=== PATIENT | male | born 1950 | race Caucasian/White ===

== ENCOUNTER 2018-07-01 11:08 | Day surgery (SDC) | payer MEDICARE, OTHER ==
[2018-06-29 14:46] VITALS: BMI 28.8
[~2018-07-01 11:08] MED LIST: LACTATED RINGERS 1,000 ML IV SCH
[2018-07-01 11:55] VITALS: RESP 16; TEMP 97.5
[2018-07-01] MEDS ORDERED: LIDOCAINE 1% 20 ML VIAL (10MG/ML) FOR IV START INTRADERMA ONE (12:01)
[2018-07-01] MEDS ORDERED: PROPOFOL 10 MG/ML 20 ML VIAL IV ONE (12:31)
--- NOTE | 2018-07-01 12:34 | P.GSHP ---
History of Present Illness H&P Date: 07/01/18 Chief Complaint: Colon cancer screening Patient here today for colonoscopy. Last colonoscopy 10 years ago. No family history of colon cancer. No bowel related complaints. Past Medical History Past Medical History: Cancer, Eye Disorder, Hyperlipidemia, Hypertension, Neurologic Disorder Additional Past Medical History / Comment(s): melanoma 30 yrs ago, hand tremors , Parkinson's, glaucoma History of Any Multi-Drug Resistant Organisms: None Reported Past Surgical History: Hernia Repair, Orthopedic Surgery Additional Past Surgical History / Comment(s): colonoscopy, ORIF left ankle, kelvin rotator cuff repair, arthroscopy knee, cataracts removed Past Anesthesia/Blood Transfusion Reactions: No Reported Reaction Smoking Status: Never smoker - Past Family History Father Family Medical History: Cancer Medications and Allergies Home Medications Medication Instructions Recorded Confirmed Type Amantadine HCl [Symmetrel] 100 mg PO TID 06/29/18 07/01/18 History Aspirin 81 mg PO DAILY 06/29/18 07/01/18 History Carbidopa-Levodopa 25-100 mg 2 each PO QID 06/29/18 07/01/18 History [Sinemet 25-100] Metoprolol Succinate [Toprol Xl] 50 mg PO HS 06/29/18 07/01/18 History Simvastatin [Zocor] 20 mg PO HS 06/29/18 07/01/18 History clonazePAM [KlonoPIN] 0.5 mg PO HS 06/29/18 07/01/18 History Allergies Allergy/AdvReac Type Severity Reaction Status Date / Time No Known Allergies Allergy Verified 07/01/18 11:48 Surgical - Exam Vital Signs Temp Pulse Resp BP Pulse Ox 97.5 F L 59 L 16 137/62 95 07/01/18 11:49 07/01/18 11:49 07/01/18 11:49 07/01/18 11:49 07/01/18 11:49 Physical exam: General: Well-developed, well-nourished HEENT: Normocephalic, sclerae nonicteric Abdomen: Nontender, nondistended Extremities: No edema Neuro: Alert and oriented Assessment and Plan (1) Colon cancer screening Narrative/Plan: Will proceed with colonoscopy at this time. Current Visit: Yes Status: Acute Code(s): Z12.11 - ENCOUNTER FOR SCREENING FOR MALIGNANT NEOPLASM OF COLON SNOMED Code(s): 287670225
--- NOTE | 2018-07-01 12:48 | P.PCN ---
Date of Procedure: 07/01/18 Procedure(s) Performed: PREOPERATIVE DIAGNOSIS: Colon cancer screening POSTOPERATIVE DIAGNOSIS: Diverticulosis, poor prep PROCEDURE: Colonoscopy ANESTHESIA: MAC SURGEON: Edouard Briones M.D. SPECIMENS: None ENDOSCOPIC PROCEDURE: The patient was placed on the endoscopy table in the left decubitus position. The Olympus colonoscope was inserted into the anus and passed under direct visualization to the base of the cecum. The appendiceal orifice was visualized. From that point the scope was slowly withdrawn inspecting all surfaces carefully. There were no neoplastic inflammatory or polypoid lesions throughout the cecum, ascending, transverse, descending, sigmoid and rectum. The patient's prep overall was quite poor. There was retained liquid and solid stool seen scattered throughout. There was moderate left-sided diverticulosis noted. Digital rectal examination was normal. The patient was taken to the recovery room in stable condition per anesthesia guidelines. RECOMMENDATIONS: Increase fiber. Consider short-term follow-up given the poor quality of the study.
[2018-07-01 13:16] VITALS: PULSE 52
[2018-07-01 13:30] VITALS: BP 121/75
== END 2018-07-01 13:48 | disposition home or self-care (01) ==
LOC: ORWHC2ENDO 11:08
PROVIDERS: ATTEND Surgery
DX: Z12.11 Encounter for screening for malignant neoplasm of colon (principal); K57.30 Diverticulosis of large intestine without perforation or abscess without bleeding; H40.9 Unspecified glaucoma; E78.5 Hyperlipidemia, unspecified; I10 Essential (primary) hypertension; G20 Parkinson's disease; Z85.820 Personal history of malignant melanoma of skin; Z79.82 Long term (current) use of aspirin; Z79.899 Other long term (current) drug therapy
CPT/HCPCS: J2704; G0121; 45378

== ENCOUNTER 2019-10-14 11:01 | Inpatient (IN) | payer MEDICARE, OTHER ==
[2019-10-14] MEDS ORDERED: SODIUM CHLORIDE 0.9% 500 ML 500 ML IV STA (11:46)
[2019-10-14] MEDS ORDERED: MECLIZINE 12.5 MG TAB PO STA (11:51)
--- NOTE | 2019-10-14 12:04 | ED ---
General Adult HPI - General Source: patient, RN notes reviewed, old records reviewed Mode of arrival: wheelchair Limitations: physical limitation <Moy Clayton - Last Filed: 10/14/19 14:48> <Chula Barbosa - Last Filed: 10/22/19 13:02> - General Chief complaint: Dizziness Stated complaint: dizzy, vomiting Time Seen by Provider: 10/14/19 11:36 - History of Present Illness Initial comments: 69-year-old male patient past history significant for Parkinson's disease, hypertension, hyperlipidemia presents to ED for chief complaint sensation of room spinning about him for the last 2 days. Percocet making her feel dizzy. Patient also reports that this morning he had some nausea and vomiting. Denies any recent falls or trauma. Denies any facial droop, upper or lower extremity weakness or paresthesias. Also reports he has a mild waxing and waning posterior lobe headache. Denies any rapid onset or any red flag symptoms. Denies worse headache of life. Denies any other complaints at this time. Systemic: Pt denies fatigue, fever/chills, rash. Pt denies weakness, night sweats, weight loss. Neuro: Pt denies headache, visual disturbances, syncope or pre-syncope. HEENT: Pt denies ocular discharge or irritation, otalgia, rhinorrhea, pharyngitis or notable lymphadenopathy. Cardiopulmonary: Pt denies chest pain, SOB, heart palpitations, dyspnea on exertion. Abdominal/GI: Pt denies abdominal pain, n/v/d. : Pt denies dysuria, burning w/ urination, frequency/urgency. Denies new onset urinary or bowel incontinence. MSK: Pt denies myalgia, loss of strength or function in extremities. Neuro: Pt denies new onset weakness, paresthesias. (Moy Clayton) - Related Data Home Medications Medication Instructions Recorded Confirmed Carbidopa-Levodopa 25-100 mg 2 tab PO BID@1200,1600 06/29/18 10/14/19 [Sinemet 25-100 mg] Carbidopa-Levodopa 25-100 mg 2 tab PO BID@0800,2000 10/14/19 10/14/19 [Sinemet 25-100 mg] Sennosides [Senokot] 8.6 mg PO HS 10/14/19 10/14/19 Simvastatin [Zocor] 40 mg PO HS 10/14/19 10/14/19 clonazePAM [KlonoPIN] 1 mg PO HS 10/14/19 10/14/19 Previous Rx's Medication Instructions Recorded Docusate [Colace] 100 mg PO BID #0 10/18/19 Ferrous Sulfate [Iron (65 MG 325 mg PO W/LUNCH #30 tab 10/18/19 Elemental)] Meclizine [Antivert] 12.5 mg PO BID PRN #0 tab 10/18/19 Allergies Allergy/AdvReac Type Severity Reaction Status Date / Time No Known Allergies Allergy Verified 10/22/19 11:49 Review of Systems ROS Other: All systems not noted in ROS Statement are negative. <Moy Clayton - Last Filed: 10/14/19 14:48> ROS Other: All systems not noted in ROS Statement are negative. <Chula Barbosa - Last Filed: 10/22/19 13:02> ROS Statement: Those systems with pertinent positive or pertinent negative responses have been documented in the HPI. Past Medical History Past Medical History: Cancer, Eye Disorder, Hyperlipidemia, Hypertension, N eurologic Disorder Additional Past Medical History / Comment(s): melanoma 30 yrs ago, hand tremors, Parkinson's, glaucoma History of Any Multi-Drug Resistant Organisms: None Reported Past Surgical History: Hernia Repair, Orthopedic Surgery Additional Past Surgical History / Comment(s): colonoscopy, ORIF left ankle, kelvin rotator cuff repair, arthroscopy knee, cataracts removed Past Anesthesia/Blood Transfusion Reactions: No Reported Reaction Smoking Status: Never smoker Past Alcohol Use History: None Reported Past Drug Use History: None Reported - Past Family History Father Family Medical History: Cancer <Moy Clayton - Last Filed: 10/14/19 14:48> General Exam Limitations: physical limitation <Moy Clayton - Last Filed: 10/14/19 14:48> - General Exam Comments Initial Comments: Constitutional: NAD, AOX3, Pt has pleasant affect. HEENT: NC/AT, trachea midline, neck supple, no lymphadenopathy. Posterior pharynx non erythematous, without exudates. External ears appear normal, without discharge. Mucous membranes moist. Eyes PERRLA, EOM intact. There is no scleral icterus. No pallor noted. Cardiopulmonary: RRR, no murmurs, rubs or gallops, no JVD noted. Lungs CTAB in anterior and posterior negro. No peripheral edema. Abdominal exam: Abdomen soft and non-distended. Abdomen non-tender to palpation in all 4 quadrants. Bowel sounds active in LLQ. No hepatosplenomegaly. No ecchy mosis Neuro: CN II-XII intact. No nuchal rigidity. No raccon eyes, no rodriguez sign, no hemotympanum. No cervical spinal tenderness. NIH 0. MSK: No posterior calf tenderness bilaterally, homans sign negative bilaterally. Posterior tibialis and radial pulse +2 bilaterally. Sensation intact in upper and lower extremities. Full active ROM in upper and lower extremities, 5/5 stregnth. (Moy Clayton) Course Vital Signs 10/14/19 10/14/19 10/14/19 11:16 14:28 16:00 Temperature 97.5 F L 97.7 F Pulse Rate 58 L 77 74 Respiratory 19 19 18 Rate Blood Pressure 111/61 124/68 130/66 O2 Sat by Pulse 97 97 99 Oximetry Medical Decision Making - Lab Data Result diagrams: 10/14/19 12:08 10/14/19 12:08 - EKG Data -: EKG Interpreted by Ny <Moy Clayton - Last Filed: 10/14/19 14:48> - Lab Data Result diagrams: 10/18/19 06:12 10/18/19 06:12 <Chula Barbosa - Last Filed: 10/22/19 13:02> - Medical Decision Making 69-year-old male patient past history significant for Parkinson's disease, hypertension, hyperlipidemia presents to ED for chief complaint sensation of r oom spinning about him for the last 2 days. Percocet making her feel dizzy. Patient also reports that this morning he had some nausea and vomiting. Denies any recent falls or trauma. Denies any facial droop, upper or lower extremity weakness or paresthesias. Also reports he has a mild waxing and waning posterior lobe headache. Denies any rapid onset or any red flag symptoms. Denies worse headache of life. Denies any other complaints at this time. Patient vital signs are stable, afebrile. Physical exam didn't suggest acute pathology. Laboratory investigation didn't reveal anemia of 8.0. Most recent was a hemoglobin of 15 2015. Troponin is negative. EKG is nonischemic. CT brain and subacute process. Further history taking revealed the patient has been having dark and tarry stools. Occult blood is negative. Patient does report that his vertigo symptoms are feeling much better after the meclizine. Patient will be admitted for symptomatically anemia, possible GI bleed. Case discussed with Dr. Barbosa. (Moy Clayton) I was available for consultation in the emergency department. The history and physical exam were done by the midlevel provider. I was consulted for this patients care. I reviewed the case with the midlevel provider and based on their presentation of the patient, I agree with the assessment, medical decision making and plan of care as documented. I discussed the case with Dr. Zuniga who accepted admission of the patient. Chart was dictated using [employer] dictation software. Attempts were made to correct any dictation errors however some typographical errors may persist. (Chula Barbosa) - Lab Data Lab Results 10/14/19 10/14/19 10/14/19 Range/Units 12:08 12:08 12:08 WBC 4.8 (3.8-10.6) k/uL RBC 3.91 L (4.30-5.90) m/uL Hgb 8.0 L (13.0-17.5) gm/dL Hct 26.9 L (39.0-53.0) % MCV 68.9 L (80.0-100.0) fL MCH 20.4 L (25.0-35.0) pg MCHC 29.7 L (31.0-37.0) g/dL RDW 15.8 H (11.5-15.5) % Plt Count 292 (150-450) k/uL Neutrophils % 81 % Lymphocytes % 10 % Monocytes % 5 % Eosinophils % 2 % Basophils % 1 % Neutrophils # 3.9 (1.3-7.7) k/uL Lymphocytes # 0.5 L (1.0-4.8) k/uL Monocytes # 0.2 (0-1.0) k/uL Eosinophils # 0.1 (0-0.7) k/uL Basophils # 0.0 (0-0.2) k/uL Hypochromasia Marked Poikilocytosis Slight Microcytosis Marked Sodium 138 (137-145) mmol/L Potassium 4.4 (3.5-5.1) mmol/L Chloride 103 (98-107) mmol/L Carbon Dioxide 23 (22-30) mmol/L Anion Gap 12 mmol/L BUN 18 (9-20) mg/dL Creatinine 0.82 (0.66-1.25) mg/dL Est GFR (CKD-EPI)AfAm >90 (>60 ml/min/1.73 sqM) Est GFR (CKD-EPI)NonAf 90 (>60 ml/min/1.73 sqM) Glucose 131 H (74-99) mg/dL Calcium 8.9 (8.4-10.2) mg/dL Magnesium 2.0 (1.6-2.3) mg/dL Iron (65-175) ug/dL TIBC (228-460) ug/dL % Saturation (15.00-50.00) Ferritin (22.0-322.0) ng/mL Total Bilirubin 1.1 (0.2-1.3) mg/dL AST 21 (17-59) U/L ALT 7 (4-49) U/L Alkaline Phosphatase 71 (38-126) U/L Troponin I <0.012 (0.000-0.034) ng/mL Total Protein 7.4 (6.3-8.2) g/dL Albumin 4.2 (3.5-5.0) g/dL TSH (0.465-4.680) mIU/L Urine Color Urine Appearance (Clear) Urine pH (5.0-8.0) Ur Specific [place] (1.001-1.035) Urine Protein (Negative) Urine Glucose (UA) (Negative) Urine Ketones (Negative) Urine Blood (Negative) Urine Nitrite (Negative) Urine Bilirubin (Negative) Urine Urobilinogen (<2.0) mg/dL Ur Leukocyte Esterase (Negative) Stool Occult Blood (Negative) 10/14/19 10/14/19 10/15/19 Range/Units 13:30 14:20 07:00 WBC 5.0 (3.8-10.6) k/uL RBC 3.90 L (4.30-5.90) m/uL Hgb 7.9 L (13.0-17.5) gm/dL Hct 27.2 L (39.0-53.0) % MCV 69.8 L (80.0-100.0) fL MCH 20.3 L (25.0-35.0) pg MCHC 29.1 L (31.0-37.0) g/dL RDW 15.9 H (11.5-15.5) % Plt Count 275 (150-450) k/uL Neutrophils % 68 % Lymphocytes % 18 % Monocytes % 7 % Eosinophils % 3 % Basophils % 1 % Neutrophils # 3.4 (1.3-7.7) k/uL Lymphocytes # 0.9 L (1.0-4.8) k/uL Monocytes # 0.3 (0-1.0) k/uL Eosinophils # 0.2 (0-0.7) k/uL Basophils # 0.1 (0-0.2) k/uL Hypochromasia Marked Poikilocytosis Slight Microcytosis Marked Sodium (137-145) mmol/L Potassium (3.5-5.1) mmol/L Chloride (98-107) mmol/L Carbon Dioxide (22-30) mmol/L Anion Gap mmol/L BUN (9-20) mg/dL Creatinine (0.66-1.25) mg/dL Est GFR (CKD-EPI)AfAm (>60 ml/min/1.73 sqM) Est GFR (CKD-EPI)NonAf (>60 ml/min/1.73 sqM) Glucose (74-99) mg/dL Calcium (8.4-10.2) mg/dL Magnesium (1.6-2.3) mg/dL Iron (65-175) ug/dL TIBC (228-460) ug/dL % Saturation (15.00-50.00) Ferritin (22.0-322.0) ng/mL Total Bilirubin (0.2-1.3) mg/dL AST (17-59) U/L ALT (4-49) U/L Alkaline Phosphatase (38-126) U/L Troponin I (0.000-0.034) ng/mL Total Protein (6.3-8.2) g/dL Albumin (3.5-5.0) g/dL TSH (0.465-4.680) mIU/L Urine Color Yellow Urine Appearance Clear (Clear) Urine pH 6.5 (5.0-8.0) Ur Specific [place] 1.018 (1.001-1.035) Urine Protein Negative (Negative) Urine Glucose (UA) Negative (Negative) Urine Ketones Negative (Negative) Urine Blood Negative (Negative) Urine Nitrite Negative (Negative) Urine Bilirubin Negative (Negative) Urine Urobilinogen 2.0 (<2.0) mg/dL Ur Leukocyte Esterase Negative (Negative) Stool Occult Blood Negative (Negative) 10/15/19 10/16/19 Range/Units 07:00 13:47 WBC 6.1 (3.8-10.6) k/uL RBC 4.04 L (4.30-5.90) m/uL Hgb 8.0 L (13.0-17.5) gm/dL Hct 28.0 L (39.0-53.0) % MCV 69.3 L (80.0-100.0) fL MCH 19.9 L (25.0-35.0) pg MCHC 28.7 L (31.0-37.0) g/dL RDW 15.8 H (11.5-15.5) % Plt Count 313 (150-450) k/uL Neutrophils % % Lymphocytes % % Monocytes % % Eosinophils % % Basophils % % Neutrophils # (1.3-7.7) k/uL Lymphocytes # (1.0-4.8) k/uL Monocytes # (0-1.0) k/uL Eosinophils # (0-0.7) k/uL Basophils # (0-0.2) k/uL Hypochromasia Marked Poikilocytosis Slight Microcytosis Marked Sodium 141 (137-145) mmol/L Potassium 4.4 (3.5-5.1) mmol/L Chloride 107 (98-107) mmol/L Carbon Dioxide 25 (22-30) mmol/L Anion Gap 9 mmol/L BUN 17 (9-20) mg/dL Creatinine 0.97 (0.66-1.25) mg/dL Est GFR (CKD-EPI)AfAm >90 (>60 ml/min/1.73 sqM) Est GFR (CKD-EPI)NonAf 79 (>60 ml/min/1.73 sqM) Glucose 92 (74-99) mg/dL Calcium 8.8 (8.4-10.2) mg/dL Magnesium (1.6-2.3) mg/dL Iron 9 L (65-175) ug/dL TIBC 419 (228-460) ug/dL % Saturation 2.15 L (15.00-50.00) Ferritin 8.1 L (22.0-322.0) ng/mL Total Bilirubin 0.8 (0.2-1.3) mg/dL AST 18 (17-59) U/L ALT 14 (4-49) U/L Alkaline Phosphatase 68 (38-126) U/L Troponin I (0.000-0.034) ng/mL Total Protein 7.2 (6.3-8.2) g/dL Albumin 4.0 (3.5-5.0) g/dL TSH 2.680 (0.465-4.680) mIU/L Urine Color Urine Appearance (Clear) Urine pH (5.0-8.0) Ur Specific [place] (1.001-1.035) Urine Protein (Negative) Urine Glucose (UA) (Negative) Urine Ketones (Negative) Urine Blood (Negative) Urine Nitrite (Negative) Urine Bilirubin (Negative) Urine Urobilinogen (<2.0) mg/dL Ur Leukocyte Esterase (Negative) Stool Occult Blood (Negative) - EKG Data EKG Comments: Ventricular rate 61, painful to 38, QRS 90, QT/QTc 416/14. Sinus rhythm with sinus rhythm and first-degree AV block. No concern for acute ischemia at this time. (Moy Clayton) Disposition Is patient prescribed a controlled substance at d/c from ED?: No <Moy Clayton - Last Filed: 10/14/19 14:48> <Chula Barbosa - Last Filed: 10/22/19 13:02> Clinical Impression: Symptomatic anemia Disposition: ADMITTED IP TO THIS HOSP Condition: Serious
[2019-10-14 12:25] LABS: Basophils % (A) 1 %; Eosinophils # (A) 0.1 k/uL (0-0.7); Eosinophils % (A) 2 %; HCT 26.9 % (39.0-53.0); Hypochromasia Marked; Lymphocytes # (A) 0.5 k/uL (1.0-4.8); Lymphocytes % (A) 10 %; MCH 20.4 pg (25.0-35.0); MCHC 29.7 g/dL (31.0-37.0); MCV 68.9 fL (80.0-100.0); Mean Platelet Volume 7.5; Microcytosis Marked; Monocytes # (A) 0.2 k/uL (0-1.0); Monocytes % (A) 5 %; Neutrophils # (A) 3.9 k/uL (1.3-7.7); Neutrophils % (A) 81 %; Platelet Count 292 k/uL (150-450); Poikilocytosis Slight; RBC 3.91 m/uL (4.30-5.90); RDW 15.8 % (11.5-15.5); WBC 4.8 k/uL (3.8-10.6)
--- NOTE | 2019-10-14 12:31 | CT ---
EXAMINATION TYPE: CT brain wo con DATE OF EXAM: 10/14/2019 COMPARISON: 09/13/2016 HISTORY: Dizziness, Vomitting CT DLP: 1099.[address] of the brain was performed. The ventricles, basal cisterns and sulci overlying the cerebral convexities demonstrate mild enlargem ent. There is no evidence for intracranial hemorrhage or sulcal effacement. There is decreased attenuation about the periventricular white matter and deep white matter of both c erebral hemispheres, compatible with chronic small vessel ischemia. Differential diagnosis does inclu de demyelination. No mass effects are seen.No midline shift. Osseous calvarium is intact. If symptoms persist consider MRI. IMPRESSION: 1. Age related atrophic and chronic small vessel ischemic change without acute intracranial process s een at this time.
[2019-10-14 12:41] LABS: ALT 7 U/L (4-49); AST 21 U/L (17-59); African American GFR (CKD) >90 (>60 ml/min/1.73 sqM); Albumin 4.2 g/dL (3.5-5.0); Alkaline Phosphatase 71 U/L (38-126); Anion Gap 12 mmol/L; Blood Urea Nitrogen 18 mg/dL (9-20); Calcium 8.9 mg/dL (8.4-10.2); Carbon Dioxide 23 mmol/L (22-30); Chloride 103 mmol/L (98-107); Glucose 131 mg/dL (74-99); Non-African American GFR(CKD) 90 (>60 ml/min/1.73 sqM); Potassium 4.4 mmol/L (3.5-5.1); Sodium 138 mmol/L (137-145); Total Bilirubin 1.1 mg/dL (0.2-1.3); Total Protein 7.4 g/dL (6.3-8.2)
[2019-10-14 14:39] LABS: Appearance,Urine Clear (Clear); Bilirubin,Urine Negative (Negative); Blood,Urine Negative (Negative); Color,Urine Yellow; Glucose,Urine (UA) Negative (Negative); Ketones,Urine Negative (Negative); Leukocyte Esterase,Urine Negative (Negative); Nitrite,Urine Negative (Negative); PH, Urine 6.5 (5.0-8.0); Protein,Urine Negative (Negative); Specific Gravity,Urine 1.018 (1.001-1.035)
[2019-10-14] MEDS ORDERED: PANTOPRAZOLE 40 MG/10 ML VIAL IVP STA (14:49)
[2019-10-14] MEDS ORDERED: NALOXONE 0.4 MG/ML 1 ML VIAL IV PRN (14:49)
[2019-10-14] MEDS: ATORVASTATIN 20 MG TAB PO SCH (21:57)
[2019-10-14] MEDS: METOPROLOL SUCCINATE (ER) 25 MG TAB.ER.24H PO SCH (21:57)
[2019-10-14] MEDS: clonazePAM 1 MG TAB PO SCH (21:57)
--- NOTE | 2019-10-14 23:33 | P.HPIM ---
History of Present Illness H&P Date: 10/14/19 Chief Complaint: Dizziness and near syncope Patient is a 69-year-old male with a known history of hypertension, hyperlipidemia, Parkinson's disease presented to ER with the complaints of dizziness for the past few days. Today morning patient had episodes of vomiting along with dizziness. Denied any syncopal episode or fall. Sometimes patient feels like room spinning. No complaints of nausea vomiting or abdominal pain. No hematemesis. Patient says that he noticed dark-colored stools recently. No complaints of chest pain or short of breath. Denied any qqol-[id number]-[id number] pain medication use. Patient does have occasional headaches otherwise. Denied any cough or sputum production. No fever no chills. EKG showed normal sinus rhythm with first-degree AV block CT head showed no acute intracranial process. Age related chronic small vessel ischemic changes noted. Hemoglobin 8.0, MCV 68.9 FOBT negative UA negative for infection. Chest x-ray was ordered. Review of Systems Constitutional: Patient denies any fever or chills . No generalized weakness or weight loss. Abdomen: Patient denied nausea vomiting and diarrhea and abdominal pain. Cardiovascular: Patient denies any chest pain or short of breath no palpi tations. Respiratory: patient denied any cough is from production. No shortness of breath Neurologic: Patient denied any numbness or tingling headache. Patient does have dizziness Musculoskeletal: Patient denies any complaints of joint swelling or deformity. Skin: Negative Psychiatric: Negative Endocrine: No heat or cold intolerance. No recent weight gain. Genitourinary: No dysuria or hematuria. All other 14 point ROS negative except the above Past Medical History Past Medical History: Cancer, Eye Disorder, Hyperlipidemia, Hypertension, Ne urologic Disorder Additional Past Medical History / Comment(s): melanoma 30 yrs ago, hand tremors, Parkinson's, glaucoma History of Any Multi-Drug Resistant Organisms: None Reported Past Surgical History: Hernia Repair, Orthopedic Surgery Additional Past Surgical History / Comment(s): colonoscopy, ORIF left ankle, kelvin rotator cuff repair, arthroscopy knee, cataracts removed Past Anesthesia/Blood Transfusion Reactions: No Reported Reaction Smoking Status: Never smoker Past Alcohol Use History: None Reported Past Drug Use History: None Reported - Past Family History Father Family Medical History: Cancer Medications and Allergies Home Medications Medication Instructions Recorded Confirmed Type Carbidopa-Levodopa 25-100 mg 2 tab PO BID@1200,1600 06/29/18 10/14/19 History [Sinemet 25-100] Carbidopa-Levodopa 25-100 mg 2 tab PO BID@0800,2000 10/14/19 10/14/19 History [Sinemet 25-100] Docusate [Colace] 100 mg PO DAILY 10/14/19 10/14/19 History Metoprolol Succinate (ER) [Toprol 25 mg PO HS 10/14/19 10/14/19 History Xl] Sennosides [Senokot] 8.6 mg PO HS 10/14/19 10/14/19 History Simvastatin [Zocor] 40 mg PO HS 10/14/19 10/14/19 History clonazePAM [KlonoPIN] 1 mg PO HS 10/14/19 10/14/19 History Allergies Allergy/AdvReac Type Severity Reaction Status Date / Time No Known Allergies Allergy Verified 10/14/19 16:52 Physical Exam Vitals: Vital Signs Temp Pulse Pulse Resp BP BP Pulse Ox 10/14/19 23:16 20 10/14/19 19:02 98.3 F 68 12 110/67 96 10/14/19 16:00 97.7 F 74 18 130/66 99 10/14/19 14:28 77 19 124/68 97 10/14/19 11:16 97.5 F L 58 L 19 111/61 97 Intake and Output 10/14/19 10/14/19 10/15/19 14:59 22:59 06:59 Intake Total 200 Balance 200 Intake: Oral 200 Other: # Voids 1 Weight 102.058 kg 102.058 kg PHYSICAL EXAMINATION: Patient is lying in the bed comfortably, no acute distress, awake alert and oriented.. HEENT: Normocephalic. Neck is supple. Pupils reactive. Nostrils clear. Oral cavity is moist. Ears reveal no drainage. Neck reveals no JVD, carotid bruits, or thyromegaly. CHEST EXAMINATION: Trachea is central. Symmetrical expansion. Lung negro clear to auscultation and percussion. CARDIAC: Normal S1, S2 with no gallops. No murmurs ABDOMEN: Soft. Bowel sounds normal. No organomegaly. No abdominal bruits. Extremities: reveal no edema. No clubbing or cyanosis Neurologically awake, alert, oriented x3 . Parkinson's tremors.. No focal deficits noted Skin: No rash or skin lesions. Psychiatric: Coperative. Nonsuicidal Musculoskeletal: No joint swelling or deformity. Normal range of motion. Results CBC & Chem 7: 10/14/19 12:08 10/14/19 12:08 Labs: Abnormal Lab Results - Last 24 Hours (Table) 10/14/19 10/14/19 Range/Units 12:08 12:08 RBC 3.91 L (4.30-5.90) m/uL Hgb 8.0 L (13.0-17.5) gm/dL Hct 26.9 L (39.0-53.0) % MCV 68.9 L (80.0-100.0) fL MCH 20.4 L (25.0-35.0) pg MCHC 29.7 L (31.0-37.0) g/dL RDW 15.8 H (11.5-15.5) % Lymphocytes # 0.5 L (1.0-4.8) k/uL Glucose 131 H (74-99) mg/dL Thrombosis Risk Factor Assmnt - DVT/VTE Prophylaxis DVT/VTE Prophylaxis: Mechanical Prophylaxis ordered - Choose All That Apply Any of the Below Risk Factors Present?: Yes Other Risk Factors: Yes Each Risk Factor Represents 2 Points: Age 61-74 years Other congenital or acquired thrombophilia - If yes, enter type in comment: Yes Thrombosis Risk Factor Assessment Total Risk Factor Score: 2 Thrombosis Risk Factor Assessment Level: Low Risk Assessment and Plan Assessment: Dizziness and lightheadedness possible vertigo versus symptomatic anemia. Symptomatic anemia hemoglobin 8.0. FOBT negative. Microcytic iron deficiency anemia Parkinson's disease Hypertension Hyperlipidemia History of melanoma 30 years ago Osteoarthritis DVT prophylaxis with heparin subcu Plan: Patient will be continued on telemetry monitoring. Monitor H&H. Will check iron profile. We'll rule out cardiac etiology for dizziness. 2-D echocardi ogram and carotid duplex was ordered. FOBT is negative. Continue with home blood pressure medications. Patient is also on metoprolol 20 mg daily. Further recommendations based on the clinical course. Time with Patient: Greater than 30
[2019-10-15] MEDS: HEPARIN SODIUM,PORCINE 5,000 UNIT/ML 1 ML VIAL SQ SCH ×4 (00:32→23:17)
[2019-10-15 07:45] LABS: Basophils # (A) 0.1 k/uL (0-0.2); Basophils % (A) 1 %; Eosinophils # (A) 0.2 k/uL (0-0.7); Eosinophils % (A) 3 %; HCT 27.2 % (39.0-53.0); HGB 7.9 gm/dL (13.0-17.5); Hypochromasia Marked; Lymphocytes # (A) 0.9 k/uL (1.0-4.8); Lymphocytes % (A) 18 %; MCH 20.3 pg (25.0-35.0); MCHC 29.1 g/dL (31.0-37.0); MCV 69.8 fL (80.0-100.0); Mean Platelet Volume 8.1; Microcytosis Marked; Monocytes # (A) 0.3 k/uL (0-1.0); Monocytes % (A) 7 %; Neutrophils # (A) 3.4 k/uL (1.3-7.7); Neutrophils % (A) 68 %; Platelet Count 275 k/uL (150-450); Poikilocytosis Slight; RDW 15.9 % (11.5-15.5)
[2019-10-15 07:55] LABS: ALT 14 U/L (4-49); AST 18 U/L (17-59); African American GFR (CKD) >90 (>60 ml/min/1.73 sqM); Alkaline Phosphatase 68 U/L (38-126); Anion Gap 9 mmol/L; Blood Urea Nitrogen 17 mg/dL (9-20); Calcium 8.8 mg/dL (8.4-10.2); Carbon Dioxide 25 mmol/L (22-30); Chloride 107 mmol/L (98-107); Glucose 92 mg/dL (74-99); Non-African American GFR(CKD) 79 (>60 ml/min/1.73 sqM); Potassium 4.4 mmol/L (3.5-5.1); Sodium 141 mmol/L (137-145); Total Bilirubin 0.8 mg/dL (0.2-1.3); Total Protein 7.2 g/dL (6.3-8.2)
--- NOTE | 2019-10-15 08:38 | XR ---
EXAMINATION TYPE: XR chest 1V DATE OF EXAM: 10/15/2019 COMPARISON: NONE HISTORY: Shortness TECHNIQUE: Single frontal view of the chest is obtained. FINDINGS: There is no focal air space opacity, pleural effusion, or pneumothorax seen. The cardiac silhouette size is within normal limits. Retrocardiac density likely represents a hiatal hernia. The osseous structures are intact. IMPRESSION: 1. Left retrocardiac density most likely related to hiatal hernia correlate clinically to exclude und erlying. PA and lateral views of the chest could be obtained.
--- NOTE | 2019-10-15 08:49 | US ---
EXAMINATION TYPE: US carotid duplex BILAT DATE OF EXAM: 10/14/2019 COMPARISON: NONE CLINICAL HISTORY: Dizziness. EXAM MEASUREMENTS: RIGHT: Peak Systolic Velocity (PSV) cm/sec ----- Right CCA: 129.0 ----- Right ICA: 115.0 ----- Right ECA: 148.0 ICA/CCA ratio: 0.89 RIGHT: End Diastole cm/sec ----- Right CCA: 25.5 ----- Right ICA: 33.5 ----- Right ECA: 14.2 LEFT: Peak Systolic Velocity (PSV) cm/sec ----- Left CCA: 83.9 ----- Left ICA: 95.2 ----- Left ECA: 114.0 ICA/CCA ratio: 1.13 LEFT: End Diastole cm/sec ----- Left CCA: 22.5 ----- Left ICA: 30.7 ----- Left ECA: 10.5 VERTEBRALS (direction of flow): Right Vertebral: Antegrade Left Vertebral: Antegrade Rhythm: Arrhythmia, as seen on multiple images Very mild intimal wall thickening is noted at bilateral carotid bifurcation, and PSV is wnl. IMPRESSION: 1. Intimal thickening with no significant hemodynamic stenosis 2. Cardiac dysrhythmia Criteria for Assigning % of Stenosis / Diameter reduction (Estimation based on the indirect measurements of the internal carotid artery velocities (ICA PSV). 1. Normal (no stenosis)=ICA PSV < 125 cm/s: ratio < 2.0: ICA EDV<40 cm/s. 2. Less than 50% stenosis=ICA PSV < 125 cm/s: ratio < 2.0: ICA EDV<40 cm/s. 3. 50 to 69% stenosis=ICA PSV of 125 to 230 cm/s: ration 2.0 ? 4.0: ICA EDV 40-100 cm/s. 4. Greater than 70% stenosis to near occlusion= ICA PSV > 230 cm/s: ratio > 4.0: ICA EDV > 100 cm/s. 5. Near occlusion= ICA PSV velocities may be low or undetectable: variable ratio and ICA EDV. 6. Total occlusion=unable to detect flow.
[2019-10-15] MEDS: CARBIDOPA-LEVODOPA 25-100 MG 1 EACH TAB PO SCH ×4 (10:33→20:51)
[2019-10-15 18:20] LABS: % Iron Saturation 2.15 (15.00-50.00); Ferritin 8.1 ng/mL (22.0-322.0); Iron 9 ug/dL (65-175); Total Iron Binding Capacity 419 ug/dL (228-460)
[2019-10-15] MEDS: METOPROLOL SUCCINATE (ER) 25 MG TAB.ER.24H PO SCH (20:51)
[2019-10-15] MEDS: clonazePAM 1 MG TAB PO SCH (20:51)
[2019-10-15] MEDS: ATORVASTATIN 20 MG TAB PO SCH (20:52)
[2019-10-16] MEDS: CARBIDOPA-LEVODOPA 25-100 MG 1 EACH TAB PO SCH ×4 (08:13→20:27)
[2019-10-16] MEDS: HEPARIN SODIUM,PORCINE 5,000 UNIT/ML 1 ML VIAL SQ SCH ×3 (08:13→23:35)
[2019-10-16] MEDS ORDERED: SODIUM FERRIC GLUCONAT-SUCROSE 125 MG in SODIUM CHLORIDE 0.9% 100 ML IVPB ONE (13:00)
[2019-10-16] MEDS ORDERED: DOCUSATE 100 MG CAP PO PRN (13:15)
[2019-10-16 14:16] LABS: Hypochromasia Marked; MCH 19.9 pg (25.0-35.0); MCHC 28.7 g/dL (31.0-37.0); MCV 69.3 fL (80.0-100.0); Mean Platelet Volume 8.1; Microcytosis Marked; Platelet Count 313 k/uL (150-450); Poikilocytosis Slight; RBC 4.04 m/uL (4.30-5.90); RDW 15.8 % (11.5-15.5); WBC 6.1 k/uL (3.8-10.6)
[2019-10-16] MEDS: clonazePAM 1 MG TAB PO SCH (20:27)
[2019-10-16] MEDS: METOPROLOL SUCCINATE (ER) 25 MG TAB.ER.24H PO SCH (20:27)
[2019-10-16] MEDS: ATORVASTATIN 20 MG TAB PO SCH (20:27)
--- NOTE | 2019-10-16 22:27 | P.PN ---
Subjective Progress Note Date: 10/15/19 Principal diagnosis: Dizziness Patient is a 69-year-old male with a known history of hypertension, hyperlipidemia, Parkinson's disease presented to ER with the complaints of dizz iness for the past few days. Today morning patient had episodes of vomiting along with dizziness. Denied any syncopal episode or fall. Sometimes patient feels like room spinning. No complaints of nausea vomiting or abdominal pain. No hematemesis. Patient says that he noticed dark-colored stools recently. No complaints of chest pain or short of breath. Denied any [id number] pain medication use. Patient does have occasional headaches otherwise. Denied any cough or sputum production. No fever no chills. EKG showed normal sinus rhythm with first-degree AV block CT head showed no acute intracranial process. Age related chronic small vessel ischemic changes noted. Hemoglobin 8.0, MCV 68.9 FOBT negative UA negative for infection. Chest x-ray was ordered. 10/15/2019 Patient says that his dizziness is better. Still having symptoms when he gets up and walk to the bathroom. 2-D echocardiogram and carotid duplex was done. No complaints of chest pain. Hemoglobin level is 7.9 today. Iron profile is pending. Monitor H&H. No nausea vomiting or abdominal pain. No diarrhea or dysuria. Current medications reviewed. Objective - Vital Signs Vital signs: Vital Signs Temp 98.5 F 10/15/19 14:59 Pulse 81 10/15/19 15:48 Resp 15 10/15/19 14:59 BP 101/62 10/15/19 15:48 Pulse Ox 94 L 10/15/19 14:59 Intake & Output 10/15/19 10/15/19 10/16/19 06:59 18:59 06:59 Intake Total 600 Balance 600 Weight 102.058 kg Intake: Oral 600 Other: Voiding Method Toilet Toilet Urinal Urinal # Voids 1 1 - Exam PHYSICAL EXAMINATION: Patient is lying in the bed comfortably, no acute distress, awake alert and oriented.. HEENT: Normocephalic. Neck is supple. Pupils reactive. Nostrils clear. Oral cavity is moist. Ears reveal no drainage. Neck reveals no JVD, carotid bruits, or thyromegaly. CHEST EXAMINATION: Trachea is central. Symmetrical expansion. Lung negro clear to auscultation and percussion. CARDIAC: Normal S1, S2 with no gallops. No murmurs ABDOMEN: Soft. Bowel sounds normal. No organomegaly. No abdominal bruits. Extremities: reveal no edema. No clubbing or cyanosis Neurologically awake, alert, oriented x3 . Parkinson's tremors.. No focal deficits noted Skin: No rash or skin lesions. Psychiatric: Coperative. Nonsuicidal Musculoskeletal: No joint swelling or deformity. Normal range of motion. - Labs CBC & Chem 7: 10/16/19 13:47 10/15/19 07:00 Labs: Abnormal Lab Results - Last 24 Hours (Table) 10/15/19 10/15/19 Range/Units 07:00 07:00 RBC 3.90 L (4.30-5.90) m/uL Hgb 7.9 L (13.0-17.5) gm/dL Hct 27.2 L (39.0-53.0) % MCV 69.8 L (80.0-100.0) fL MCH 20.3 L (25.0-35.0) pg MCHC 29.1 L (31.0-37.0) g/dL RDW 15.9 H (11.5-15.5) % Lymphocytes # 0.9 L (1.0-4.8) k/uL Iron 9 L (65-175) ug/dL % Saturation 2.15 L (15.00-50.00) Ferritin 8.1 L (22.0-322.0) ng/mL Assessment and Plan Assessment: Dizziness and lightheadedness possible vertigo versus symptomatic anemia. Symptomatic anemia hemoglobin 8.0--7.9. FOBT negative. Microcytic iron deficiency anemia Parkinson's disease Hypertension Hyperlipidemia History of melanoma 30 years ago Osteoarthritis DVT prophylaxis with heparin subcu Plan: Patient will be continued on telemetry monitoring. Monitor H&H. 2-D echocardiogram and carotid duplex was ordered. FOBT is negative. Will check iron profile. We'll rule out cardiac etiology for dizziness. Continue with home blood pressure medications. Patient is also on metoprolol 20 mg daily. Further recommendations based on the clinical course. Time with Patient: Greater than 30
--- NOTE | 2019-10-16 22:34 | P.PN ---
Subjective Progress Note Date: 10/16/19 Principal diagnosis: Dizziness Patient is a 69-year-old male with a known history of hypertension, hyperlipidemia, Parkinson's disease presented to ER with the complaints of dizz iness for the past few days. Today morning patient had episodes of vomiting along with dizziness. Denied any syncopal episode or fall. Sometimes patient feels like room spinning. No complaints of nausea vomiting or abdominal pain. No hematemesis. Patient says that he noticed dark-colored stools recently. No complaints of chest pain or short of breath. Denied any ruhw-dhv-ljhiiwc pain medication use. Patient does have occasional headaches otherwise. Denied any cough or sputum production. No fever no chills. EKG showed normal sinus rhythm with first-degree AV block CT head showed no acute intracranial process. Age related chronic small vessel ischemic changes noted. Hemoglobin 8.0, MCV 68.9 FOBT negative UA negative for infection. Chest x-ray was ordered. 10/15/2019 Patient says that his dizziness is better. Still having symptoms when he gets up and walk to the bathroom. 2-D echocardiogram and carotid duplex was done. No complaints of chest pain. Hemoglobin level is 7.9 today. Iron profile is pending. Monitor H&H. No nausea vomiting or abdominal pain. No diarrhea or dysuria. 10/16/2016 Patient still complains of dizziness. EKG showed sinus arrhythmia. 2-D echoc ardiogram was ordered and cardiology was consulted for further evaluation of dizziness. Hemoglobin is stable at 8.0. Iron profile showed deficiency. Patient will be given IV iron and follow-up H&H. Carotid duplex showed no significant stenosis. Continue on telemetry monitoring. No complaints of chest pain. No nausea vomiting or abdominal pain. Tolerating oral diet. Discussed with the family at bedside in detail. Current medications reviewed. Objective - Vital Signs Vital signs: Vital Signs Temp 98.8 F 10/16/19 19:25 Pulse 70 10/16/19 19:25 Resp 18 10/16/19 19:25 BP 96/58 10/16/19 19:25 Pulse Ox 95 10/16/19 19:25 Intake & Output 10/16/19 10/16/19 10/17/19 06:59 18:59 06:59 Intake Total 680 Balance 680 Intake: Intake, IV Titration 100 Amount Sodium Ferric Gluconat- 100 Sucrose 125 mg In Sodium Chloride 0.9% 100 ml @ 100 mls/hr IVPB ONCE ONE Rx#:[id number] Oral 580 Other: Voiding Method Toilet Toilet Urinal Urinal # Voids 1 2 - Exam PHYSICAL EXAMINATION: Patient is lying in the bed comfortably, no acute distress, awake alert and oriented.. HEENT: Normocephalic. Neck is supple. Pupils reactive. Nostrils clear. Oral cavity is moist. Ears reveal no drainage. Neck reveals no JVD, carotid bruits, or thyromegaly. CHEST EXAMINATION: Trachea is central. Symmetrical expansion. Lung negro clear to auscultation and percussion. CARDIAC: Normal S1, S2 with no gallops. No murmurs ABDOMEN: Soft. Bowel sounds normal. No organomegaly. No abdominal bruits. Extremities: reveal no edema. No clubbing or cyanosis Neurologically awake, alert, oriented x3 . Parkinson's tremors.. No focal deficits noted Skin: No rash or skin lesions. Psychiatric: Coperative. Nonsuicidal Musculoskeletal: No joint swelling or deformity. Normal range of motion. - Labs CBC & Chem 7: 10/16/19 13:47 10/15/19 07:00 Labs: Abnormal Lab Results - Last 24 Hours (Table) 10/16/19 Range/Units 13:47 RBC 4.04 L (4.30-5.90) m/uL Hgb 8.0 L (13.0-17.5) gm/dL Hct 28.0 L (39.0-53.0) % MCV 69.3 L (80.0-100.0) fL MCH 19.9 L (25.0-35.0) pg MCHC 28.7 L (31.0-37.0) g/dL RDW 15.8 H (11.5-15.5) % Assessment and Plan Assessment: Dizziness and lightheadedness possible vertigo versus symptomatic anemia. Rule out cardiac arrhythmia Symptomatic anemia hemoglobin 8.0--7.9--8.0 FOBT negative. Microcytic iron deficiency anemia Parkinson's disease Hypertension Hyperlipidemia History of melanoma 30 years ago Osteoarthritis DVT prophylaxis with heparin subcu Plan: Patient will be continued on telemetry monitoring. Monitor H&H. 2-D echocardiogram and carotid duplex was ordered. FOBT is negative. Will check iron profile. We'll rule out cardiac etiology for dizziness. Continue with home blood pressure medications. Patient is also on metoprolol 20 mg daily. Further recommendations based on the clinical course. Time with Patient: Greater than 30
[2019-10-17 07:18] LABS: Anisocytosis Slight; HCT 27.4 % (39.0-53.0); HGB 7.9 gm/dL (13.0-17.5); Hypochromasia Marked; MCH 19.6 pg (25.0-35.0); MCHC 28.8 g/dL (31.0-37.0); MCV 67.9 fL (80.0-100.0); Mean Platelet Volume 7.3; Microcytosis Marked; Platelet Count 294 k/uL (150-450); Poikilocytosis Slight; RBC 4.04 m/uL (4.30-5.90); RDW 16.1 % (11.5-15.5); WBC 5.9 k/uL (3.8-10.6)
[2019-10-17] MEDS: HEPARIN SODIUM,PORCINE 5,000 UNIT/ML 1 ML VIAL SQ SCH ×3 (07:29→23:23)
[2019-10-17] MEDS: CARBIDOPA-LEVODOPA 25-100 MG 1 EACH TAB PO SCH ×4 (07:29→19:58)
[2019-10-17] MEDS ORDERED: SODIUM FERRIC GLUCONAT-SUCROSE 125 MG in SODIUM CHLORIDE 0.9% 100 ML IVPB SCH (09:00)
[2019-10-17] MEDS: FERROUS SULFATE 325 MG TAB PO SCH (11:39)
--- NOTE | 2019-10-17 13:10 | P.CRDCN ---
History of Present Illness Consult date: 10/17/19 Chief complaint: dizziness History of present illness: The patient is a 69-year-old male with past history of Parkinson's disease, hypertension, and dyslipidemia, who presents to the hospital after experiencing increased dizziness. He decided to come to the hospital when he had an episode associated with vomiting. He denies any syncope or fall. He states this is triggered with positional changes and sometimes feels as though the room is sp inning after he is taken several steps. He also notes that he's had some dark- colored stools recently. He denies any chest pain, shortness of breath, palpitations, or lower extremity edema. He has been experiencing chronic fatigue over the last 6 months. EKG showed sinus rhythm with borderline first-degree AV block. Troponins negative 1, TSH 2.680, and hemoglobin notably low at 7.9. He is currently being treated with iron infusions. Occult blood was negative. Carotid Doppler shows mild disease bilaterally. Echocardiogram reveals normal LV function without significant valvular abnormalities. PAST MEDICAL HISTORY: Parkinson's disease, hypertension, dyslipidemia REVIEW OF SYSTEMS: No fever or chills. No cough or expectoration. No diaphoresis. Positive for dizziness and vertigo. Patient denies headache, blurred vision, double vision. Patient denies any stomach discomfort. No additional episodes of nausea/vomiting. No hematochezia. No hematemesis. Positive for dark stools. Denies dysuria or hematuria. No muscle weakness or numbness. Positive for generalized weakness. No exertional chest discomfort or shortness of breath. PHYSICAL EXAMINATION: This is a 69-year-old male in no apparent distress at the time of my examination. HEENT: Head is atraumatic, normocephalic. Pupils are equal, round. Sclerae anicteric. Conjunctivae are clear. Mucous membranes of the mouth are moist. Neck is supple. There is no jugular venous distention. No carotid bruit is heard. CHEST EXAMINATION: Lungs are clear to auscultation. No chest wall tenderness is noted on palpation or with deep breathing. HEART EXAMINATION: Heart regular rate and rhythm. S1, S2 heard. No murmurs, gallops or rub. ABDOMEN: Soft, nontender. Bowel sounds are heard. No organomegaly noted. EXTREMITIES: 2+ peripheral pulses with no evidence of peripheral edema and no calf tenderness noted. NEUROLOGIC EXAMINATION: Patient is awake, alert and oriented x3. LABORATORY DATA: WBC 5.9, hemoglobin 7.9, hematocrit 27.4, platelet 294, sodium 141, potassium 4.4, BUN 17, creatinine 0.97, and TSH 2.680. FINAL ASSESSMENT AND PLAN: #1 dizziness, possible orthostatic hypotension versus anemia #2 anemia, hemoglobin 7.9, occult blood negative #3 hypertension, currently well controlled #4 dyslipidemia PLAN: We will check orthostatic blood pressures and fasting lipid profile. Unsure of the for Toprol-XL; consider stopping the patient has hypotension. Anemia management per primary care. Thank you kindly for this consultation. No further recommendations at this time and will follow-up outpatient. Past Medical History Past Medical History: Cancer, Eye Disorder, Hyperlipidemia, Hypertension, Neurologic Disorder Additional Past Medical History / Comment(s): melanoma 30 yrs ago, hand tremors, Parkinson's, glaucoma History of Any Multi-Drug Resistant Organisms: None Reported Past Surgical History: Hernia Repair, Orthopedic Surgery Additional Past Surgical History / Comment(s): colonoscopy, ORIF left ankle, kelvin rotator cuff repair, arthroscopy knee, cataracts removed Past Anesthesia/Blood Transfusion Reactions: No Reported Reaction Smoking Status: Never smoker - Past Family History Father Family Medical History: Cancer Medications and Allergies Home Medications Medication Instructions Recorded Confirmed Type Carbidopa-Levodopa 25-100 mg 2 tab PO BID@1200,1600 06/29/18 10/14/19 History [Sinemet 25-100] Carbidopa-Levodopa 25-100 mg 2 tab PO BID@0800,2000 10/14/19 10/14/19 History [Sinemet 25-100] Docusate [Colace] 100 mg PO DAILY 10/14/19 10/14/19 History Metoprolol Succinate (ER) [Toprol 25 mg PO HS 10/14/19 10/14/19 History Xl] Sennosides [Senokot] 8.6 mg PO HS 10/14/19 10/14/19 History Simvastatin [Zocor] 40 mg PO HS 10/14/19 10/14/19 History clonazePAM [KlonoPIN] 1 mg PO HS 10/14/19 10/14/19 History Allergies Allergy/AdvReac Type Severity Reaction Status Date / Time No Known Allergies Allergy Verified 10/14/19 16:52 Physical Exam Vitals: Vital Signs Temp Pulse Resp BP BP Pulse Ox 10/17/19 07:29 98.6 F 67 16 117/71 97 10/17/19 01:15 98.8 F 73 16 116/72 93 L 10/16/19 19:25 98.8 F 70 18 96/58 95 10/16/19 13:55 97.9 F 72 16 117/61 95 Intake and Output 10/16/19 10/17/19 10/17/19 22:59 06:59 14:59 Other: Voiding Method Toilet Toilet Urinal Urinal # Voids 1 2 Results 10/17/19 06:28 10/15/19 07:00 CBC 10/16/19 10/17/19 Range/Units 13:47 06:28 WBC 6.1 5.9 (3.8-10.6) k/uL RBC 4.04 L 4.04 L (4.30-5.90) m/uL Hgb 8.0 L 7.9 L (13.0-17.5) gm/dL Hct 28.0 L 27.4 L (39.0-53.0) % Plt Count 313 294 (150-450) k/uL Current Medications Generic Name Dose Route Start Last Admin Trade Name Freq PRN Reason Stop Dose Admin Atorvastatin Calcium 20 mg 10/14/19 21:00 10/16/19 20:27 Lipitor PO 20 mg HS FUNMILAYO Administration Carbidopa/Levodopa 2 each 10/15/19 08:00 10/17/19 07:29 Sinemet 25-100 PO 2 each BID@0800,2000 FUNMILAYO Administration Carbidopa/Levodopa 2 each 10/15/19 12:00 10/17/19 11:39 Sinemet 25-100 PO 2 each BID@1200,1600 FUNMILAYO Administration Clonazepam 1 mg 10/14/19 21:00 10/16/19 20:27 Klonopin PO 1 mg HS FUNMILAYO Administration Docusate Sodium 100 mg 10/16/19 13:15 10/17/19 07:31 Colace PO 100 mg BID PRN Administration Constipation Ferrous Sulfate 325 mg 10/17/19 12:30 10/17/19 11:39 Feosol PO 325 mg W/LUNCH FUNMILAYO Administration Heparin Sodium (Porcine) 5,000 unit 10/15/19 00:00 10/17/19 07:29 Heparin SQ 5,000 unit Q8HR FUNMILAYO Administration Ferric Sodium Gluconate 125 mg 110 mls @ 100 mls/hr 10/17/19 09:00 10/17/19 09:25 / Sodium Chloride IVPB 100 mls/hr DAILY FUNMILAYO Administration Metoprolol Succinate 25 mg 10/14/19 21:00 10/16/19 20:27 Toprol Xl PO 25 mg HS FUNMILAYO Administration Naloxone HCl 0.2 mg 10/14/19 14:49 Narcan IV Q2M PRN Opioid Reversal Intake and Output 10/16/19 10/17/19 10/17/19 22:59 06:59 14:59 Other: Voiding Method Toilet Toilet Urinal Urinal # Voids 1 2 10/17/19 06:28 10/15/19 07:00
[2019-10-17 13:26] LABS: Cholesterol 110 mg/dL (<200); HDL Cholesterol 35 mg/dL (40-60); LDL Cholesterol,Calculated 63 mg/dL (0-99); Triglycerides 62 mg/dL (<150)
[2019-10-17] MEDS ORDERED: MECLIZINE 12.5 MG TAB PO PRN (16:22)
[2019-10-17] MEDS: clonazePAM 1 MG TAB PO SCH (19:58)
[2019-10-17] MEDS: ATORVASTATIN 20 MG TAB PO SCH (19:58)
--- NOTE | 2019-10-17 23:41 | P.PN ---
Subjective Progress Note Date: 10/17/19 Principal diagnosis: Dizziness Patient is a 69-year-old male with a known history of hypertension, hyperlipidemia, Parkinson's disease presented to ER with the complaints of dizz iness for the past few days. Today morning patient had episodes of vomiting along with dizziness. Denied any syncopal episode or fall. Sometimes patient feels like room spinning. No complaints of nausea vomiting or abdominal pain. No hematemesis. Patient says that he noticed dark-colored stools recently. No complaints of chest pain or short of breath. Denied any snoq-pow-qfwpffz pain medication use. Patient does have occasional headaches otherwise. Denied any cough or sputum production. No fever no chills. EKG showed normal sinus rhythm with first-degree AV block CT head showed no acute intracranial process. Age related chronic small vessel ischemic changes noted. Hemoglobin 8.0, MCV 68.9 FOBT negative UA negative for infection. Chest x-ray was ordered. 10/15/2019 Patient says that his dizziness is better. Still having symptoms when he gets up and walk to the bathroom. 2-D echocardiogram and carotid duplex was done. No complaints of chest pain. Hemoglobin level is 7.9 today. Iron profile is pending. Monitor H&H. No nausea vomiting or abdominal pain. No diarrhea or dysuria. 10/16/2016 Patient still complains of dizziness. EKG showed sinus arrhythmia. 2-D echoc ardiogram was ordered and cardiology was consulted for further evaluation of dizziness. Hemoglobin is stable at 8.0. Iron profile showed deficiency. Patient will be given IV iron and follow-up H&H. Carotid duplex showed no significant stenosis. Continue on telemetry monitoring. No complaints of chest pain. No nausea vomiting or abdominal pain. Tolerating oral diet. Discussed with the family at bedside in detail. 10/17/2019 Patient is currently lying in the bed comfortably. Complaints of dizziness with getting up from the bed and also sometimes feels like room spinning. Was started on meclizine when necessary. Patient was seen by cardiology. Orthostatic vitals were ordered. 2-D echocardiogram report is pending. Patient was found to have iron deficiency anemia. Continue with iron supplementation and monitor H&H. Hemoglobin level is stable at 7.9. No fever no chills. No cough or sputum production. No headache. No shortness of breath. No chest pain. Metoprolol has been discontinued. Current medications reviewed. Objective - Vital Signs Vital signs: Vital Signs Temp 97.6 F 10/17/19 14:25 Pulse 72 10/17/19 14:25 Resp 16 10/17/19 14:25 BP 104/64 10/17/19 14:25 Pulse Ox 94 L 10/17/19 14:25 Intake & Output 10/16/19 10/17/19 10/17/19 18:59 06:59 18:59 Intake Total 680 680 Balance 680 680 Intake: Intake, IV Titration 100 100 Amount Sodium Ferric Gluconat- 100 Sucrose 125 mg In Sodium Chloride 0.9% 100 ml @ 100 mls/hr IVPB DAILY [facility] Rx#:[id number] Sodium Ferric Gluconat- 100 Sucrose 125 mg In Sodium Chloride 0.9% 100 ml @ 100 mls/hr IVPB ONCE ONE Rx#:[id number] Oral 580 580 Other: Voiding Method Toilet Toilet Urinal Urinal # Voids 2 2 3 # Bowel Movements 0 - Exam PHYSICAL EXAMINATION: Patient is lying in the bed comfortably, no acute distress, awake alert and oriented.. HEENT: Normocephalic. Neck is supple. Pupils reactive. Nostrils clear. Oral cavity is moist. Ears reveal no drainage. Neck reveals no JVD, carotid bruits, or thyromegaly. CHEST EXAMINATION: Trachea is central. Symmetrical expansion. Lung negro clear to auscultation and percussion. CARDIAC: Normal S1, S2 with no gallops. No murmurs ABDOMEN: Soft. Bowel sounds normal. No organomegaly. No abdominal bruits. Extremities: reveal no edema. No clubbing or cyanosis Neurologically awake, alert, oriented x3 . Parkinson's tremors.. No focal deficits noted Skin: No rash or skin lesions. Psychiatric: Coperative. Nonsuicidal Musculoskeletal: No joint swelling or deformity. Normal range of motion. - Labs CBC & Chem 7: 10/17/19 06:28 10/15/19 07:00 Labs: Abnormal Lab Results - Last 24 Hours (Table) 10/17/19 10/17/19 Range/Units 06:28 06:28 RBC 4.04 L (4.30-5.90) m/uL Hgb 7.9 L (13.0-17.5) gm/dL Hct 27.4 L (39.0-53.0) % MCV 67.9 L (80.0-100.0) fL MCH 19.6 L (25.0-35.0) pg MCHC 28.8 L (31.0-37.0) g/dL RDW 16.1 H (11.5-15.5) % HDL Cholesterol 35 L (40-60) mg/dL Assessment and Plan Assessment: Dizziness and lightheadedness possible vertigo versus orthostatic hypotension.. Rule out cardiac arrhythmia Chronic iron deficiency anemia. hemoglobin 8.0--7.9--8.0 FOBT negative. Started on iron supplementation. Microcytic iron deficiency anemia Parkinson's disease Hypertension Hyperlipidemia History of melanoma 30 years ago Osteoarthritis DVT prophylaxis with heparin subcu Plan: Patient will be continued on telemetry monitoring. Monitor H&H. 2-D echocardiogram and carotid duplex was ordered. FOBT is negative. Continue with iron supplementation. Monitor H&H.. We'll rule out cardiac etiology for dizziness. Blood Pressure and heart rate is not elevated. Metoprolol has been discontinued. Further recommendations based on the clinical course. Discussed with his at bedside in detail. Time with Patient: Greater than 30
[2019-10-18 07:02] LABS: Anisocytosis Slight; Basophils # (A) 0.1 k/uL (0-0.2); Basophils % (A) 2 %; Eosinophils # (A) 0.2 k/uL (0-0.7); Eosinophils % (A) 2 %; HCT 30.2 % (39.0-53.0); HGB 8.8 gm/dL (13.0-17.5); Hypochromasia Marked; Lymphocytes # (A) 1.1 k/uL (1.0-4.8); Lymphocytes % (A) 13 %; MCH 19.9 pg (25.0-35.0); MCV 68.5 fL (80.0-100.0); Mean Platelet Volume 7.9; Microcytosis Marked; Monocytes # (A) 0.6 k/uL (0-1.0); Monocytes % (A) 7 %; Neutrophils % (A) 74 %; Platelet Count 351 k/uL (150-450); Poikilocytosis Slight; RBC 4.41 m/uL (4.30-5.90); RDW 16.9 % (11.5-15.5); WBC 8.1 k/uL (3.8-10.6)
[2019-10-18] MEDS: HEPARIN SODIUM,PORCINE 5,000 UNIT/ML 1 ML VIAL SQ SCH ×2 (07:08→16:44)
[2019-10-18] MEDS: CARBIDOPA-LEVODOPA 25-100 MG 1 EACH TAB PO SCH ×3 (07:09→16:42)
[2019-10-18 07:25] LABS: African American GFR (CKD) >90 (>60 ml/min/1.73 sqM); Anion Gap 10 mmol/L; Blood Urea Nitrogen 15 mg/dL (9-20); Calcium 9.2 mg/dL (8.4-10.2); Carbon Dioxide 22 mmol/L (22-30); Chloride 106 mmol/L (98-107); Glucose 99 mg/dL (74-99); Non-African American GFR(CKD) 88 (>60 ml/min/1.73 sqM); Potassium 4.3 mmol/L (3.5-5.1); Sodium 138 mmol/L (137-145)
[2019-10-18 07:59] VITALS: PULSE 75
[2019-10-18] MEDS ORDERED: SODIUM FERRIC GLUCONAT-SUCROSE 125 MG in SODIUM CHLORIDE 0.9% 100 ML IVPB ONE (09:00)
[2019-10-18] MEDS: FERROUS SULFATE 325 MG TAB PO SCH (11:20)
[2019-10-18 14:55] VITALS: RESP 16; TEMP 98.4
[2019-10-18 16:10] VITALS: BP 103/61
--- NOTE | 2019-10-22 17:23 | P.DS ---
Providers Date of admission: 10/16/19 14:35 Expected date of discharge: 10/18/19 Attending physician: Rosales Genao Consults: 10/16/19 13:05 Consult Physician Routine Consulting Provider: Thierry Hinton Consult Reason/Comments: Dizziness Do you want consulting provider notified?: Yes Primary care physician: Rosales Genao [facility] Course: Dizziness and lightheadedness possible vertigo , orthostatic hypotension ruled out .cardiac arrhythmia ruled out as per cardiology. Chronic iron deficiency anemia. hemoglobin 8.0--7.9--8.0 FOBT negative. Started on iron supplementation. Microcytic iron deficiency anemia Parkinson's disease Hypertension Hyperlipidemia History of melanoma 30 years ago Osteoarthritis Hospital course this a 69-year-old gentleman with history of Parkinson's disease, hypertension presented to the ER with dizziness, lightheadedness, possible vertigo, with complaints of chronic fatigue over the last few months. Negative for orthostatic hypotension. Brain CT reported nonacute. EKG reported sinus rhythm with first-degree AV block. Troponins were negative. Carotid Doppler reported no hemodynamically significant stenosis. Please refer to consults, H&P and progress notes for specifics. Significant clinical improvement Cleared by cardiology for discharge. Patient is being discharged home in a stable condition with guarded prognosis. EXAMINATION: Patient is lying in the bed comfortably, no acute distress, awake alert and oriented. CHEST EXAMINATION: Trachea is central. Symmetrical expansion. Lung negro clear to auscultation and percussion. CARDIAC: Normal S1, S2 with no gallops. No murmurs ABDOMEN: Soft. Bowel sounds normal. No organomegaly. Extremities: reveal no edema. No clubbing or cyanosis, positive pulses. Neurologically awake, alert, oriented x3 . Parkinson's tremors.. No focal deficits noted Skin: No rash Psychiatric: Coperative. Musculoskeletal: No joint swelling or deformity. Normal range of motion. The impression and plan of care has been dictated as directed. : I performed a history and examination of this patient, discussed the same with the dictator. I agree with the dictator's note ,documented as a scribe. Any additional findings or plans will be noted. Patient Condition at Discharge: Stable Plan - Discharge Summary Discharge Rx Participant: No New Discharge Prescriptions: New Ferrous Sulfate [Iron (65 MG Elemental)] 325 mg PO W/LUNCH #30 tab Continue Carbidopa-Levodopa 25-100 mg [Sinemet 25-100 mg] 2 tab PO BID@1200,1600 clonazePAM [KlonoPIN] 1 mg PO HS Simvastatin [Zocor] 40 mg PO HS Carbidopa-Levodopa 25-100 mg [Sinemet 25-100 mg] 3 tab PO BID@799,1999 Discontinued Docusate [Colace] 100 mg PO DAILY No Action Sulfamethoxazole/Trimethoprim [Bactrim DS 800-160 mg] 1 tab PO BID Discharge Medication List Carbidopa-Levodopa 25-100 mg [Sinemet 25-100 mg] 2 tab PO BID@1200,1600 06/29/18 [History] Carbidopa-Levodopa 25-100 mg [Sinemet 25-100 mg] 3 tab PO BID@0800,199910/14/19 [History] Simvastatin [Zocor] 40 mg PO HS 10/14/19 [History] clonazePAM [KlonoPIN] 1 mg PO HS 10/14/19 [History] Ferrous Sulfate [Iron (65 MG Elemental)] 325 mg PO W/LUNCH #30 tab 10/18/19 [Rx] Sulfamethoxazole/Trimethoprim [Bactrim DS 800-160 mg] 1 tab PO BID 10/22/19 [History] Follow up Appointment(s)/Referral(s): Thierry Hinton MD [STAFF PHYSICIAN] - 10/26/19 9:30 am [facility] and [facility] With Jacque) Rosales Genao DO [Primary Care Provider] - 10/21/19 11:30 am Anoop Thomson MD [STAFF PHYSICIAN] - 11/12/19 9:00 am Ambulatory/Diagnostic Orders: Complete Blood Count w/diff [LAB.AMB] Time Frame: 3 Days, Location: None Selected Patient Instructions/Handouts: Anemia (DC) Activity/Diet/Wound Care/Special Instructions: Metoprolol discontinued as per cardiology. Docusate available over the counter. Meclizine available over the counter. Discharge Disposition: HOME SELF-CARE
--- NOTE | 2019-10-29 08:09 | ECHOF ---
Referral Reason:Dizziness MEASUREMENTS -------- HEIGHT: 188.0 cm WEIGHT: 102.1 kg BP: 108/66 IVSd: 1.3 cm (0.6 - 1.1) LVIDd: 4.0 cm (3.9 - 5.3) LVPWd: 1.3 cm (0.6 - 1.1) IVSs: 1.6 cm LVIDs: 2.6 cm LVPWs: 1.8 cm LA Diam: 3.1 cm (2.7 - 3.8) RVIDd: 3.1 cm (< 3.3) LAESV Index (A-L): 26.17 ml/m Ao Diam: 3.4 cm (2.0 - 3.7) AV Cusp: 2.2 cm (1.5 - 2.6) EPSS: 0.6 cm MV E Darren: 0.73 m/s MV DecT: 323 ms MV A Darren: 0.97 m/s MV E/A Ratio: 0.76 MV EF SLOPE: 59.73 mm/s (70 - 150) MV EXCURSION: 14.58 mm (> 18.000) TAPSE: 23.90 mm FINDINGS -------- Sinus rhythm. This was a technically difficult study with suboptimal apical views. The left ventricular size is normal. There is mild concentric left ventricular hypertrophy. Overa ll left ventricular systolic function is normal with, an EF between 60 - 65 %. The right ventricle is normal in size. Normal LA size by volume 22+/-6 ml/m2. The right atrium is normal in size. 3 ml of Lumason was utilized for enhancement of images. Interatrial and interventricular septum intact. The aortic valve is trileaflet and appears structurally normal. Mild mitral annular calcification present. The tricuspid valve appears structurally normal. The pulmonic valve was not well visualized. The aortic root size is normal. IVC Not well visulized. There is no pericardial effusion. CONCLUSIONS -------- 1. Sinus rhythm. 2. This was a technically difficult study with suboptimal apical views. 3. The left ventricular size is normal. 4. There is mild concentric left ventricular hypertrophy. 5. Overall left ventricular systolic function is normal with, an EF between 60 - 65 %. 6. The right ventricle is normal in size. 7. Normal LA size by volume 22+/-6 ml/m2. 8. The right atrium is normal in size. 9. 3 ml of Lumason was utilized for enhancement of images. 10. Interatrial and interventricular septum intact. 11. The aortic valve is trileaflet and appears structurally normal. 12. Mild mitral annular calcification present. 13. The tricuspid valve appears structurally normal. 14. The pulmonic valve was not well visualized. 15. The aortic root size is normal. 16. IVC Not well visulized. 17. There is no pericardial effusion. CANNONEER: Jessica Lopez RDCS
== END 2019-10-18 18:42 | disposition home or self-care (01) | DRG 812 ==
LOC: EC 11:01 → 4SSUR 15:12 → OBSVTOIN 10-16 14:35
PROVIDERS: ADMIT Family Medicine; ATTEND Family Medicine
DX: D50.9 Iron deficiency anemia, unspecified (principal); E78.5 Hyperlipidemia, unspecified; G20 Parkinson's disease; I10 Essential (primary) hypertension; I44.0 Atrioventricular block, first degree; M19.90 Unspecified osteoarthritis, unspecified site; R53.82 Chronic fatigue, unspecified; Z79.82 Long term (current) use of aspirin; Z79.899 Other long term (current) drug therapy; Z85.820 Personal history of malignant melanoma of skin; H40.9 Unspecified glaucoma; Z98.49 Cataract extraction status, unspecified eye
CPT/HCPCS: 36415; 70450; 71045; 80048; 80053; 80061; 81003; 82272; 82728; 83540; 83550; 83735; 84443; 84484; 85025; 85027; 93005; 93306; 93880; 96374; 99285

== ENCOUNTER 2019-10-22 11:42 | Inpatient (IN) | payer MEDICARE, OTHER ==
[2019-10-22] MEDS ORDERED: MORPHINE SULFATE 4 MG/ML SYRINGE IV STA (12:14)
--- NOTE | 2019-10-22 12:19 | ED ---
General Adult HPI - General Chief complaint: Skin/Abscess/Foreign Body Stated complaint: arm infection Time Seen by Provider: 10/22/19 12:04 Source: patient, family, RN notes reviewed Mode of arrival: wheelchair Limitations: no limitations - History of Present Illness Initial comments: Patient is a pleasant 69-year-old male presenting to the emergency department with concerns for infection of the right arm. Patient was in the hospital for dizziness and released on Friday. Over the past 4 days patient has had increased discomfort and swelling and some redness of the right arm. This is mostly of the area where her IV was placed. No fevers. No history of similar symptoms previously. Patient did see his doctor yesterday and given antibiotic injection as well as Bactrim. Symptoms have somewhat worsened even since that time. - Related Data Home Medications Medication Instructions Recorded Confirmed Carbidopa-Levodopa 25-100 mg 2 tab PO BID@1200,1600 06/29/18 10/14/19 [Sinemet 25-100 mg] Carbidopa-Levodopa 25-100 mg 2 tab PO BID@0800,2000 10/14/19 10/14/19 [Sinemet 25-100 mg] Sennosides [Senokot] 8.6 mg PO HS 10/14/19 10/14/19 Simvastatin [Zocor] 40 mg PO HS 10/14/19 10/14/19 clonazePAM [KlonoPIN] 1 mg PO HS 10/14/19 10/14/19 Previous Rx's Medication Instructions Recorded Docusate [Colace] 100 mg PO BID #0 10/18/19 Ferrous Sulfate [Iron (65 MG 325 mg PO W/LUNCH #30 tab 10/18/19 Elemental)] Meclizine [Antivert] 12.5 mg PO BID PRN #0 tab 10/18/19 Allergies Allergy/AdvReac Type Severity Reaction Status Date / Time No Known Allergies Allergy Verified 10/22/19 13:35 Review of Systems ROS Statement: Those systems with pertinent positive or pertinent negative responses have been documented in the HPI. ROS Other: All systems not noted in ROS Statement are negative. Constitutional: Denies: fever Eyes: Denies: eye pain ENT: Denies: ear pain Respiratory: Denies: cough Cardiovascular: Denies: chest pain Endocrine: Denies: fatigue Gastrointestinal: Denies: abdominal pain Genitourinary: Denies: dysuria Musculoskeletal: Denies: back pain Skin: Reports: rash Past Medical History Past Medical History: Cancer, Eye Disorder, Hyperlipidemia, Hypertension, Neurologic Disorder Additional Past Medical History / Comment(s): melanoma 30 yrs ago, hand tremors, Parkinson's, glaucoma History of Any Multi-Drug Resistant Organisms: None Reported Past Surgical History: Hernia Repair, Orthopedic Surgery Additional Past Surgical History / Comment(s): colonoscopy, ORIF left ankle, kelivn rotator cuff repair, arthroscopy knee, cataracts removed Past Anesthesia/Blood Transfusion Reactions: No Reported Reaction Past Psychological History: No Psychological Hx Reported Smoking Status: Never smoker Past Alcohol Use History: None Reported Past Drug Use History: None Reported - Past Family History Father Family Medical History: Cancer General Exam Limitations: no limitations General appearance: alert, in no apparent distress Head exam: Present: normocephalic Eye exam: Present: normal appearance, PERRL ENT exam: Present: normal oropharynx Neck exam: Present: normal inspection Respiratory exam: Present: normal lung sounds bilaterally Cardiovascular Exam: Present: tachycardia GI/Abdominal exam: Present: soft. Absent: tenderness Extremities exam: Present: other (Right upper extremity with moderate diffuse swelling, more so near the antecubital fossa with associated mild induration and erythema. There is moderate tenderness. No firmness of the deep structures of the arm. No discoloration of the fingers. No paresthesias. Radial pulse +2.) Neurological exam: Present: alert Psychiatric exam: Present: normal affect, normal mood Skin exam: Present: erythema Course Vital Signs 10/22/19 11:45 Temperature 98.0 F Pulse Rate 110 H Respiratory 20 Rate Blood Pressure 143/77 O2 Sat by Pulse 97 Oximetry - Reevaluation(s) Reevaluation #1: 10/22/19 12:52 Patient does meet sepsis criteria diagnosed at 1250 pm. Blood culture and lactic acid have been ordered. IV antibiotics will be ordered. Medical Decision Making - Medical Decision Making Case was discussed with Dr. Genao who is familiar with this patient and will admit. He is agreeable with Rocephin and vancomycin and consult with Dr. Gonzalez. - Lab Data Result diagrams: 10/22/19 12:27 10/22/19 12:27 Lab Results 10/22/19 10/22/19 10/22/19 Range/Units 12:27 12:27 12:27 WBC 10.3 (3.8-10.6) k/uL RBC 4.48 (4.30-5.90) m/uL Hgb 9.1 L (13.0-17.5) gm/dL Hct 30.5 L (39.0-53.0) % MCV 68.2 L (80.0-100.0) fL MCH 20.3 L (25.0-35.0) pg MCHC 29.7 L (31.0-37.0) g/dL RDW 21.0 H (11.5-15.5) % Plt Count 295 (150-450) k/uL Neutrophils % 87 % Lymphocytes % 5 % Monocytes % 6 % Eosinophils % 1 % Basophils % 0 % Neutrophils # 9.0 H (1.3-7.7) k/uL Lymphocytes # 0.5 L (1.0-4.8) k/uL Monocytes # 0.6 (0-1.0) k/uL Eosinophils # 0.1 (0-0.7) k/uL Basophils # 0.0 (0-0.2) k/uL Hypochromasia Marked Poikilocytosis Slight Anisocytosis Moderate Microcytosis Marked PT (9.0-12.0) sec INR (<1.2) APTT (22.0-30.0) sec Sodium 131 L (137-145) mmol/L Potassium 4.1 (3.5-5.1) mmol/L Chloride 98 (98-107) mmol/L Carbon Dioxide 21 L (22-30) mmol/L Anion Gap 12 mmol/L BUN 17 (9-20) mg/dL Creatinine 1.01 (0.66-1.25) mg/dL Est GFR (CKD-EPI)AfAm 87 (>60 ml/min/1.73 sqM) Est GFR (CKD-EPI)NonAf 75 (>60 ml/min/1.73 sqM) Glucose 133 H (74-99) mg/dL Plasma Lactic Acid Chris 2.2 H* (0.7-2.0) mmol/L Calcium 8.6 (8.4-10.2) mg/dL Total Bilirubin 1.5 H (0.2-1.3) mg/dL AST 48 (17-59) U/L ALT 11 (4-49) U/L Alkaline Phosphatase 127 H (38-126) U/L Total Protein 7.2 (6.3-8.2) g/dL Albumin 3.9 (3.5-5.0) g/dL 10/22/19 Range/Units 12:27 WBC (3.8-10.6) k/uL RBC (4.30-5.90) m/uL Hgb (13.0-17.5) gm/dL Hct (39.0-53.0) % MCV (80.0-100.0) fL MCH (25.0-35.0) pg MCHC (31.0-37.0) g/dL RDW (11.5-15.5) % Plt Count (150-450) k/uL Neutrophils % % Lymphocytes % % Monocytes % % Eosinophils % % Basophils % % Neutrophils # (1.3-7.7) k/uL Lymphocytes # (1.0-4.8) k/uL Monocytes # (0-1.0) k/uL Eosinophils # (0-0.7) k/uL Basophils # (0-0.2) k/uL Hypochromasia Poikilocytosis Anisocytosis Microcytosis PT 9.9 (9.0-12.0) sec INR 1.0 (<1.2) APTT 23.9 (22.0-30.0) sec Sodium (137-145) mmol/L Potassium (3.5-5.1) mmol/L Chloride (98-107) mmol/L Carbon Dioxide (22-30) mmol/L Anion Gap mmol/L BUN (9-20) mg/dL Creatinine (0.66-1.25) mg/dL Est GFR (CKD-EPI)AfAm (>60 ml/min/1.73 sqM) Est GFR (CKD-EPI)NonAf (>60 ml/min/1.73 sqM) Glucose (74-99) mg/dL Plasma Lactic Acid Chris (0.7-2.0) mmol/L Calcium (8.4-10.2) mg/dL Total Bilirubin (0.2-1.3) mg/dL AST (17-59) U/L ALT (4-49) U/L Alkaline Phosphatase (38-126) U/L Total Protein (6.3-8.2) g/dL Albumin (3.5-5.0) g/dL - Radiology Data Radiology results: report reviewed (Upper extremity ultrasound positive for DVT) Critical Care Time Critical Care Time: Yes Total Critical Care Time: 31 Disposition Clinical Impression: Right arm cellulitis, Sepsis, Deep vein thrombosis (DVT) of right upper extremity Disposition: ADMITTED IP TO THIS HOSP Is patient prescribed a controlled substance at d/c from ED?: No Decision Time: 12:51
[2019-10-22] MEDS: SODIUM CHLORIDE 0.9% 1,000 ML IV SCH ×2 (12:31→21:39)
[2019-10-22 12:41] LABS: Anisocytosis Moderate; Basophils % (A) 0 %; Eosinophils # (A) 0.1 k/uL (0-0.7); Eosinophils % (A) 1 %; HCT 30.5 % (39.0-53.0); HGB 9.1 gm/dL (13.0-17.5); Hypochromasia Marked; Lymphocytes # (A) 0.5 k/uL (1.0-4.8); Lymphocytes % (A) 5 %; MCH 20.3 pg (25.0-35.0); MCHC 29.7 g/dL (31.0-37.0); MCV 68.2 fL (80.0-100.0); Mean Platelet Volume 6.9; Microcytosis Marked; Monocytes # (A) 0.6 k/uL (0-1.0); Monocytes % (A) 6 %; Neutrophils % (A) 87 %; Platelet Count 295 k/uL (150-450); Poikilocytosis Slight; RBC 4.48 m/uL (4.30-5.90); WBC 10.3 k/uL (3.8-10.6)
[2019-10-22 12:48] LABS: Albumin 3.9 g/dL (3.5-5.0); Calcium 8.6 mg/dL (8.4-10.2); Potassium 4.1 mmol/L (3.5-5.1); Total Bilirubin 1.5 mg/dL (0.2-1.3); Total Protein 7.2 g/dL (6.3-8.2)
[2019-10-22 12:50] LABS: Partial Thromboplastin Time 23.9 sec (22.0-30.0); Prothrombin Time 9.9 sec (9.0-12.0)
[2019-10-22] MEDS ORDERED: cefTRIAXone IN SWFI 1,000 MG/10 ML SYRINGE IVP STA (12:53)
[2019-10-22] MEDS ORDERED: MORPHINE SULFATE 4 MG/ML SYRINGE IV PRN (13:10)
[2019-10-22] MEDS ORDERED: NALOXONE 0.4 MG/ML 1 ML VIAL IV PRN (13:10)
[2019-10-22] MEDS ORDERED: VANCOMYCIN IV PER PHARMACY 1 EACH MISC MISCELLANE PRN (13:10)
--- NOTE | 2019-10-22 13:20 | US ---
EXAMINATION TYPE: US venous doppler duplex UE RT DATE OF EXAM: 10/22/2019 COMPARISON: NONE CLINICAL HISTORY: Pain and swelling. Pt having right arm redness and severe swelling/ pt is status po st IV iron infusion 4 days ago within right arm SIDE PERFORMED: Right Visualized portions of the right internal jugular vein are patent. Axillary vein and subclavian vein visualized portions are unremarkable. Basilic vein is normal. Within the antecubital vein on the righ t there is low-level internal echoes with lack of color flow and lack of compressibility extending to the cephalic vein. Right Arm: + acute thrombus within right cephalic from right shoulder to right forearm, and right bra chial within antecubital fossa IMPRESSION: DVT, SVT.
[2019-10-22] MEDS ORDERED: VANCOMYCIN 1,750 MG in SODIUM CHLORIDE 0.9% 500 ML 500 ML IVPB STA (13:31)
[2019-10-22] MEDS ORDERED: HEPARIN SODIUM,PORCINE 10,000 UNIT/ML 1 ML VIAL IV ONE (13:53)
[2019-10-22] MEDS ORDERED: HEPARIN SODIUM,PORCINE 5,000 UNIT/ML 1 ML VIAL IV PRN (13:53)
[2019-10-22] MEDS: HEPARIN SOD,PORK IN 0.45% NACL 25,000 UNIT in 0.45% NACL 1 250ML.BAG IV SCH (14:20)
--- NOTE | 2019-10-22 15:34 | P.GSCN ---
History of Present Illness Consult date: 10/22/19 History of present illness: The patient is a pleasant 69-year-old male who resented to the emergency department with concerns for right arm pain, swelling, and redness. The patient states the pain and redness began on Friday after he had been discharged from the hospital for anemia. Patient states he had an IV in the right arm and was receiving IV iron and IV fluids. The patient states he has no significant medical history other than Parkinson's disorder. Patient denies any history of any DVTs or pulmonary embolisms. Patient denies any history of hi mself or family with any clotting disorders. The patient denies any shortness of breath or chest pain. Patient is able to move his right upper extremity however it is painful. Patient denies any fever, chills, or body aches. Patient states he has chronic mild swelling in the left lower extremity ankle and foot due to a history of a broken ankle. The patient denies any pain in the lower extremity or redness. The patient went to his primary care physician yesterday and was given an attic injection in the office yesterday, her symptoms had worsened. Review of Systems 10 point review of systems was completed, all pertinent positives and negatives as documented in the HPI. Past Medical History Past Medical History: Cancer, Eye Disorder, GI Bleed, Hyperlipidemia, Hypertension, Neurologic Disorder, Osteoarthritis (OA) Additional Past Medical History / Comment(s): Melanoma removed from back 30 yrs ago, bilateral glaucoma, parkinson's disease, hand tremors, chronic iron anemia, diverticular disease, rectal bleed in past. History of Any Multi-Drug Resistant Organisms: None Reported Past Surgical History: Hernia Repair, Orthopedic Surgery Additional Past Surgical History / Comment(s): Bilateral inguinal hernia repairs , bilateral rotator cuff surgery, ORIF L ankle, L knee arthroscopy, colonoscopies, bilateral cataract removals/lens implants Past Anesthesia/Blood Transfusion Reactions: No Reported Reaction Past Psychological History: No Psychological Hx Reported Additional Psychological History / Comment(s): Pt resides with his spouse. He has been using a walker since recent discharge from hospital. Smoking Status: Never smoker Past Alcohol Use History: None Reported Past Drug Use History: None Reported - Past Family History Father Family Medical History: Cancer Additional Family Medical History / Comment(s): Lung cancer. Father was a smoker. Mother Family Medical History: Neurologic Disorder Additional Family Medical History / Comment(s): Polio Medications and Allergies Home Medications Medication Instructions Recorded Confirmed Type Carbidopa-Levodopa 25-100 mg 2 tab PO BID@1200,1600 06/29/18 10/22/19 History [Sinemet 25-100 mg] Carbidopa-Levodopa 25-100 mg 3 tab PO BID@0800,2000 10/14/19 10/22/19 History [Sinemet 25-100 mg] Simvastatin [Zocor] 40 mg PO HS 10/14/19 10/22/19 History clonazePAM [KlonoPIN] 1 mg PO HS 10/14/19 10/22/19 History Ferrous Sulfate [Iron (65 MG 325 mg PO W/LUNCH #30 tab 10/18/19 10/22/19 Rx Elemental)] Sulfamethoxazole/Trimethoprim 1 tab PO BID 10/22/19 10/22/19 History [Bactrim DS 800-160 mg] Allergies Allergy/AdvReac Type Severity Reaction Status Date / Time No Known Allergies Allergy Verified 10/22/19 13:35 Surgical - Exam Vital Signs Temp Pulse Resp BP Pulse Ox 98.0 F 110 H 20 143/77 97 10/22/19 11:45 10/22/19 11:45 10/22/19 11:45 10/22/19 11:45 10/22/19 11:45 General appearance: The patient is alert, oriented, in no acute distress. HET: Head is normocephalic and atraumatic. Neck: Supple without lymphadenopathy. Trachea midline. No audible carotid bruits. Heart: S1 S2. Regular rate and rhythm. Lungs: No crackles or wheezes are heard. Extremities: Right upper extremity with swelling from fingertips to upper arm, with redness forearm to upper arm. Patient is able to move right hand and fingers. Radial and pedal pulses are 2/4 bilaterally. Left lower extremity with mild edema, no redness, negative Homans. Results Venous Doppler ultrasound of the right upper extremity was reviewed and discussed with Dr. Campbell: The Doppler ultrasound shows right arm acute thrombus within the right cephalic from right shoulder to right forearm, and right br achial within the antecubital fossa. - Labs 10/22/19 12:27 10/22/19 12:27 Abnormal Lab Results - Last 24 Hours (Table) 10/22/19 10/22/1910/22/20 Range/Units 12:27 12:27 12:27 Hgb 9.1 L (13.0-17.5) gm/dL Hct 30.5 L (39.0-53.0) % MCV 68.2 L (80.0-100.0) fL MCH 20.3 L (25.0-35.0) pg MCHC 29.7 L (31.0-37.0) g/dL RDW 21.0 H (11.5-15.5) % Neutrophils # 9.0 H (1.3-7.7) k/uL Lymphocytes # 0.5 L (1.0-4.8) k/uL Sodium 131 L (137-145) mmol/L Carbon Dioxide 21 L (22-30) mmol/L Glucose 133 H (74-99) mg/dL Plasma Lactic Acid Chris 2.2 H* (0.7-2.0) mmol/L Total Bilirubin 1.5 H (0.2-1.3) mg/dL Alkaline Phosphatase 127 H (38-126) U/L Diabetes panel 10/22/19 Range/Units 12: Sodium 131 L (137-145) mmol/L Potassium 4.1 (3.5-5.1) mmol/L Chloride 98 (98-107) mmol/L Carbon Dioxide 21 L (22-30) mmol/L BUN 17 (9-20) mg/dL Creatinine 1.01 (0.66-1.25) mg/dL Glucose 133 H (74-99) mg/dL Calcium 8.6 (8.4-10.2) mg/dL AST 48 (17-59) U/L ALT 11 (4-49) U/L Alkaline Phosphatase 127 H (38-126) U/L Total Protein 7.2 (6.3-8.2) g/dL Albumin 3.9 (3.5-5.0) g/dL Calcium panel 10/22/19 Range/Units 12: Calcium 8.6 (8.4-10.2) mg/dL Albumin 3.9 (3.5-5.0) g/dL Pituitary panel 10/22/19 Range/Units 12: Sodium 131 L (137-145) mmol/L Potassium 4.1 (3.5-5.1) mmol/L Chloride 98 (98-107) mmol/L Carbon Dioxide 21 L (22-30) mmol/L BUN 17 (9-20) mg/dL Creatinine 1.01 (0.66-1.25) mg/dL Glucose 133 H (74-99) mg/dL Calcium 8.6 (8.4-10.2) mg/dL Adrenal panel 10/22/19 Range/Units 12:27 Sodium 131 L (137-145) mmol/L Potassium 4.1 (3.5-5.1) mmol/L Chloride 98 (98-107) mmol/L Carbon Dioxide 21 L (22-30) mmol/L BUN 17 (9-20) mg/dL Creatinine 1.01 (0.66-1.25) mg/dL Glucose 133 H (74-99) mg/dL Calcium 8.6 (8.4-10.2) mg/dL Total Bilirubin 1.5 H (0.2-1.3) mg/dL AST 48 (17-59) U/L ALT 11 (4-49) U/L Alkaline Phosphatase 127 H (38-126) U/L Total Protein 7.2 (6.3-8.2) g/dL Albumin 3.9 (3.5-5.0) g/dL Assessment and Plan Assessment: #1 Right upper extremity acute thrombus within the right cephalic vein from the right shoulder to the right forearm, and right brachial within the antecubital fossa #2 right upper extremity pain Plan: Discussed the patient and reviewed the venous Doppler ultrasound of the right upper extremity with Dr. Campbell. We'll continue with the heparin drip as ordered. No vascular surgical intervention is indicated. Keep right upper extremity elevated on a pillow, may apply a modified TORIE hose to the right upper extremity. Thank you for this consultation and allowing us to participate in the plan of care this patient during his hospital stay. The above dictated assessment and findings were discussed with Dr. Campbell. The impression and plan of care have been directed as dictated.
[2019-10-22 16:44] LABS: Glucose,Whole Blood 150 mg/dL (75-99)
--- NOTE | 2019-10-22 17:50 | P.HPIM ---
History of Present Illness H&P Date: 10/22/19 Patient is a pleasant 69-year-old male presenting to the emergency department with concerns for infection of the right arm. Patient was in the hospital for dizziness and released on Friday. Over the past 4 days patient has had increased discomfort and swelling and some redness of the right arm. This is mostly of the area where her IV was placed. No fevers. No history of similar symptoms previously. He did see me yesterday in the office for appeared to be a antecubital fossa localized cellulitis with some erythema and edema. However progress today and have instructed him to come to the ER if any swelling or persistent redness. Past Medical History Past Medical History: Cancer, Eye Disorder, GI Bleed, Hyperlipidemia, Hypertension, Neurologic Disorder, Osteoarthritis (OA) Additional Past Medical History / Comment(s): Melanoma removed from back 30 yrs ago, bilateral glaucoma, parkinson's disease, hand tremors, chronic iron anemia, diverticular disease, rectal bleed in past. History of Any Multi-Drug Resistant Organisms: None Reported Past Surgical History: Hernia Repair, Orthopedic Surgery Additional Past Surgical History / Comment(s): Bilateral inguinal hernia repairs, bilateral rotator cuff surgery, ORIF L ankle, L knee arthroscopy, c olonoscopies, bilateral cataract removals/lens implants Past Anesthesia/Blood Transfusion Reactions: No Reported Reaction Past Psychological History: No Psychological Hx Reported Additional Psychological History / Comment(s): Pt resides with his spouse. He has been using a walker since recent discharge from hospital. Smoking Status: Never smoker Past Alcohol Use History: None Reported Past Drug Use History: None Reported - Past Family History Father Family Medical History: Cancer Additional Family Medical History / Comment(s): Lung cancer. Father was a smoker. Mother Family Medical History: Neurologic Disorder Additional Family Medical History / Comment(s): Polio Medications and Allergies Home Medications Medication Instructions Recorded Confirmed Type Carbidopa-Levodopa 25-100 mg 2 tab PO BID@1200,1600 06/29/18 10/22/19 History [Sinemet 25-100 mg] Carbidopa-Levodopa 25-100 mg 3 tab PO BID@0800,2000 10/14/19 10/22/19 History [Sinemet 25-100 mg] Simvastatin [Zocor] 40 mg PO HS 10/14/19 10/22/19 History clonazePAM [KlonoPIN] 1 mg PO HS 10/14/19 10/22/19 History Ferrous Sulfate [Iron (65 MG 325 mg PO W/LUNCH #30 tab 10/18/19 10/22/19 Rx Elemental)] Sulfamethoxazole/Trimethoprim 1 tab PO BID 10/22/19 10/22/19 History [Bactrim DS 800-160 mg] Allergies Allergy/AdvReac Type Severity Reaction Status Date / Time No Known Allergies Allergy Verified 10/22/19 13:35 Physical Exam Osteopathic Statement: *. No significant issues noted on an osteopathic structural exam other than those noted in the History and Physical/Consult. Vitals: Vital Signs Temp Pulse Resp BP Pulse Ox 10/22/19 14:29 92 16 95 10/22/19 11:45 98.0 F 110 H 20 143/77 97 Intake and Output 10/22/19 10/22/19 10/22/19 06:59 14:59 22:59 Other: Voiding Method Toilet Urinal # Voids 0 Weight 102.058 kg GENERAL: This is a -69-year-old in no apparent distress at the time of examination. Pleasant and cooperative. HEENT: Head is atraumatic, normocephalic. Pupils are equal, round, and reactive to light. Sclerae anicteric. Conjunctivae are clear. Mucus membranes of the mouth are moist. Neck is supple. RESPIRATORY: Clear to auscultation. No wheezes, rales, or rhonchi. No use of accessory muscles. Patient maintaining oxygen saturation greater than 92%. No chest wall tenderness is noted on palpation or with deep breathing. CARDIOVASCULAR: Regular rate and rhythm. S1 and S2 noted. No systolic or diastolic murmur auscultated. No JVD noted. No S3 or S4 noted. GASTROINTESTINAL: No distention noted. Abdomen soft and round. Normal active bowel sounds auscultated x 4 quadrants. No pain or tenderness noted upon palpation. INTEGUMENTARY: cellulitis noted right arm antecubital fossa. With marked edema of the right upper extremity. Pulses are intact to the radial pulse bilateral. EXTREMITIES: 2+ peripheral pulses. No calf tenderness noted. NEUROLOGIC: Cranial nerves II-XII intact. Parkinson's tremor is noted with signs of Parkinson's. PSYCHIATRIC: Awake, alert, and oriented X 3. Appropriate affect. Intact judgement and insight. Results CBC & Chem 7: 01/31/20 12:27 10/22/19 12:27 Labs: Abnormal Lab Results - Last 24 Hours (Table) 10/22/19 10/22/19 10/22/19 Range/Units 12:27 12:27 12:27 Hgb 9.1 L (13.0-17.5) gm/dL Hct 30.5 L (39.0-53.0) % MCV 68.2 L (80.0-100.0) fL MCH 20.3 L (25.0-35.0) pg MCHC 29.7 L (31.0-37.0) g/dL RDW 21.0 H (11.5-15.5) % Neutrophils # 9.0 H (1.3-7.7) k/uL Lymphocytes # 0.5 L (1.0-4.8) k/uL Sodium 131 L (137-145) mmol/L Carbon Dioxide 21 L (22-30) mmol/L Glucose 133 H (74-99) mg/dL POC Glucose (mg/dL) (75-99) mg/dL Plasma Lactic Acid Chris 2.2 H* (0.7-2.0) mmol/L Total Bilirubin 1.5 H (0.2-1.3) mg/dL Alkaline Phosphatase 127 H (38-126) U/L 10/22/19 Range/Units 16:40 Hgb (13.0-17.5) gm/dL Hct (39.0-53.0) % MCV (80.0-100.0) fL MCH (25.0-35.0) pg MCHC (31.0-37.0) g/dL RDW (11.5-15.5) % Neutrophils # (1.3-7.7) k/uL Lymphocytes # (1.0-4.8) k/uL Sodium (137-145) mmol/L Carbon Dioxide (22-30) mmol/L Glucose (74-99) mg/dL POC Glucose (mg/dL) 150 H (75-99) mg/dL Plasma Lactic Acid Chris (0.7-2.0) mmol/L Total Bilirubin (0.2-1.3) mg/dL Alkaline Phosphatase (38-126) U/L Thrombosis Risk Factor Assmnt - Choose All That Apply Any of the Below Risk Factors Present?: Yes Each Factor Represents 1 point: Obesity (BMI >25) Other Risk Factors: Yes Each Risk Factor Represents 2 Points: Age 61-74 years, Malignancy Other congenital or acquired thrombophilia - If yes, enter type in comment: No Thrombosis Risk Factor Assessment Total Risk Factor Score: 5 Thrombosis Risk Factor Assessment Level: High Risk Assessment and Plan (1) Parkinsons disease Current Visit: Yes Status: Acute Code(s): G20 - PARKINSON'S DISEASE SNOMED Code(s): 97064957 (2) Deep vein thrombosis (DVT) of right upper extremity Current Visit: Yes Status: Acute Code(s): I82.621 - ACUTE EMBOLISM AND THR OMBOSIS OF DEEP VEINS OF R UP EXTREM SNOMED Code(s): 425671498 (3) Right arm cellulitis Current Visit: Yes Status: Acute Code(s): L03.113 - CELLULITIS OF RIGHT UPPER LIMB SNOMED Code(s): 183989391 (4) Anemia, iron deficiency Current Visit: Yes Status: Acute Code(s): D50.9 - IRON DEFICIENCY ANEMIA, UNSPECIFIED SNOMED Code(s): 46222975 (5) Hyperlipidemia Current Visit: Yes Status: Acute Code(s): E78.5 - HYPERLIPIDEMIA, UNSPECI FIED SNOMED Code(s): 61135752 Plan: In the patient to the general medical floor with IV antibiotics IV heparin fluid hydration. Consultation by infectious disease and vascular surgery for any possible intervention. [facility] hospitalist group is on-call starting today at 5:00 PM.
[2019-10-23] MEDS ORDERED: VANCOMYCIN 1,750 MG in SODIUM CHLORIDE 0.9% 500 ML 500 ML IVPB SCH ×2
--- NOTE | 2019-10-23 00:09 | CONS ---
CONSULTATION DATE OF SERVICE: 10/22/2019 REASON FOR CONSULTATION: Right arm cellulitis. HISTORY OF PRESENT ILLNESS: The patient is a 69-year-old male who was recently admitted to this facility for dizziness. The patient has been discharged home on October 18. The patient apparently did have an IV on the right arm and the patient subsequently developing swelling and redness of the right antecubital fossa to the upper arm area that has progressively gotten worse. Patient complaining of some dull aching to sharp pain intensity about 6 out of 10 and no radiation. Did have some chills but denies any high-grade fever. The patient was seen in the office by the PCP yesterday. Apparently the patient was given a short course of IV antibiotic and started on Bactrim DS with instructions if any further worsening of right arm swelling advised to go to the ER. This morning when the patient woke up he did have significant worsening of the swelling and redness to the right arm along with dull aching pain for which the patient presented to the [facility] ER. The patient was evaluated by the ER physician. On arrival to the ER, the patient was afebrile. Subsequently did have a low-grade fever of 99.7. His white count was normal. The patient did have a Doppler ultrasound of the right arm which did show acute thrombosis with the right cephalic vein from shoulder to the right forearm and right brachial and within the antecubital fossa. The patient has been admitted to the hospital. He was started on vancomycin and Rocephin along with IV heparin. Infectious Disease was consulted for further recommendations regarding antibiotic therapy. REVIEW OF SYSTEMS: Positive points have been mentioned in HPI. Rest of systems are negative. PAST MEDICAL HISTORY: Hypertension, hyperlipidemia osteoarthritis, melanoma, Parkinson disease, diverticular disease and previous history of GI bleed. PAST SURGICAL HISTORY: Bilateral inguinal hernia repair, bilateral rotator cuff surgery, ORIF left ankle, left knee arthroscopy, colonoscopy. SOCIAL HISTORY: The patient denies any smoking, drinking or drug use. FAMILY HISTORY: Father with history of lung cancer. Mother with history of polyp. ALLERGIES: No known drug allergies. MEDICATIONS: Medications include the patient is currently on Rocephin, Morphine sulfate, Narcan. PHYSICAL EXAMINATION: Blood pressure 124/78 with a pulse of 97, temperature 98.7. He is 92% on room air. General description is an elderly male lying in bed in no distress. No tachypnea or accessory muscles of respiration use. HEENT: Examination shows no pallor or scleral icterus. Oral mucosa membranes dry. No pharyngeal erythema or thrush. Neck: Trachea central. No thyromegaly. Lungs unlabored breathing, clear to auscultation anteriorly. No wheeze or crackles. Heart S1, S2. Regular rate and rhythm. ABDOMEN: Soft. No tenderness. No guarding and no rigidity. EXTREMITIES are no edema of the feet. SKIN examination: No rash or mass palpable. Right upper arm is swollen and red, warm to touch. No induration or any drainage. Neurologically: The patient is awake, alert, oriented times three. Mood and affect normal. LABS: Hemoglobin is 9.1 with white count 10.3, BUN of 17, creatinine 1.01. Lactic acid 2.2. Repeat is 1.1, ultrasound report as mentioned earlier above. DIAGNOSTIC IMPRESSION/PLAN: Patient presented to hospital with extensive pain, swelling, redness of the right arm in this patient who did have IV at that site while he was recently admitted to this facility, likely related to IV site thrombophlebitis and deep vein thrombosis concern for underlying septic not entirely excluded and likely need to cover for MRSA to be the likely pathogen especially with in the hospital. PLAN: 1. Blood cultures x2. 2. As the vancomycin not compatible with IV heparin, patient on IV access. We will switch antibiotic therapy to daptomycin 6 mg/kg while waiting for the culture to finalize. 3. We will follow up on his clinical condition and culture to further adjust medication if needed. Thank you for this consultation. We will follow this patient along with you. MMODL / IJN: [id number] /
[2019-10-23 03:32] LABS: Anisocytosis Moderate; Basophils # (A) 0.1 k/uL (0-0.2); Basophils % (A) 1 %; Eosinophils # (A) 0.2 k/uL (0-0.7); Eosinophils % (A) 2 %; HCT 27.6 % (39.0-53.0); HGB 8.2 gm/dL (13.0-17.5); Hypochromasia Marked; Lymphocytes # (A) 1.1 k/uL (1.0-4.8); Lymphocytes % (A) 11 %; MCH 20.4 pg (25.0-35.0); MCHC 29.6 g/dL (31.0-37.0); MCV 68.9 fL (80.0-100.0); Mean Platelet Volume 7.6; Microcytosis Marked; Monocytes # (A) 0.6 k/uL (0-1.0); Monocytes % (A) 6 %; Neutrophils # (A) 7.6 k/uL (1.3-7.7); Neutrophils % (A) 79 %; Platelet Count 326 k/uL (150-450); Poikilocytosis Slight; RBC 4.01 m/uL (4.30-5.90); WBC 9.7 k/uL (3.8-10.6)
[2019-10-23 03:40] LABS: African American GFR (CKD) >90 (>60 ml/min/1.73 sqM); Non-African American GFR(CKD) 85 (>60 ml/min/1.73 sqM)
[2019-10-23] MEDS: SODIUM CHLORIDE 0.9% 1,000 ML IV SCH ×4 (04:30→20:49)
[2019-10-23] MEDS: HEPARIN SOD,PORK IN 0.45% NACL 25,000 UNIT in 0.45% NACL 1 250ML.BAG IV SCH ×2 (05:45→16:12)
[2019-10-23 09:56] VITALS: BMI 28.8
--- NOTE | 2019-10-23 13:06 | P.PN ---
Subjective Progress Note Date: 10/23/19 Patient seen and examined. Feeling better today. No further issues or complaints. Tolerating heparin without any evidence of bleeding Objective - Vital Signs Vital signs: Vital Signs Temp 97.7 F 10/23/19 05:23 Pulse 84 10/23/19 05:23 Resp 18 10/23/19 07:59 BP 106/62 10/23/19 05:23 Pulse Ox 93 L 10/23/19 05:23 Intake & Output 10/22/19 10/23/19 10/23/19 18:59 06:59 18:59 Intake Total 221.720 271.849 Output Total 300 Balance -78.280 271.849 Weight 102.058 kg 102.058 kg Intake: Intake, IV Titration 221.720 71.849 Amount Heparin Sod,Pork in 0.45% 221.720 71.849 NaCl 25,000 unit In 0.45 % NaCl 1 250ml.bag @ 18 UNITS/KG/HR 18.37 mls/hr IV .[id number] [facility] Rx#: [id number] Oral 200 Output: Urine 300 Other: Voiding Method Toilet Urinal Urinal Urinal # Voids 1 4 - Exam No acute distress. HEENT is normocephalic, atraumatic, excellent motion intact. Heart is regular in rate and rhythm at this time. Lungs are clear bilaterally. Abdomen soft, nontender nondistended. The right upper extremity is warm and indurated at the level of the antecubital fossa. He has a palpable radial pulse. Motor sensory intact. Minimal left lower extremity swelling. Skin otherwise without rashes. Normal mood and affect - Labs CBC & Chem 7: 10/23/19 03:21 10/23/19 03:21 Labs: Abnormal Lab Results - Last 24 Hours (Table) 10/22/19 10/22/19 10/23/19 Range/Units 16:40 19:36 03:21 RBC 4.01 L (4.30-5.90) m/uL Hgb 8.2 L (13.0-17.5) gm/dL Hct 27.6 L (39.0-53.0) % MCV 68.9 L (80.0-100.0) fL MCH 20.4 L (25.0-35.0) pg MCHC 29.6 L (31.0-37.0) g/dL RDW 21.0 H (11.5-15.5) % APTT 112.8 H* (22.0-30.0) sec POC Glucose (mg/dL) 150 H (75-99) mg/dL 10/23/19 10/23/19 Range/Units 03:21 10:48 RBC (4.30-5.90) m/uL Hgb (13.0-17.5) gm/dL Hct (39.0-53.0) % MCV (80.0-100.0) fL MCH (25.0-35.0) pg MCHC (31.0-37.0) g/dL RDW (11.5-15.5) % APTT 108.9 H* 40.5 H (22.0-30.0) sec POC Glucose (mg/dL) (75-99) mg/dL Assessment and Plan Assessment: Right upper extremity DVT Right upper extremity superficial thrombophlebitis Plan: More likely that the patient's right upper extremity findings are related to an infiltrated IV of iron area to continue elevation and compression with either a TORIE hose as a sleeve for an Joe wrap. To maintain on anticoagulation we will switch him to oral anticoagulation today.
[2019-10-23] MEDS: PANTOPRAZOLE 40 MG TABLET PO SCH (16:31)
--- NOTE | 2019-10-23 17:16 | PN ---
PROGRESS NOTE DATE OF SERVICE: 11/12/2019 I am covering for Dr. Genao. This 69-year-old gentleman, admitted with significant swelling of the right arm, had possible superficial thrombophlebitis as well as DVT. Dr. Pena and Dr. Campbell have seen the patient. The patient is on antibiotic as well as on anticoagulation. Dr. Campbell is recommend Eliquis at this time. Past medical history reviewed. REVIEW OF SYSTEMS: CARDIOVASCULAR SYSTEM: No angina, palpitations. RESPIRATORY SYSTEM: As mentioned earlier. GI: As mentioned earlier. : No dysuria or retention. NERVOUS SYSTEM: No numbness, weakness. CURRENT MEDICATIONS: Reviewed. They include: 1. Eliquis 5 mg p.o. b.i.d. 2. Sinemet 25/100 one p.o. b.i.d. 3. Rocephin 2 grams IV daily. 4. Daptomycin 600 mg daily. 5. Heparin. 6. Narcan. PHYSICAL EXAMINATION: Patient is alert, oriented x3. Pulse 76, blood pressure 133/80, respiration 20, temperature 98.6, pulse ox 98% on room air. HEENT: Conjunctivae normal. NECK: No jugular venous distention. CARDIOVASCULAR SYSTEM: S1, S2 muffled. RESPIRATORY SYSTEM: Breath sounds diminished at the bases. A few scattered rhonchi and crackles. ABDOMEN: Soft, non-tender. LEGS: Minimal edema. NERVOUS SYSTEM: No focal deficit. Examination of the right arm shows significant swelling and pain and superficial thrombophlebitis also present. LABS: WBC 9.6, hemoglobin is 8.2. ASSESSMENT: 1. Acute right arm deep venous thrombosis. 2. Acute right arm superficial thrombophlebitis. 3. Parkinson's. 4. Anemia, microcytic, chronic disease. 5. Heparin monitoring. 6. Hyponatremia. 7. Increased bilirubin. 8. History of gastrointestinal bleed. 9. Hypertension. 10.Hyperlipidemia. 11.Melanoma. 12.History of hernia repair. 13.Gait dysfunction. RECOMMENDATIONS AND DISCUSSION: In this 69-year-old gentleman who presented with multiple complex medical issues, we will monitor the patient closely, continue the current medications. Recommend continuing the antibiotics. Closely follow with Infectious Disease and Vascular Surgery. Initiate apixaban per Vascular Surgery. Increase ambulation. Cut down the IV fluids. Guarded prognosis because of multiple complex medical issues. Further recommendations to follow. MMODL / IJN: [id number] / MTDD
--- NOTE | 2019-10-23 17:55 | PN ---
PROGRESS NOTE DATE OF SERVICE: 10/23/2019 REASON FOR FOLLOWUP: Right upper extremity cellulitis and question of septic phlebitis. INTERVAL HISTORY: The patient did have a low-grade fever of 99.7 last night. The patient has been afebrile since then, has been breathing comfortably. Denies having any chest pain or cough. Right arm swelling and redness persist; slightly improved. No nausea, no vomiting. No abdominal pain or diarrhea. PHYSICAL EXAMINATION: Blood pressure 132/82 with a pulse of 76, temperature 98.7. He is 98% on room air. General description is an elderly male up in the room in no distress. RESPIRATORY SYSTEM: Unlabored breathing. Decreased intensity of breath sounds. No wheeze. HEART: S1, S2. Regular rate and rhythm. C ABDOMEN: Soft. No tenderness. Right arm has significant swelling, minimal redness, induration. No drainage. LABS: Hemoglobin 8.1, white count of 9.7. DIAGNOSTIC IMPRESSION AND PLAN: Patient with right arm deep venous thrombosis and concern for septic phlebitis. Clinically, he did have a low-grade fever. Otherwise, does not look toxic. Recommend keeping the patient on antibiotic until at least the cultures are finalized. Continue with supportive care. MMODL / IJN: [id number] /
[2019-10-23] MEDS: clonazePAM 1 MG TAB PO SCH (20:48)
[2019-10-23] MEDS: CARBIDOPA-LEVODOPA 25-100 MG 1 EACH TAB PO SCH (20:48)
[2019-10-23] MEDS: APIXABAN 5 MG TAB PO SCH (20:48)
[2019-10-23] MEDS: ATORVASTATIN 20 MG TAB PO SCH (20:48)
[2019-10-24 07:12] LABS: Anisocytosis Moderate; Basophils # (A) 0.1 k/uL (0-0.2); Basophils % (A) 1 %; Eosinophils # (A) 0.2 k/uL (0-0.7); Eosinophils % (A) 3 %; HCT 26.6 % (39.0-53.0); HGB 7.7 gm/dL (13.0-17.5); Hypochromasia Marked; Lymphocytes # (A) 0.7 k/uL (1.0-4.8); Lymphocytes % (A) 9 %; MCH 20.5 pg (25.0-35.0); MCHC 28.8 g/dL (31.0-37.0); MCV 71.2 fL (80.0-100.0); Mean Platelet Volume 7.3; Microcytosis Marked; Monocytes # (A) 0.5 k/uL (0-1.0); Monocytes % (A) 6 %; Neutrophils # (A) 6.2 k/uL (1.3-7.7); Neutrophils % (A) 80 %; Platelet Count 369 k/uL (150-450); Poikilocytosis Slight; RBC 3.74 m/uL (4.30-5.90); RDW 20.5 % (11.5-15.5); WBC 7.8 k/uL (3.8-10.6)
[2019-10-24 07:18] LABS: African American GFR (CKD) >90 (>60 ml/min/1.73 sqM); Anion Gap 7 mmol/L; Blood Urea Nitrogen 12 mg/dL (9-20); Calcium 7.8 mg/dL (8.4-10.2); Carbon Dioxide 23 mmol/L (22-30); Chloride 105 mmol/L (98-107); Glucose 101 mg/dL (74-99); Non-African American GFR(CKD) >90 (>60 ml/min/1.73 sqM); Potassium 4.3 mmol/L (3.5-5.1); Sodium 135 mmol/L (137-145)
[2019-10-24] MEDS: FERROUS SULFATE 325 MG TAB PO SCH (08:14)
[2019-10-24] MEDS: APIXABAN 5 MG TAB PO SCH ×2 (08:14→19:59)
[2019-10-24] MEDS: PANTOPRAZOLE 40 MG TABLET PO SCH (08:14)
[2019-10-24] MEDS: CARBIDOPA-LEVODOPA 25-100 MG 1 EACH TAB PO SCH ×2 (08:14→19:59)
[2019-10-24] MEDS: SODIUM CHLORIDE 0.9% 1,000 ML IV SCH (14:09)
--- NOTE | 2019-10-24 19:04 | PN ---
PROGRESS NOTE DATE OF SERVICE: 10/24/2019 I am covering for Dr. Genao. This 69-year-old gentleman who was admitted with significant swelling and superficial thrombophlebitis also had DVT of the right arm also. The patient is on heparin, transitioned to Eliquis. Dr. Campbell and Infectious Disease following the patient. Patient is on multiple antibiotics per Dr. Pena. The cultures are reviewed. The patient also complaining of some weakness also. is concerned about taking care of him at home because of the risk of fall because the patient also has significant tremors and Parkinson's also. Dr. Genao is following the patient closely. PAST MEDICAL HISTORY: Reviewed. REVIEW OF SYSTEMS: Cardiovascular System: As mentioned earlier. RESPIRATORY: As mentioned earlier. GI no nausea or vomiting. no dysuria or hematuria. CENTRAL NERVOUS SYSTEM: As mentioned earlier. CURRENT MEDICATIONS: Reviewed and include: 1. Eliquis 5 mg p.o. b.i.d. 2. Lipitor 10 mg q.h.s. 3. Sinemet 25/100 3 tabs b.i.d. 4. Rocephin 2 g IV b.i.d. 5. Klonopin 1 mg q.h.s. 6. Daptomycin 600 mg every 24 hours. 7. Iron sulfate. 8. Heparin. 9. Morphine sulfate. 10.Narcan. 11.Protonix. PHYSICAL EXAM: Patient is alert, oriented x2. Pulse 99, blood pressure 139/60. Respiration 24, temperature 97.9, pulse ox 94% on room air. HEENT: Conjunctivae normal. Neck is no JVD. CARDIOVASCULAR: S1, S2 muffled. RESPIRATORY: Breath sounds diminished in the bases. Scattered rhonchi and crackles. ABDOMEN: Soft, nontender. LEGS: No edema. Exam of the right arm with swelling and tenderness. Significant thrombophlebitis, induration also present. Significant swelling of the whole right arm compared to the left arm. LABS: WBC 7.2, hemoglobin 7.7. Sodium is 135, APTT noted. ASSESSMENT: 1. Acute right arm deep vein thrombosis, on heparin. 2. Heparin monitoring. 3. Acute right arm superficial thrombophlebitis with swelling and possible cellulitis. 4. Parkinson disease. 5. Gait dysfunction. 6. Anemia, microcytic anemia of chronic disease. 7. Hyponatremia. 8. Increased bilirubin. 9. History of gastrointestinal bleed. 10.Hypertension. 11.Hyperlipidemia. 12.History of melanoma. 13.History of hernia repair. 14.Gait dysfunction. 15. RECOMMENDATIONS AND DISCUSSION: In this 69-year-old gentleman who presented with multiple complex medical issues, we will monitor the patient closely. Continue the current medications, management and symptomatic treatment. Transition to Eliquis per Dr. Campbell. Otherwise, continue the antibiotics per ID. I would also recommend PT/ OT evaluation and treatment also. Continue the rest of medications. Prognosis guarded because of multiple complex medical issues. Further recommendations to follow. We will cut down the IV fluids. See orders for details. Discussed with the family who understands and agrees. Dr. Genao will follow tomorrow. We will continue to monitor. KEERTHI / LATANYA: [id number] /
[2019-10-24] MEDS: ATORVASTATIN 20 MG TAB PO SCH (19:59)
[2019-10-24] MEDS: clonazePAM 1 MG TAB PO SCH (20:01)
[2019-10-25] MEDS: THIAMINE 100 MG TAB PO SCH (07:31)
[2019-10-25] MEDS: CARBIDOPA-LEVODOPA 25-100 MG 1 EACH TAB PO SCH ×2 (07:31→20:59)
[2019-10-25] MEDS: FERROUS SULFATE 325 MG TAB PO SCH (07:31)
[2019-10-25] MEDS: FOLIC ACID 1 MG TAB PO SCH (07:31)
[2019-10-25] MEDS: CEPHALEXIN 500 MG CAP PO SCH ×3 (07:31→21:00)
[2019-10-25] MEDS: PANTOPRAZOLE 40 MG TABLET PO SCH (07:31)
[2019-10-25] MEDS: MULTIVITAMINS, THERA 1 EACH TAB PO SCH (07:31)
[2019-10-25] MEDS: APIXABAN 5 MG TAB PO SCH ×2 (07:31→20:54)
[2019-10-25 10:37] LABS: Anisocytosis Moderate; Basophils # (A) 0.1 k/uL (0-0.2); Basophils % (A) 1 %; Eosinophils # (A) 0.3 k/uL (0-0.7); Eosinophils % (A) 3 %; HCT 30.1 % (39.0-53.0); HGB 8.4 gm/dL (13.0-17.5); Hypochromasia Marked; Lymphocytes # (A) 0.7 k/uL (1.0-4.8); Lymphocytes % (A) 8 %; MCH 20.1 pg (25.0-35.0); MCHC 27.9 g/dL (31.0-37.0); MCV 71.9 fL (80.0-100.0); Mean Platelet Volume 7.6; Microcytosis Marked; Monocytes # (A) 0.5 k/uL (0-1.0); Monocytes % (A) 6 %; Neutrophils # (A) 7.2 k/uL (1.3-7.7); Neutrophils % (A) 81 %; Platelet Count 481 k/uL (150-450); Poikilocytosis Slight; RBC 4.19 m/uL (4.30-5.90); RDW 20.6 % (11.5-15.5); WBC 8.9 k/uL (3.8-10.6)
--- NOTE | 2019-10-25 10:54 | PN ---
PROGRESS NOTE DATE OF SERVICE: 10/24/2019 REASON FOR FOLLOWUP: Right forearm thrombophlebitis, left thigh cellulitis. INTERVAL HISTORY: The patient is currently afebrile, has been breathing comfortably. Right arm swelling persists, the redness has slightly decrease. The pain is currently controlled. Denies having any chest pain or shortness of breath. No cough. No nausea, no vomiting. No abdominal pain, no diarrhea. PHYSICAL EXAMINATION: Blood pressure 103/60 with a pulse of 70 temperature 97.8. He is 94% on room air. General description is an elderly male, lying in bed in no distress. RESPIRATORY SYSTEM: Unlabored breathing, clear to auscultation anteriorly. HEART: S1, S2. Regular rate and rhythm. ABDOMEN: Soft, no tenderness. Right arm swelling persists, redness HAS decreased and no drainage. LABS: Hemoglobin 7.7, white count 7.9, BUN of 12, creatinine 0.71. Blood culture has been negative. DIAGNOSTIC IMPRESSION AND PLAN: Patient with right arm deep venous thrombosis with concern for overlying cellulitis and septic phlebitis. Blood culture has been negative making it less likely septic phlebitis. If it remains to be negative, antibiotic will be narrowed down to cover for cellulitis only and continue supportive care. MMODL / IJN: [id number] /
[2019-10-25 11:02] LABS: African American GFR (CKD) >90 (>60 ml/min/1.73 sqM); Anion Gap 11 mmol/L; Blood Urea Nitrogen 11 mg/dL (9-20); Calcium 8.4 mg/dL (8.4-10.2); Carbon Dioxide 22 mmol/L (22-30); Chloride 102 mmol/L (98-107); Glucose 128 mg/dL (74-99); Non-African American GFR(CKD) 89 (>60 ml/min/1.73 sqM); Potassium 4.1 mmol/L (3.5-5.1); Sodium 135 mmol/L (137-145)
--- NOTE | 2019-10-25 13:09 | P.PN ---
Subjective Progress Note Date: 10/25/19 Patient is a pleasant 69-year-old male presenting to the emergency department with concerns for infection of the right arm. Patient was in the hospital for dizziness and released on Friday. Over the past 4 days patient has had increased discomfort and swelling and some redness of the right arm. This is mostly of the area where her IV was placed. No fevers. No history of similar symptoms previously. He did see me yesterday in the office for appeared to be a antecubital fossa localized cellulitis with some erythema and edema. However progress today and have instructed him to come to the ER if any swelling or persistent redness. 10/25/2019 antibiotics converted to oral Keflex as per ID. Anticoagulated on Eliquis. Significant clinical improvement. Pain controlled. Good diet intake with no nausea vomiting or diarrhea. Denies abdominal pain. Denies chest pain, palpitations or shortness of breath. Afebrile, normal WBC. Objective - Vital Signs Vital signs: Vital Signs Temp 98.7 F 10/25/19 04:50 Pulse 78 10/25/19 04:50 Resp 20 10/25/19 04:50 BP 132/76 10/25/19 04:50 Pulse Ox 92 L 10/25/19 04:50 Intake & Output 10/24/19 10/25/19 10/25/19 18:59 06:59 18:59 Intake Total 1385 100 Balance 1385 100 Intake: Oral 1385 100 Other: Voiding Method Urinal Urinal # Voids 1 2 2 - Exam GENERAL: Sitting up in chair, alert and oriented 3, no acute distress HEENT: Head is atraumatic, normocephalic. Pupils are equal, round, and reactive to light. Sclerae anicteric. Conjunctivae are clear. Mucus membranes of the mouth are moist. Neck is supple. RESPIRATORY: Clear to auscultation. No wheezes, rales, or rhonchi. No use of accessory muscles. Patient maintaining oxygen saturation greater than 92%. CARDIOVASCULAR: Regular rate and rhythm. S1 and S2 noted. No systolic or diastolic murmur auscultated. No JVD noted. No S3 or S4 noted. GASTROINTESTINAL: No distention noted. Abdomen soft and round. Normal active bowel sounds auscultated x 4 quadrants. No pain or tenderness noted upon palpation. INTEGUMENTARY: cellulitis right arm antecubital fossa. Decreased redness/edema of the right upper extremity. Pulses are intact to the radial pulse bilateral. EXTREMITIES: 2+ peripheral pulses. No calf tenderness noted. NEUROLOGIC: Cranial nerves II-XII intact. Parkinson's tremor is noted with signs of Parkinson's. PSYCHIATRIC: Awake, alert, and oriented X 3. Appropriate affect. Intact judgement and insight. Microbiology 10/22/19 12:27 Blood Blood Culture - Preliminary No Growth after 48 hours - Labs CBC & Chem 7: 10/25/19 10:06 10/25/19 10:06 Labs: Abnormal Lab Results - Last 24 Hours (Table) 10/25/19 10/25/19 Range/Units 10:06 10:06 RBC 4.19 L (4.30-5.90) m/uL Hgb 8.4 L (13.0-17.5) gm/dL Hct 30.1 L (39.0-53.0) % MCV 71.9 L (80.0-100.0) fL MCH 20.1 L (25.0-35.0) pg MCHC 27.9 L (31.0-37.0) g/dL RDW 20.6 H (11.5-15.5) % Plt Count 481 H (150-450) k/uL Lymphocytes # 0.7 L (1.0-4.8) k/uL Sodium 135 L (137-145) mmol/L Glucose 128 H (74-99) mg/dL Microbiology - Last 24 Hours (Table) 10/22/19 12:27 Blood Culture - Preliminary Blood No Growth after 48 hours Assessment and Plan Assessment: (1) Parkinsons disease Current Visit: Yes Status: Acute Code(s): G20 - PARKINSON'S DISEASE SNOMED Code(s): 92415986 (2) Deep vein thrombosis (DVT) of right upper extremity Current Visit: Yes Status: Acute Code(s): I82.621 - ACUTE EMBOLISM AND THROMBOSIS OF DEEP VEINS OF R UP EXTREM SNOMED Code(s): 491565381 (3) Right arm cellulitis Current Visit: Yes Status: Acute Code(s): L03.113 - CELLULITIS OF RIGHT UPPER LIMB SNOMED Code(s): 938107321 (4) Anemia, iron deficiency Current Visit: Yes Status: Acute Code(s): D50.9 - IRON DEFICIENCY ANEMIA, UNSPECIFIED SNOMED Code(s): 77353646 (5) Hyperlipidemia Current Visit: Yes Status: Acute Code(s): E78.5 - HYPERLIPIDEMIA, UNSPECIFIED SNOMED Code(s): 30331713 Plan: Continue current medication regime ,monitoring and symptomatic treatment. Continue following cultures closely. Maintain Keflex, anticoagulated on Eliquis. Discharge planning in progress for subacute rehab pending insurance authorization. The impression and plan of care has been dictated as directed. : I performed a history and examination of this patient, discussed the same with the dictator. I agree with the dictator's note ,documented as a scribe. Any additional findings or plans will be noted.
--- NOTE | 2019-10-25 14:36 | P.PN ---
Subjective Progress Note Date: 10/25/19 Patient seen and examined. Patient remains afebrile. Patient states pain has greatly improved in the right upper extremity along with redness and swelling. Patient has been transitioned from heparin to eliquis, and is tolerating well. Objective - Vital Signs Vital signs: Vital Signs Temp 98.7 F 10/25/19 04:50 Pulse 78 10/25/19 04:50 Resp 20 10/25/19 04:50 BP 132/76 10/25/19 04:50 Pulse Ox 92 L 10/25/19 04:50 Intake & Output 10/24/19 10/25/19 10/25/19 18:59 06:59 18:59 Intake Total 1385 100 Balance 1385 100 Intake: Oral 1385 100 Other: Voiding Method Urinal Urinal # Voids 1 2 2 - Exam General appearance: The patient is alert, oriented, in no acute distress. HET: Head is normocephalic and atraumatic. Neck: Supple. Trachea midline. Heart: S1 S2. Regular rate and rhythm. Lungs: No crackles or wheezes are heard. Extremities: Right upper extremity warm to the touch, improved erythema and swelling, indurated at the level of the antecubital fossa. Palpable radial pulse, motor sensory intact. Neurological: No focal deficits. Strength and sensation are grossly intact. - Labs CBC & Chem 7: 10/25/19 10:06 10/25/19 10:06 Labs: Abnormal Lab Results - Last 24 Hours (Table) 10/25/19 10/25/19 Range/Units 10:06 10:06 RBC 4.19 L (4.30-5.90) m/uL Hgb 8.4 L (13.0-17.5) gm/dL Hct 30.1 L (39.0-53.0) % MCV 71.9 L (80.0-100.0) fL MCH 20.1 L (25.0-35.0) pg MCHC 27.9 L (31.0-37.0) g/dL RDW 20.6 H (11.5-15.5) % Plt Count 481 H (150-450) k/uL Lymphocytes # 0.7 L (1.0-4.8) k/uL Sodium 135 L (137-145) mmol/L Glucose 128 H (74-99) mg/dL Microbiology - Last 24 Hours (Table) 10/22/19 12:27 Blood Culture - Preliminary Blood No Growth after 48 hours Assessment and Plan Assessment: Right Upper extremity DVT Right upper extremity superficial thrombophlebitis Plan: Continue patient on Eliquis. May apply TORIE hose to upper extremity or griselda wrap for comfort and swelling, keep arm elevated. Continue antibiotic recommendations per infectious disease. The above dictated assessment and findings were discussed with Dr. Dewey. The impression and plan of care have been directed as dictated.
[2019-10-25] MEDS: ATORVASTATIN 20 MG TAB PO SCH (20:54)
[2019-10-25] MEDS: clonazePAM 1 MG TAB PO SCH (20:59)
--- NOTE | 2019-10-25 21:54 | PN ---
PROGRESS NOTE DATE OF SERVICE: 10/25/2019 REASON FOR FOLLOWUP: Right arm cellulitis. INTERVAL HISTORY: The patient is currently afebrile, has been breathing comfortably. Denies having any chest pain or any cough. Overall swelling and redness to the right arm slightly decreased. No nausea, vomiting or diarrhea. PHYSICAL EXAMINATION: Blood pressure 135/79 with a pulse of 88, temperature 97.6. He is 95% on room air. General description is an elderly male lying in bed in no distress. RESPIRATORY SYSTEM: Unlabored breathing. Clear to auscultation anteriorly. HEART: S1, S2. Regular rate and rhythm. ABDOMEN: Soft. No tenderness. Right arm swelling and redness have decreased. LABS: Hemoglobin 8.4, white count 8.9, BUN of 11, creatinine 0.83. Blood cultures have been negative. DIAGNOSTIC IMPRESSION AND PLAN: Patient with right arm swelling, likely underlying deep venous thrombosis. Cellulitis is less likely but not entirely excluded. Patient is currently covered with Keflex; to continue for about 5-7 days and continue with supportive care. Plan of care was discussed with the admitting team. MMODL / IJN: [id number] /
[2019-10-25 23:28] VITALS: RESP 20
[2019-10-26 06:24] VITALS: BP 128/73; PULSE 77; TEMP 97.9
[2019-10-26] MEDS: PANTOPRAZOLE 40 MG TABLET PO SCH (08:10)
[2019-10-26] MEDS: FOLIC ACID 1 MG TAB PO SCH (08:10)
[2019-10-26] MEDS: THIAMINE 100 MG TAB PO SCH (08:10)
[2019-10-26] MEDS: FERROUS SULFATE 325 MG TAB PO SCH (08:10)
[2019-10-26] MEDS: CARBIDOPA-LEVODOPA 25-100 MG 1 EACH TAB PO SCH (08:10)
[2019-10-26] MEDS: CEPHALEXIN 500 MG CAP PO SCH (08:10)
[2019-10-26] MEDS: APIXABAN 5 MG TAB PO SCH (08:10)
[2019-10-26] MEDS: MULTIVITAMINS, THERA 1 EACH TAB PO SCH (08:10)
[2019-10-26 08:25] LABS: Anisocytosis Moderate; Basophils # (A) 0.1 k/uL (0-0.2); Basophils % (A) 1 %; Eosinophils # (A) 0.3 k/uL (0-0.7); Eosinophils % (A) 4 %; HCT 29.3 % (39.0-53.0); HGB 8.5 gm/dL (13.0-17.5); Hypochromasia Marked; Lymphocytes # (A) 0.8 k/uL (1.0-4.8); Lymphocytes % (A) 11 %; MCH 20.5 pg (25.0-35.0); MCHC 29.1 g/dL (31.0-37.0); MCV 70.3 fL (80.0-100.0); Mean Platelet Volume 7.3; Microcytosis Marked; Monocytes # (A) 0.6 k/uL (0-1.0); Monocytes % (A) 7 %; Neutrophils # (A) 5.7 k/uL (1.3-7.7); Neutrophils % (A) 75 %; Platelet Count 464 k/uL (150-450); Poikilocytosis Slight; RBC 4.17 m/uL (4.30-5.90); RDW 20.8 % (11.5-15.5); WBC 7.6 k/uL (3.8-10.6)
[2019-10-26 08:35] LABS: African American GFR (CKD) >90 (>60 ml/min/1.73 sqM); Anion Gap 9 mmol/L; Blood Urea Nitrogen 14 mg/dL (9-20); Calcium 8.6 mg/dL (8.4-10.2); Carbon Dioxide 25 mmol/L (22-30); Chloride 102 mmol/L (98-107); Glucose 102 mg/dL (74-99); Non-African American GFR(CKD) >90 (>60 ml/min/1.73 sqM); Potassium 4.7 mmol/L (3.5-5.1); Sodium 136 mmol/L (137-145)
--- NOTE | 2019-10-26 10:57 | P.DS ---
Providers Date of admission: 10/23/19 13:26 Expected date of discharge: 10/26/19 Attending physician: Rosales Genao Consults: 10/22/19 13:11 Consult Physician Urgent Consulting Provider: Checo Pena Consult Reason/Comments: Right arm cellulitis, sepsis Do you want consulting provider notified?: Yes 10/22/19 13:54 Consult Physician Urgent Consulting Provider: Flory Campbell Consult Reason/Comments: R arm DVT Do you want consulting provider notified?: Yes Primary care physician: Rosales Genao [facility] Hospital Course: Final Diagnoses: (1) Parkinsons disease Current Visit: Yes Status: Acute Code(s): G20 - PARKINSON'S DISEASE SNOMED Code(s): 36353277 (2) Deep vein thrombosis (DVT) of right upper extremity Current Visit: Yes Status: Acute Code(s): I82.621 - ACUTE EMBOLISM AND THROMBOSIS OF DEEP VEINS OF R UP EXTREM SNOMED Code(s): 411123833 (3) Right arm cellulitis Current Visit: Yes Status: Acute Code(s): L03.113 - CELLULITIS OF RIGHT UPPER LIMB SNOMED Code(s): 780075193 (4) Anemia, iron deficiency Current Visit: Yes Status: Acute Code(s): D50.9 - IRON DEFICIENCY ANEMIA, UNSPECIFIED SNOMED Code(s): 83177138 (5) Hyperlipidemia Current Visit: Yes Status: Acute Code(s): E78.5 - HYPERLIPIDEMIA, UNSPECIFIED SNOMED Code(s): 32977462 Hospital course:Patient is a pleasant 69-year-old male presenting to the emergency department with concerns for infection of the right arm. Patient was in the hospital for dizziness and released on Friday. Over the past 4 days patient has had increased discomfort and swelling and some redness of the right arm. This is mostly of the area where her IV was placed. No fevers. No history of similar symptoms previously. He did see me yesterday in the office for appeared to be a antecubital fossa localized cellulitis with some erythema and edema. However progress today and have instructed him to come to the ER if any swelling or persistent redness. 10/25/2019 antibiotics converted to oral Keflex as per ID. Anticoagulated on Eliquis. Significant clinical improvement. Pain controlled. Good diet intake with no nausea vomiting or diarrhea. Denies abdominal pain. Denies chest pain, palpitations or shortness of breath. Afebrile, normal WBC. Evaluated by infectious disease, vascular surgery. Significant clinical improvement. Cleared by all consults for discharge. Patient is being discharged to [facility] subacute rehab in a stable condition with fair prognosis. - Exam GENERAL: alert and oriented 3, no acute distress RESPIRATORY: Clear to auscultation. CARDIOVASCULAR: Regular rate and rhythm. S1 and S2 noted. No murmurs gallops or rubs. GASTROINTESTINAL: Soft, nondistended, nontender .+BS INTEGUMENTARY: cellulitis right arm antecubital fossa. Decreased redness/edema of the right upper extremity. Pulses are intact to the radial pulse bilateral. NEUROLOGIC: Cranial nerves II-XII intact. Parkinson's tremor is noted with signs of Parkinson's. The impression and plan of care has been dictated as directed. : I performed a history and examination of this patient, discussed the same with the dictator. I agree with the dictator's note ,documented as a scribe. Any additional findings or plans will be noted. Patient Condition at Discharge: Stable Plan - Discharge Summary Discharge Rx Participant: No New Discharge Prescriptions: New Cephalexin [Keflex] 500 mg PO TID #21 cap Apixaban [Eliquis] 5 mg PO BID tab Folic Acid 1 mg PO DAILY@1200 tab Multivitamins, Thera [Multivitamin (formulary)] 1 each PO DAILY@1200 tab Pantoprazole [Protonix] 40 mg PO AC-BRKFST tablet. Thiamine [Vitamin B-1] 100 mg PO DAILY@1200 tab Continue Carbidopa-Levodopa 25-100 mg [Sinemet 25-100 mg] 2 tab PO BID@1200,1600 Simvastatin [Zocor] 40 mg PO HS Carbidopa-Levodopa 25-100 mg [Sinemet 25-100 mg] 3 tab PO BID@0800,2000 Ferrous Sulfate [Iron (65 MG Elemental)] 325 mg PO W/LUNCH #30 tab clonazePAM [KlonoPIN] 1 mg PO HS #3 tab Discontinued Sulfamethoxazole/Trimethoprim [Bactrim DS 800-160 mg] 1 tab PO BID Discharge Medication List Carbidopa-Levodopa 25-100 mg [Sinemet 25-100 mg] 2 tab PO BID@1200,1600 06/29/18 [History] Carbidopa-Levodopa 25-100 mg [Sinemet 25-100 mg] 3 tab PO BID@0800,2000 10/14/19 [History] Simvastatin [Zocor] 40 mg PO HS 10/14/19 [History] Ferrous Sulfate [Iron (65 MG Elemental)] 325 mg PO W/LUNCH #30 tab 10/18/19 [Rx] Apixaban [Eliquis] 5 mg PO BID tab 10/26/19 [Rx] Cephalexin [Keflex] 500 mg PO TID #21 cap 10/26/19 [Rx] Folic Acid 1 mg PO DAILY@1200 tab 10/26/19 [Rx] Multivitamins, Thera [Multivitamin (formulary)] 1 each PO DAILY@1200 tab 10/26/19 [Rx] Pantoprazole [Protonix] 40 mg PO AC-BRKFST tablet. 10/26/19 [Rx] Thiamine [Vitamin B-1] 100 mg PO DAILY@1200 tab 10/26/19 [Rx] clonazePAM [KlonoPIN] 1 mg PO HS #3 tab 10/26/19 [Rx] Follow up Appointment(s)/Referral(s): Rosales Genao DO [Primary Care Provider] - 1 Week (After DC from subacute rehab) Patient Instructions/Handouts: Deep Vein Thrombosis (DC) Activity/Diet/Wound Care/Special Instructions: Jordan COCHRAN activity as tolerated heart healthy diet right arm DVT-Eliquis PO BID CBC, BMP in 3 days Discharge Disposition: TRANSFER TO SNF/F
[2019-10-26] MEDS ORDERED: CARBIDOPA-LEVODOPA 25-100 MG 1 EACH TAB PO SCH (12:00)
== END 2019-10-26 11:39 | DRG 300 ==
LOC: EC 11:42 → 6NMEDSUR 13:10 → OBSVTOIN 10-23 13:26
PROVIDERS: ADMIT Family Medicine; ATTEND Family Medicine
DX: I82.621 Acute embolism and thrombosis of deep veins of right upper extremity (principal); L03.113 Cellulitis of right upper limb; E87.1 Hypo-osmolality and hyponatremia; D50.9 Iron deficiency anemia, unspecified; D63.8 Anemia in other chronic diseases classified elsewhere; E78.5 Hyperlipidemia, unspecified; G20 Parkinson's disease; I10 Essential (primary) hypertension; I80.8 Phlebitis and thrombophlebitis of other sites; Z79.01 Long term (current) use of anticoagulants; Z80.1 Family history of malignant neoplasm of trachea, bronchus and lung; Z85.820 Personal history of malignant melanoma of skin; Z91.81 History of falling; Z96.1 Presence of intraocular lens; Z98.42 Cataract extraction status, left eye; Z98.41 Cataract extraction status, right eye
CPT/HCPCS: 36415; 80048; 80053; 82272; 82565; 83605; 85025; 85610; 85730; 87040; 96365; 96375; 96376; 99285

== ENCOUNTER → 2020-01-31 | Outpatient (CLI) | payer MEDICARE, OTHER ==
--- NOTE | 2020-01-31 10:51 | US ---
EXAMINATION TYPE: US venous doppler duplex UE RT DATE OF EXAM: 01/31/2020 COMPARISON: US 2019 CLINICAL HISTORY: I82.621 Acute embolism and thrombosis of deep vein. Follow up right arm DVT and SVT , patient on blood thinners SIDE PERFORMED: Right Right Arm: Positive for DVT in brachial vein at antecubital fossa, positive for SVT in cephalic vein at antecubital fossa IMPRESSION: Again noted is DVT within the right upper extremity within the brachial vein. SVT also noted.
== END | disposition home or self-care (01) ==
LOC: RADUSWWP 10:05
PROVIDERS: ATTEND Family Medicine
DX: I82.621 Acute embolism and thrombosis of deep veins of right upper extremity (principal); I47.1 Supraventricular tachycardia

== ENCOUNTER → 2020-05-09 | Outpatient (CLI) | payer MEDICARE, OTHER ==
--- NOTE | 2020-05-09 15:42 | US ---
EXAMINATION TYPE: US venous doppler duplex UE RT DATE OF EXAM: 05/09/2020 COMPARISON: Right upper extremity venous ultrasound January 31, 2020. CLINICAL HISTORY: R ARM, I82.621 Upper extremity DVT. Prior abnormal ultrasound. SIDE PERFORMED: Right Right Arm: Negative for new acute DVT Cephalic vein has persistent thrombus. Grayscale, color doppler, spectral doppler imaging performed of the deep veins of the right upper ext remity. IMPRESSION: Persistent occlusive thrombus in the superficial right cephalic vein. Interval resolution of deep venous thrombus in the right brachial vein. No new thrombus identified.
== END | disposition home or self-care (01) ==
LOC: RADUSWWP 14:10
PROVIDERS: ATTEND Family Medicine
DX: I82.611 Acute embolism and thrombosis of superficial veins of right upper extremity (principal)

== ENCOUNTER → 2021-12-18 | Outpatient (CLI) | payer MEDICARE, OTHER ==
[2021-12-18 14:54] LABS: African American GFR (CKD) >90 (>60 ml/min/1.73 sqM); Blood Urea Nitrogen 16 mg/dL (9-20); Non-African American GFR(CKD) 88 (>60 ml/min/1.73 sqM)
--- NOTE | 2021-12-18 16:13 | CT ---
EXAMINATION TYPE: CT abdomen pelvis w con DATE OF EXAM: 12/18/2021 COMPARISON: None available HISTORY: diverticulitis CT DLP: 1329.1 mGycm Automated exposure control for dose reduction was used. TECHNIQUE: Helical acquisition of images was performed from the lung bases through the pelvis. CONTRAST: Performed with Oral Contrast and with IV Contrast, patient injected with 100 mL of Isovue 300. FINDINGS: LUNG BASES: Minimal bilateral basal pulmonary reticulations. LIVER/GB: Grossly unremarkable liver. Cholelithiasis without evidence of acute cholecystitis. PANCREAS: No significant abnormality is seen. SPLEEN: No significant abnormality is seen. ADRENALS: No significant abnormality is seen. KIDNEYS: Irregular outline of the urinary bladder with focal superior extension on the right side. Pr ominent superior aspects of the uterus with extrarenal pelvis more on the right side, possibly due to the full urinary bladder. No hydronephrosis bilaterally. No definite renal lesion identified. FREE AIR: No free air is visualized. RETROPERITONEAL ADENOPATHY: None visualized REPRODUCTIVE ORGANS: Prominent prostate, please correlate with PSA level. Unremarkable seminal vesicl es. PELVIC ADENOPATHY: None visualized. OSSEOUS STRUCTURES: L4-5 and L5-S1 facet osteoarthropathy. No aggressive bone lesion. Grade 1 fany listhesis of L4 over L5. BOWEL: Large hiatal hernia containing most of the stomach. Unremarkable duodenum and small bowel. La rge fecaloma is seen within the rectum with significant fecal loading of the colon suggestive of cons tipation. Scattered uncomplicated colonic diverticulosis without convincing evidence of acute diverti culitis. Normal appendix. OTHER: Scattered arterial atherosclerotic calcifications. No sizable ascites. IMPRESSION: Significant fecal loading of the rectum and colon as described above suggestive of constipation. [place] judson diverticulosis without evidence of acute diverticulitis. Large hiatal hernia containing most of t he stomach. Other incidental findings as described above.
== END | disposition home or self-care (01) ==
LOC: RADCTMAIN 13:06
PROVIDERS: ATTEND Surgery
DX: K57.32 Diverticulitis of large intestine without perforation or abscess without bleeding (principal)
CPT/HCPCS: 82565; 84520; 74177; 36415; Q9967

== ENCOUNTER 2022-01-22 08:32 | Day surgery (SDC) | payer MEDICARE, OTHER ==
[2022-01-21 12:29] VITALS: BMI 26.3
[2022-01-22 08:54] VITALS: TEMP 97.6
[2022-01-22] MEDS ORDERED: LACTATED RINGERS 1,000 ML IV ONE (09:03)
[2022-01-22] MEDS ORDERED: PROPOFOL 10 MG/ML 20 ML VIAL IV ONE (09:31)
[2022-01-22] MEDS ORDERED: LIDOCAINE 2% INJ 20 MG/ML (2 ML VIAL) ONE (09:31)
--- NOTE | 2022-01-22 09:40 | P.GSHP ---
History of Present Illness H&P Date: 01/22/22 Chief Complaint: Nausea, GERD, abdominal pain, change in bowel habits 71-year-old male was seen in the office in November. Patient with complaints of worsening constipation. Patient also describes decreased appetite and 25 pound weight loss. Constipation has been worse lately. No rectal bleeding or melena. Patient underwent CAT scan and pelvis showing significant stool burden and large hiatal hernia. Past Medical History Past Medical History: Cancer, Eye Disorder, GI Bleed, Hyperlipidemia, Hypertension, Neurologic Disorder, Osteoarthritis (OA) Additional Past Medical History / Comment(s): Melanoma, bilateral glaucoma, Parkinson's disease, hand tremors, chronic anemia, diverticular disease, rectal bleed in past. History of Any Multi-Drug Resistant Organisms: None Reported Past Surgical History: Hernia Repair, Orthopedic Surgery Additional Past Surgical History / Comment(s): Bilateral inguinal hernia repairs, bilateral rotator cuff surgery, ORIF L ankle, L knee arthroscopy, colonoscopies, bilateral cataract removals/lens implants, skin cancer removal on back. Past Anesthesia/Blood Transfusion Reactions: No Reported Reaction Past Psychological History: No Psychological Hx Reported Smoking Status: Never smoker Past Alcohol Use History: None Reported Past Drug Use History: None Reported - Past Family History Father Family Medical History: Cancer Additional Family Medical History / Comment(s): Lung cancer. Father was a smoker. Mother Family Medical History: Neurologic Disorder Additional Family Medical History / Comment(s): Polio Medications and Allergies Home Medications Medication Instructions Recorded Confirmed Type Carbidopa-Levodopa 25-100 mg 10 tab PO DAILY 10/14/19 01/22/22 History [Sinemet 25-100 mg] Simvastatin [Zocor] 40 mg PO HS 10/14/19 01/22/22 History clonazePAM [KlonoPIN] 1 mg PO HS #3 tab 10/26/19 01/22/22 Rx Istradefylline [Nourianz] 20 mg PO Q48H 01/21/22 01/22/22 History Allergies Allergy/AdvReac Type Severity Reaction Status Date / Time No Known Allergies Allergy Verified 01/22/22 08:50 Surgical - Exam Vital Signs Temp Pulse Resp BP Pulse Ox 97.6 F 77 18 131/63 94 L 01/22/22 08:53 01/22/22 08:53 01/22/22 08:53 01/22/22 08:53 01/22/22 08:53 Physical exam: General: Well-developed, well-nourished HEENT: Normocephalic, sclerae nonicteric Abdomen: Nontender, nondistended Extremities: No edema Neuro: Alert and oriented Assessment and Plan (1) Change in bowel habits Narrative/Plan: Will proceed with upper and lower endoscopy at this time Current Visit: Yes Status: Acute Code(s): R19.4 - CHANGE IN BOWEL HABIT SNOMED Code(s): 077297797
--- NOTE | 2022-01-22 10:01 | P.PCN ---
Date of Procedure: 01/22/22 Procedure(s) Performed: PREOPERATIVE DIAGNOSIS: GERD, nausea, weight loss, change in bowel habits POSTOPERATIVE DIAGNOSIS: Gastritis, moderate hiatal hernia, mild distal esophagitis PROCEDURE: 1. EGD with biopsy 2. Colonoscopy ANESTHESIA: MAC SURGEON: Edouard Briones M.D. SPECIMENS: Antrum, GE junction ENDOSCOPIC PROCEDURE: The patient was on the endoscopy table in the left decubitus position. The Olympus gastroscope was inserted into the oropharynx and passed under direct visualization to the region of the third portion of the duodenum. From that point the scope was slowly withdrawn inspecting all surfaces carefully. There were no neoplastic inflammatory or polypoid lesions throughout the duodenum. The pylorus was widely patent. The stomach was carefully inspected. There was gastritis present diffusely.. A biopsy of the antrum took place to rule out H. pylori. Retroflexion revealed a moderate to large sized hiatal hernia the top one third of the stomach was above the diaphragm. There was mild inflammatory changes above the diaphragmatic hiatus. The patient's esophagus was tortuous. At the GE junction there was mild circumferential inflammatory changes that was localized just to the GE junction. A biopsy was taken. The remainder the esophagus appeared normal with the exce ption of the tortuosity present. The patient was kept on the endoscopy table in the left decubitus position. The Olympus colonoscope was inserted into the anus and passed under direct visualization to the region of the cecum. The patient had a large amount of retained liquid stool that had enough particulate matter within it that we could not evacuated throughout the entire colon. I could not visualize the base of the cecum. The visualized ascending, transverse, descending, sigmoid and rectum appeared otherwise normal. There was mild left-sided diverticulosis noted. Digital rectal examination was normal. The patient was taken to the recovery room in stable condition per anesthesia guidelines. RECOMMENDATIONS: Resume diet. Recommend multiple small volume meals with softer foods. We will discuss endoscopic findings with the patient.
[2022-01-22 10:08] VITALS: RESP 16
[2022-01-22 10:19] VITALS: BP 115/71; PULSE 64
== END 2022-01-22 10:35 | disposition home or self-care (01) ==
LOC: ORWHC2ENDO 08:32
PROVIDERS: ATTEND Surgery
DX: K29.50 Unspecified chronic gastritis without bleeding (principal); K44.9 Diaphragmatic hernia without obstruction or gangrene; K21.00 Gastro-esophageal reflux disease with esophagitis, without bleeding; E78.5 Hyperlipidemia, unspecified; G20 Parkinson's disease; I10 Essential (primary) hypertension; M19.90 Unspecified osteoarthritis, unspecified site; Z80.1 Family history of malignant neoplasm of trachea, bronchus and lung; Z85.820 Personal history of malignant melanoma of skin; Z79.899 Other long term (current) drug therapy
CPT/HCPCS: 45378; 43239; 88305; J2704; J2001

== ENCOUNTER → 2024-03-10 | Outpatient (CLI) | payer MEDICARE, OTHER ==
--- NOTE | 2024-03-10 14:09 | FL ---
Exam Date: 03/10/2024 11:47 AM. Modified barium swallow for dysphagia. Consistencies administered: Various consistency of barium. Fluoro time: 2.00 No images were sent to PACS. Please see speech pathology report. DAP: Not reported mGym2
== END | disposition home or self-care (01) ==
LOC: RADFLMAIN 11:17
PROVIDERS: ATTEND Psychiatry & Neurology Neurology
DX: G20.B2 Parkinson's disease with dyskinesia, with fluctuations (principal); R13.10 Dysphagia, unspecified
CPT/HCPCS: 74230

== ENCOUNTER 2024-10-14 13:07 | Inpatient (IN) | payer MEDICARE, OTHER ==
[~2024-10-14 13:07] MED LIST changes: -LACTATED RINGERS 1,000 ML IV SCH; +ROPIVACAINE/EPI/CLONIDINE/KET 50 ML SYRINGE MISCELLANE PRN
--- NOTE | 2024-10-14 13:30 | ED ---
Lower Extremity Injury HPI - General Chief Complaint: Extremity Injury, Lower Stated Complaint: Fall-L hip injury Time Seen by Provider: 10/14/24 13:07 Source: patient, EMS, RN notes reviewed Mode of arrival: EMS Limitations: physical limitation - History of Present Illness Initial Comments: 74-year-old male presents emerged part via EMS chief complaint of slip and fall outside. Patient was at the end of his driveway shelving when he slipped on the ice falling to his left hip. Patient has no head injury no loss conscious he only complains of left hip pain he denies any blood thinners patient does have a history of Parkinson's disease. Patient states he has had orthopedic surgeries by Dr. Perea in the past. - Related Data Home Medications Medication Instructions Recorded Confirmed Carbidopa-Levodopa 25-100 mg 3 tab PO BID@0800,1200 10/14/19 10/17/23 [Sinemet 25-100 mg] Simvastatin [Zocor] 40 mg PO HS 10/14/19 10/17/23 Carbidopa-Levodopa 25-100 mg 2 tab PO BID@1600,2000 10/17/23 10/17/23 [Sinemet 25-100 mg] Docusate [Colace] 100 mg PO DAILY 10/17/23 10/17/23 Escitalopram [Lexapro] 5 mg PO HS 10/17/23 10/17/23 Midodrine HCl [ProAmantine] 2.5 mg PO TID 10/17/23 10/17/23 polyethylene glycoL 3350 [Miralax] 8.5 gm PO DAILY 10/17/23 10/17/23 Previous Rx's Medication Instructions Recorded clonazePAM [KlonoPIN] 1 mg PO HS #3 tab 10/26/19 Pantoprazole Sodium [Protonix] 40 mg PO DAILY #30 tab 10/21/23 Allergies Allergy/AdvReac Type Severity Reaction Status Date / Time No Known Allergies Allergy Verified 10/14/24 13:16 Review of Systems ROS Statement: Those systems with pertinent positive or pertinent negative responses have been documented in the HPI. ROS Other: All systems not noted in ROS Statement are negative. Past Medical History Past Medical History: Cancer, Eye Disorder, GI Bleed, Hyperlipidemia, Hypertension, Neurologic Disorder, Osteoarthritis (OA) Additional Past Medical History / Comment(s): Melanoma, bilateral glaucoma, Parkinson's disease, hand tremors, chronic anemia, diverticular disease, rectal bleed in past. History of Any Multi-Drug Resistant Organisms: None Reported Past Surgical History: Hernia Repair, Orthopedic Surgery Additional Past Surgical History / Comment(s): Bilateral inguinal hernia repairs, bilateral rotator cuff surgery, ORIF L ankle, L knee arthroscopy, colonoscopies, bilateral cataract removals/lens implants, skin cancer removal on back. Past Anesthesia/Blood Transfusion Reactions: No Reported Reaction Past Psychological History: No Psychological Hx Reported Smoking Status: Never smoker Past Alcohol Use History: None Reported Past Drug Use History: None Reported - Past Family History Father Family Medical History: Cancer Additional Family Medical History / Comment(s): Lung cancer. Father was a smoker. Mother Family Medical History: Neurologic Disorder Additional Family Medical History / Comment(s): Polio General Exam Limitations: physical limitation General appearance: alert, in no apparent distress Head exam: Present: atraumatic, normocephalic, normal inspection Neck exam: Present: normal inspection, full ROM. Absent: tenderness, meningismus, lymphadenopathy Respiratory exam: Present: normal lung sounds bilaterally. Absent: respiratory distress, wheezes, rales, rhonchi, stridor Cardiovascular Exam: Present: regular rate, normal rhythm, normal heart sounds. Absent: systolic murmur, diastolic murmur, rubs, gallop, clicks Extremities exam: Present: other (Left hip tenderness, there is shortening and external rotation noted neurovascular intact) Back exam: Present: full ROM. Absent: tenderness Neurological exam: Present: alert, oriented X3 Course Vital Signs 10/14/24 13:08 Temperature 97.4 F L Pulse Rate 71 Respiratory 18 Rate Blood Pressure 132/97 O2 Sat by Pulse 98 Oximetry Medical Decision Making - Medical Decision Making Was pt. sent in by a medical professional or institution (, PA, MEDICAL RECORD TRANSCRIBER, urgent care, hospital, or correction...) When possible be specific @ -No Did you speak to anyone other than the patient for history (EMS, parent, family, police, friend...)? What history was obtained from this source @ -No Did you review nursing and triage notes (agree or disagree)? Why? @ -I reviewed and agree with nursing and triage notes Were old charts reviewed (outside hosp., previous admission, EMS record, old EKG, old radiological studies, urgent care reports/EKG's, correction records)? Report findings @ -No old charts were reviewed Differential Diagnosis (chest pain, altered mental status, abdominal pain women, abdominal pain men, vaginal bleeding, weakness, fever, dyspnea, syncope, headache, dizziness, GI bleed, back pain, seizure, CVA, palpatations, mental health, musculoskeletal)? @ -Fall, hip contusion, hip fracture, pelvic fracture EKG interpreted by me (3pts min.). @ -As above X-rays interpreted by me (1pt min.). @ -Chest ray 1 view preop no acute process no pneumothorax X-ray left hip with AP pelvis showing left femoral neck fracture CT interpreted by me (1pt min.). @ -None done U/S interpreted by me (1pt. min.). @ -None done What testing was considered but not performed or refused? (CT, X-rays, U/S, labs)? Why? @ -None What meds were considered but not given or refused? Why? @ -None Did you discuss the management of the patient with other professionals (annmarie kilgore i.e. , PA, MEDICAL RECORD TRANSCRIBER, lab, RT, psych nurse, social media marketer, gas station cashier, teacher, hospital security officer, immigration case manager)? Give summary @ -Janette with orthopedics associate for admission regarding left hip fracture Was smoking cessation discussed for >3mins.? @ -No Was critical care preformed (if so, how long)? @ -No Were there social determinants of health that impacted care today? How? (Homelessness, low income, unemployed, alcoholism, drug addiction, transportation, low edu. Level, literacy, decrease access to med. care, alf, rehab)? @ -No Was there de-escalation of care discussed even if they declined (Discuss DNR or withdrawal of care, Hospice)? DNR status @ -No What co-morbidities impacted this encounter? (DM, HTN, Smoking, COPD, CAD, Cancer, CVA, ARF, Chemo, Hep., AIDS, mental health diagnosis, sleep apnea, morbid obesity)? @ -Parkinson Was patient admitted / discharged? Hospital course, mention meds given and route, prescriptions, significant lab abnormalities, going to OR and other pertinent info. @Admitted patient has a left hip fracture patient will be admitted to orthopedics associate on-call patient will have preop labs ordered EKG chest x- ray with consult to Dr. Genao. Undiagnosed new problem with uncertain prognosis? @ -No Drug Therapy requiring intensive monitoring for toxicity (Heparin, Nitro, Insulin, Cardizem)? @ -No Were any procedures done? @ -No Diagnosis/symptom? @ -Fall, left hip fracture Acute, or Chronic, or Acute on Chronic? @ -Acute Uncomplicated (without systemic symptoms) or Complicated (systemic symptoms)? @ -Complicated Side effects of treatment? @ -No Exacerbation, Progression, or Severe Exacerbation? @ -No Poses a threat to life or bodily function? How? (Chest pain, [place], [place], pneumonia, PE, COPD, DKA, ARF, appy, cholecystitis, CVA, Diverticulitis, Homicidal, Suicidal, threat to staff... and all critical care pts) @ -Yes surgical risk - Lab Data Result diagrams: 10/14/24 13:28 Lab Results 10/14/24 10/14/24 Range/Units 13:28 13:28 PT 11.4 (10.0-12.5) sec INR 1.0 (<1.2) APTT 24.3 (22.0-30.0) sec Sodium 138 (137-145) mmol/L Potassium 4.2 (3.5-5.1) mmol/L Chloride 101 (98-107) mmol/L Carbon Dioxide 25 (22-30) mmol/L Anion Gap 12 mmol/L BUN 19 (9-20) mg/dL Creatinine 0.86 (0.66-1.25) mg/dL Est GFR (CKD-EPI)AfAm >90 (>60 ml/min/1.73 sqM) Est GFR (CKD-EPI)NonAf 85 (>60 ml/min/1.73 sqM) Glucose 120 H (74-99) mg/dL Calcium 9.2 (8.4-10.2) mg/dL Total Bilirubin 1.3 (0.2-1.3) mg/dL AST 27 (17-59) U/L ALT 15 (4-49) U/L Alkaline Phosphatase 54 (38-126) U/L Total Protein 7.8 (6.3-8.2) g/dL Albumin 4.5 (3.5-5.0) g/dL - EKG Data -: EKG Interpreted by Me EKG Comments: EKG performed at 13: 47 sinus bradycardia with a rate of 56 OH 238 QRS 105 QT/QTc 398/390 Disposition Clinical Impression: Fall, Fracture of femoral neck, left Disposition: ADMITTED IP TO THIS HOSP Condition: Fair Referrals: Rosales Genao DO [Primary Care Provider] - 1-2 days Time of Disposition: 13:56
[2024-10-14 13:47] LABS: Partial Thromboplastin Time 24.3 sec (22.0-30.0); Prothrombin Time 11.4 sec (10.0-12.5)
[2024-10-14 13:49] LABS: ALT 15 U/L (4-49); AST 27 U/L (17-59); African American GFR (CKD) >90 (>60 ml/min/1.73 sqM); Albumin 4.5 g/dL (3.5-5.0); Alkaline Phosphatase 54 U/L (38-126); Anion Gap 12 mmol/L; Blood Urea Nitrogen 19 mg/dL (9-20); Calcium 9.2 mg/dL (8.4-10.2); Carbon Dioxide 25 mmol/L (22-30); Chloride 101 mmol/L (98-107); Glucose 120 mg/dL (74-99); Non-African American GFR(CKD) 85 (>60 ml/min/1.73 sqM); Potassium 4.2 mmol/L (3.5-5.1); Sodium 138 mmol/L (137-145); Total Bilirubin 1.3 mg/dL (0.2-1.3); Total Protein 7.8 g/dL (6.3-8.2)
[2024-10-14] MEDS ORDERED: NALOXONE 0.4 MG/ML 1 ML VIAL IV PRN (13:54)
[2024-10-14 13:56] LABS: Basophils % (A) 0 %; Eosinophils # (A) 0.1 k/uL (0-0.7); Eosinophils % (A) 2 %; HCT 42.3 % (39.0-53.0); HGB 14.7 gm/dL (13.0-17.5); Lymphocytes # (A) 0.7 k/uL (1.0-4.8); Lymphocytes % (A) 8 %; MCH 31.5 pg (25.0-35.0); MCHC 34.8 g/dL (31.0-37.0); MCV 90.7 fL (80.0-100.0); Mean Platelet Volume 8.1; Monocytes # (A) 0.5 k/uL (0-1.0); Monocytes % (A) 5 %; Neutrophils % (A) 83 %; Platelet Count 212 k/uL (150-450); RBC 4.67 m/uL (4.30-5.90); RDW 13.1 % (11.5-15.5); WBC 8.4 k/uL (3.8-10.6)
--- NOTE | 2024-10-14 14:07 | XR ---
EXAMINATION TYPE: XR chest 1V DATE OF EXAM: 10/14/2024 1:52 PM COMPARISON: Chest radiographs from 10/17/2023 CLINICAL INDICATION: Male, 74 years old with history of pain; TECHNIQUE: XR chest 1V Frontal view of the chest. FINDINGS: Lungs/Pleura: Low lung volumes are present. There is no evidence of pleural effusion, focal consolida tion, or pneumothorax. Pulmonary vascularity: Unremarkable. Heart/mediastinum: Cardiomediastinal silhouette is unremarkable. Musculoskeletal: No acute osseous pathology. IMPRESSION: Low lung volumes with a generalized hazy appearance which could represent atelectasis versus pulmonar y edema correlate with serum BNP. [facility], , 10/14/2024 2:05 PM
--- NOTE | 2024-10-14 14:09 | XR ---
EXAMINATION TYPE: XR Hip LT and AP Pelvis DATE OF EXAM: 10/14/2024 1:52 PM COMPARISON: None CLINICAL INDICATION: Male, 74 years old with history of pain; PHH, pain TECHNIQUE: XR Hip LT and AP Pelvis; hip was examined in the frontal and lateral projections and a AP pelvis. FINDINGS: Acute fracture left proximal femoral neck with varus deformity. Subcutaneous and soft tissu e swelling. No additional fractures. Pelvic fluid was noted. Degeneration changes. Mild degeneration changes right hip with osteophyte formation joint space narrowing.. IMPRESSION: Acute left femoral neck fracture with varus deformity. [facility], , 10/14/2024 2:06 PM
--- NOTE | 2024-10-14 14:44 | XR ---
EXAMINATION TYPE: XR femur LT DATE OF EXAM: 10/14/2024 2:35 PM COMPARISON: Same day radiographs CLINICAL INDICATION: Male, 74 years old with history of femoral neck fracture, left; PHH, pain TECHNIQUE: XR femur LT examined in Frontal and lateral projections. FINDINGS/IMPRESSION: Acute proximal left femur neck fracture with varus deformity and displacement. [facility], , 10/14/2024 2:42 PM
[2024-10-14] MEDS: HYDROmorphone 1 MG/ML 1 ML SYRINGE IVP PRN (15:28)
--- NOTE | 2024-10-14 15:39 | P.CONS ---
History of Present Illness - Reason for Consult Consult date: 10/14/24 Medical Clearance - Chief Complaint Slip and fall on ice - History of Present Illness Please disregard this note and preop clearance. Was notified that patient will be seen by other hospitalist group per PCP request. Consult attending has been changed by orthopedic surgery accordingly. 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 He presented to the emergency department today status post slip and fall on ice. Patient was shoveling in his driveway when he slipped and fell on the ice landing onto his left side. He denies hitting his head or having any loss of consciousness or experiencing any other injuries during fall. Patient reports immediate pain to left hip and was unable to get back up and EMS was called for transport to the hospital. Upon arrival to our facility, patient underwent evaluation in the emergency department. Vital signs upon arrival show blood pressure 132/97, heart rate 71, respiratory rate 18, temp 97.4 F, and SpO2 of 90% on room air. EKG was completed showing sinus bradycardia 56 bpm with a first-degree AV block with IN interval of 238 ms, no T wave or ST abnormality showing no signs of acute ischemia upon personal review and interpretation. X-ray completed showing low lung volumes with generalized hazy appearance likely representing atelectasis. X-ray left hip/pelvis/femur showing acute left femoral neck fracture with varus deformity. Labs completed and reviewed. CBC unremarkable. Coagulation profile normal findings. BMP also unremarkable. Blood glucose 120. Liver profile normal findings. Patient was admitted under orthopedic surgery team and we were consulted for medical clearance at this time. Patient is a patient of Dr. Genao, however per ortho pedic surgery team unable to complete STAT consult at this time. Patient seen and fully evaluated at bedside. He reports 7-8 out of 10 pain to left hip and lower extremity. He denies having any numbness or tingling. Denies headache, lightheadedness, dizziness, chest pain, palpitations, shortness of breath, cough or congestion, or any other complaints at this time. Patient denies history of heart disease, cardiac arrhythmias, COPD or previous lung problems, denies history of smoking, and denies any difficulties with anesthesia in the past. Patient does report history of unprovoked DVT approximately 4 years ago in which she was on anticoagulation for a short while which was later discontinued by his physician. Review of systems: Pertinent positives and negatives as discussed in HPI, a complete review of systems was performed and all other systems are negative. Physical exam: Vital signs reviewed and stable. General: Nontoxic, no distress and appears stated age. Derm: Skin warm and dry, normal coloration for ethnicity. Head: Atraumatic, normocephalic and symmetric. Eyes: EOM's intact, no lid lag, and anicteric sclera Mouth: no lip lesions, mucus membranes moist Cardiovascular: regular rate and rhythm with normal S1S2, no murmur, positive posterior tibial pulses bilaterally, and cap refill < 2 seconds. Lungs: Respirations even, regular, and unlabored on room air. Lungs slightly di minished otherwise no rhonchi, no rales, no wheezing, and no accessory muscle usage. Abdominal: soft, nontender to palpation, no guarding, no appreciable organomegaly Ext: Sensation intact. Movement of left lower extremity limited secondary to acute injury.. No gross muscle atrophy, no edema, no contractures. Patient with positive shortening and left lateral rotation of left lower extremity. P osterior tibial pulse palpated. Sensation and movement of left foot intact. Neuro: Speech clear, face symmetrical and CN II-XII grossly intact with no noted focal neuro deficits. GCS 15. Patient with parkinsonian tremors face, upper extremities and left lower extremity. Psych: Alert and oriented to person, place, time, and situation. Appropriate and pleasant affect. Assessment and Plan of Care: Acute left femoral neck fracture with varus deformity Traumatic slip and fall on ice -METS score is greater than 4. Patient reports at baseline he is able to perform ADLs and walk 1-2 blocks and/or up 1 flight of stairs without experiencing any chest pain or shortness of breath. -NSQIP surgical risk score was calculated. Patient at a below average risk at 2.6% with average risk being 3.1% for serious complications, average risk of cardiac complications at 0.2% with average of 0.2%, and below average risk of at 0.1%. -Patient is medically optimized at this time and may proceed with planned urgent left total hip arthroplasty with Dr. Braaksma. -Educated patient and and Strongly recommend continued teaching of importance of incentive spirometry use in post-operative period as due to pt's Parkinson's disease he is at increased risk of developing postoperative pneumonia. -Order placed for insertion of Campbell catheter for needed immobilization. -Continue symptomatic care and pain management with Tylenol 650 mg p.o. every 6 hours as needed for mild pain, [place] 5-325 mg tablets every 4 hours as needed for moderate pain, and. Dilaudid 1 mg IVP every 3 hours as needed for severe pain. -Secondary to history of unprovoked DVT recommend extended postoperative DVT pro phylaxis for 30 days. Parkinson's disease -Continue supportive care and assistance as needed. Patient to continue daily medication regimen with Sinemet 25-100 mg tablets take 2 tablets twice daily at 4 PM and 8 PM and 3 tablets twice daily at 8 AM and 12 PM. Hypertension -Patient reports history of hypertension no longer on antihypertensive medication but does take midodrine 2.5 mg 3 times daily. Patient may resume midodrine 2.5 mg 3 times daily and parameters placed to hold for systolic p ressure greater than 120. Hyperlipidemia -Continue atorvastatin 20 mg nightly. BPH Continue Flomax 0.4 mg nightly. History of DVT Secondary to history of unprovoked DVT, recommend extended postoperative DVT prophylaxis for 30 days. DVT prophylaxis per primary admitting orthopedic surgery team. Data and imaging reviewed: As stated above in HPI. Thank you for allowing us to participate in the care of this pleasant patient. Do not hesitate to contact us with questions. Someone can be reached from the [facility] group all hours of the day at [phone] or via UpTo. Patient was seen independently by Nurse Practitioner. This document was prepared using Idiro dictation software. Please allow for errors in goldbeater while rare they do occur. Karan Salgado NP rendered care for this patient independently, reviewed the findings and plan as documented in the note above and agree with plan. I did not physically speak with or examine the patient on this date. Past Medical History Past Medical History: Cancer, Eye Disorder, GI Bleed, Hyperlipidemia, Hypertension, Neurologic Disorder, Osteoarthritis (OA) Additional Past Medical History / Comment(s): Melanoma, bilateral glaucoma, Parkinson's disease, hand tremors, chronic anemia, diverticular disease, rectal bleed in past. History of Any Multi-Drug Resistant Organisms: None Reported Past Surgical History: Hernia Repair, Orthopedic Surgery Additional Past Surgical History / Comment(s): Bilateral inguinal hernia repa irs, bilateral rotator cuff surgery, ORIF L ankle, L knee arthroscopy, colonoscopies, bilateral cataract removals/lens implants, skin cancer removal on back. Past Anesthesia/Blood Transfusion Reactions: No Reported Reaction Past Psychological History: No Psychological Hx Reported Smoking Status: Never smoker Past Alcohol Use History: None Reported Past Drug Use History: None Reported - Past Family History Father Family Medical History: Cancer Additional Family Medical History / Comment(s): Lung cancer. Father was a smoker. Mother Family Medical History: Neurologic Disorder Additional Family Medical History / Comment(s): Polio Medications and Allergies Home Medications Medication Instructions Recorded Confirmed Type Carbidopa-Levodopa 25-100 mg 3 tab PO BID@0800,1200 10/14/19 10/14/24 History [Sinemet 25-100 mg] Simvastatin [Zocor] 40 mg PO HS 10/14/19 10/14/24 History clonazePAM [KlonoPIN] 1 mg PO HS #3 tab 10/26/19 10/14/24 Rx Carbidopa-Levodopa 25-100 mg 2 tab PO BID@1600,2000 10/17/23 10/14/24 History [Sinemet 25-100 mg] Escitalopram [Lexapro] 5 mg PO HS 10/17/23 10/14/24 History Midodrine HCl [ProAmantine] 2.5 mg PO TID 10/17/23 10/14/24 History Doxylamine Succinate [Unisom] 25 mg PO HS 10/14/24 10/14/24 History Tamsulosin [Flomax] 0.4 mg PO HS 10/14/24 10/14/24 History Allergies Allergy/AdvReac Type Severity Reaction Status Date / Time No Known Allergies Allergy Verified 10/14/24 14:14 Physical Exam Vitals: Vital Signs Temp Pulse Resp BP Pulse Ox 10/14/24 14:46 67 18 166/80 95 10/14/24 13:08 97.4 F L 71 18 132/97 98 Intake and Output 10/14/24 10/14/24 10/14/24 06:59 14:59 22:59 Other: Weight 81.647 kg Results CBC & Chem 7: 10/14/24 13:28 10/14/24 13:28 Labs: Abnormal Lab Results - Last 24 Hours (Table) 10/14/24 10/14/24 Range/Units 13:28 13:28 Lymphocytes # 0.7 L (1.0-4.8) k/uL Glucose 120 H (74-99) mg/dL
[2024-10-14] MEDS ORDERED: ACETAMINOPHEN TAB 325 MG TAB PO PRN (15:52)
[2024-10-14] MEDS: CARBIDOPA-LEVODOPA 25-100 MG 1 EACH TAB PO SCH (15:55)
[2024-10-14] MEDS: MIDODRINE 5 MG TAB PO SCH (16:31)
[2024-10-14] MEDS: IV FLUID CONTINUATION 1,000 ML IV ONE (17:44)
[2024-10-14] MEDS ORDERED: ROPIVACAINE/EPI/CLONIDINE/KET 50 ML SYRINGE MISCELLANE PRN (17:46)
[2024-10-14] MEDS: MIDAZOLAM 2 MG/2 ML VIAL IV ONE (17:51)
--- NOTE | 2024-10-14 18:40 | P.ANPRN ---
Procedure Note - Anesthesia - Nerve Block Performed Left [place] Single Time Out Performed: Yes Date of Procedure: 10/14/24 Procedure Start Time: 17:50 Procedure Stop Time: 17:55 Location of Patient: PreOp Indication: Acute Post-Operative Pain, Analgesia, Requested by Surgeon Sedation Type: Sedate with meaningful contact maintained Preparation: Sterile Prep Position: Supine Catheter: None Needle Types: Pajunk Needle Gauge: 21 Ultrasound used to visualize needle placement: Yes Ultrasound used to observe medication spread: Yes Injectate: 0.5% Ropivacaine (see comment for volume) (Ropiv 20ml+Decadron 4mg) Blood Aspirated: No Pain Paresthesia on Injection Noted: No Resistance on Injection: Normal Image Stored and Saved: Yes Events: Uneventful and Well Tolerated
--- NOTE | 2024-10-14 19:21 | P.HPOR ---
History of Present Illness H&P Date: 10/14/24 Chief Complaint: Left hip pain Patient is a 74-year-old male with a history of Parkinson's but no other major medical conditions. He was shoveling his driveway earlier today when he fell onto his left side he had immediate pain to his left hip and inability to bear weight. Is well localized to the left hip he denies any pain in any of his other extremities. Pain is worse with attempted motion or direct contact to the left hip. Denies any numbness or tingling to the left lower extremity. Patient denies significant left hip pain prior to the fall. Patient at baseline is a community ambulator and does not require assistive devices. Patient denies any usage of blood thinners. Review of Systems Constitutional: Denies chills, Denies fever Cardiovascular: Denies chest pain Respiratory: Denies cough, Denies wheezing Musculoskeletal: Reports as per HPI Neurological: Denies numbness Past Medical History Past Medical History: Cancer, Eye Disorder, GI Bleed, Hyperlipidemia, Hypertension, Neurologic Disorder, Osteoarthritis (OA) Additional Past Medical History / Comment(s): Melanoma, bilateral glaucoma, Parkinson's disease, hand tremors, chronic anemia, diverticular disease, rectal bleed in past. History of Any Multi-Drug Resistant Organisms: None Reported Past Surgical History: Hernia Repair, Orthopedic Surgery Additional Past Surgical History / Comment(s): Bilateral inguinal hernia repairs, bilateral rotator cuff surgery, ORIF L ankle, L knee arthroscopy, colonoscopies, bilateral cataract removals/lens implants, skin cancer removal on back. Past Anesthesia/Blood Transfusion Reactions: No Reported Reaction Past Psychological History: No Psychological Hx Reported Smoking Status: Never smoker Past Alcohol Use History: None Reported Past Drug Use History: None Reported - Past Family History Father Family Medical History: Cancer Additional Family Medical History / Comment(s): Lung cancer. Father was a smoker. Mother Family Medical History: Neurologic Disorder Additional Family Medical History / Comment(s): Polio Medications and Allergies Home Medications Medication Instructions Recorded Confirmed Type Carbidopa-Levodopa 25-100 mg 3 tab PO BID@0800,1200 10/14/19 10/14/24 History [Sinemet 25-100 mg] Simvastatin [Zocor] 40 mg PO HS 10/14/19 10/14/24 History clonazePAM [KlonoPIN] 1 mg PO HS #3 tab 10/26/19 10/14/24 Rx Carbidopa-Levodopa 25-100 mg 2 tab PO BID@1600,2000 10/17/23 10/14/24 History [Sinemet 25-100 mg] Escitalopram [Lexapro] 5 mg PO HS 10/17/23 10/14/24 History Midodrine HCl [ProAmantine] 2.5 mg PO TID 10/17/23 10/14/24 History Doxylamine Succinate [Unisom] 25 mg PO HS 10/14/24 10/14/24 History Tamsulosin [Flomax] 0.4 mg PO HS 10/14/24 10/14/24 History Allergies Allergy/AdvReac Type Severity Reaction Status Date / Time No Known Allergies Allergy Verified 10/14/24 14:14 Physical Examination On exam of the left hip the skin is intact he is tender to palpation globally around the left hip there is pain with any attempted range of motion. Full strength testing of the left hip is deferred due to known fracture. Patient has intact sensation to light touch throughout the left lower extremity has normal motor function to left ankle plantar dorsiflexion he is able to move all toes of the left foot. Palpable DP pulse and brisk capillary refill throughout the left foot Tertiary exam does not show any signs of trauma to the other extremities there is no tenderness or instability to palpation to the bilateral upper extremities and right lower extremity. Results - Labs Labs: Abnormal Lab Results - Last 24 Hours (Table) 10/14/24 10/14/24 Range/Units 13:28 13:28 Lymphocytes # 0.7 L (1.0-4.8) k/uL Glucose 120 H (74-99) mg/dL H & H 10/14/24 Range/Units 13:28 Hgb 14.7 (13.0-17.5) gm/dL Hct 42.3 (39.0-53.0) % Coagulation 10/14/24 Range/Units 13:28 INR 1.0 (<1.2) Result Diagrams: 10/14/24 13:28 10/14/24 13:28 - Diagnostic results Hip x-ray: image reviewed (Images of the left hip demonstrate a completely displaced femoral neck fracture) Assessment and Plan Assessment: Laced left femoral neck fracture Plan: Detailed discussion was had with the patient and family regarding the nature of the injury. They sustained an unstable hip fracture. Based on their baseline ambulatory status this is an injury that would greatly benefit from surgical intervention in order to provide patient with the best chance of regaining mobility after this injury. We discussed non operative treatment is theoretically possible but would require prolonged non weight bearing to the affected leg which would ultimately result in prolonged immobilization and is associated with significantly increased mortality rates. We discussed that the most appropriate surgical option for this injury would be [in his situation with his baseline good functional status a total hip arthroplasty versus a hemiarthroplasty]. The risks of surgery include scarring, risk of swelling and possible permanent swelling of the affected extremity, superficial vs deep infections, damage to surrounding structures including muscles, nerve, tendons, blood vessels, hardware failure, [dislocation], need for additional future surgery, sensitive scar, continued pain, risk of stroke, heart attack, and . Benefits include replacing the fractured bone and resurfacing the hip joint and helping with baseline pain, providing the patient with the opportunity to weight bear on the extremity immediately after surgery. We also discussed the likely post operative course after surgery including several days in the hospital after surgery and evaluation by the PT and OT staff to aid in determining the proper destination after their hospitalization, this may require a period of time at a rehab or nursing facility. We also discussed realistic expectations regarding function after this injury, the best case scenario is she returns to her baseline functional level but many times patients become more depending on support aids based on their previous level of function. After discussion with my total joint arthroplasty partners we agree that a total hip arthroplasty would be the best surgical option for this patient given his baseline functional status. Plan would be for the OR today after medical clearance, unfortunately due to unforeseen delays in the OR the decision was made to postpone the patient surgery until tomorrow For now patient will be nonweightbearing to the left lower extremity N.p.o. at midnight Multi modal pain regimen for pain control Appreciate medicine evaluation for preoperative clearance Plan for OR tomorrow 10-15-2024 for left total hip arthroplasty
[2024-10-14] MEDS: ESCITALOPRAM 5 MG TAB PO SCH (21:18)
[2024-10-14] MEDS: ATORVASTATIN 20 MG TAB PO SCH (21:18)
[2024-10-14] MEDS: TAMSULOSIN 0.4 MG CAP.ER.24H PO SCH (21:18)
[2024-10-14] MEDS: diphenhydrAMINE 25 MG CAP PO SCH (21:18)
[2024-10-14] MEDS: clonazePAM 1 MG TAB PO SCH (21:18)
[2024-10-14] MEDS: HYDROcodone/APAP 5-325MG 1 EACH TAB PO PRN (21:46)
[2024-10-15] MEDS: DEXTROSE 5%-0.45% NACL 1,000 ML IV SCH (06:50)
[2024-10-15 08:27] LABS: HCT 39.8 % (39.6-50.0); MCH 29.7 pg (27.0-32.0); MCHC 32.7 g/dL (32.0-37.0); MCV 90.9 FL (80.0-97.0); Mean Platelet Volume 9.6 FL (9.5-12.2); NRBC Per 100 WBC 0 X 10*3/uL (0.00-0.01); Platelet Count 232 X 10*3/uL (140-440); RBC 4.38 X 10*6/uL (4.40-5.60); RDW 13.2 % (11.5-14.5); WBC 7.34 X 10*3/uL (4.50-10.00)
[2024-10-15 08:33] LABS: ALT 10 U/L (10-49); AST 22 U/L (14-35); Albumin 3.9 g/dL (3.8-4.9); Alkaline Phosphatase 59 U/L (41-126); Blood Urea Nitrogen 11.9 mg/dL (9.0-27.0); Calcium 8.6 mg/dL (8.7-10.3); Carbon Dioxide 23.9 mmol/L (21.6-31.8); Chloride 106 mmol/L (96-109); Globulin 2.6 g/dL (1.6-3.3); Glucose 119 mg/dL (70-110); Magnesium 1.9 mg/dL (1.5-2.4); Potassium 4.1 mmol/L (3.5-5.5); Sodium 140 mmol/L (135-145); Total Bilirubin 1.4 mg/dL (0.3-1.2); Total Protein 6.5 g/dL (6.2-8.2)
[2024-10-15] MEDS: CARBIDOPA-LEVODOPA 25-100 MG 1 EACH TAB PO SCH (08:45)
[2024-10-15] MEDS: IV FLUID CONTINUATION 1,000 ML IV ONE (15:40)
[2024-10-15] MEDS: DEXAMETHASONE SOD PHOSPHATE 4 MG/ML 1 ML VIAL IVP STA (15:54)
[2024-10-15] MEDS: ONDANSETRON 4 MG/2 ML VIAL IVP PRN (15:54)
[2024-10-15] MEDS: LACTATED RINGERS 1,000 ML BAG IV STA (16:14)
[2024-10-15] MEDS ORDERED: MIDAZOLAM 2 MG/2 ML VIAL ONE (16:41)
[2024-10-15] MEDS ORDERED: DEXAMETHASONE SOD PHOSPHATE 4 MG/ML 1 ML VIAL ONE (16:41)
[2024-10-15] MEDS ORDERED: PHENYLEPHRINE-0.9% NACL SYG 1,000 MCG/10 ML SYRINGE ONE (16:41)
[2024-10-15] MEDS ORDERED: ROPIVACAINE 5 MG/ML 30 ML VIAL ONE (16:41)
[2024-10-15] MEDS ORDERED: SUCCINYLCHOLINE CHLORIDE 200 MG/10 ML VIAL IV ONE (16:41)
[2024-10-15] MEDS ORDERED: TRANEXAMIC 1,000 MG/100ML-NACL PREMIX BAG ONE (16:41)
[2024-10-15] MEDS ORDERED: LIDOCAINE 1% INJ 10MG/ML (20 ML MDV) ONE (16:41)
[2024-10-15] MEDS ORDERED: NEOSTIGMINE 1 MG/ML 10 ML VIAL ONE (16:41)
[2024-10-15] MEDS ORDERED: ROCURONIUM 10 MG/ML (5 ML VIAL) IV ONE (16:41)
[2024-10-15] MEDS ORDERED: KETAMINE HCL IN 0.9 % NACL 50 MG/5 ML SYRINGE ONE (16:41)
[2024-10-15] MEDS ORDERED: PROPOFOL 10 MG/ML 20 ML VIAL IV ONE (16:41)
[2024-10-15] MEDS ORDERED: fentaNYL (PF) 50 MCG/ML 2 ML AMP ONE (16:41)
[2024-10-15] MEDS ORDERED: VASOPRESSIN 20 UNIT/ML 1 ML VIAL ONE (16:41)
[2024-10-15] MEDS ORDERED: GLYCOPYRROLATE 0.2 MG/ML 2 ML VIAL ONE (16:41)
[2024-10-15] MEDS ORDERED: ePHEDrine 50 MG/ML 1 ML VIAL ONE (16:41)
[2024-10-15] MEDS: ceFAZolin 1,000 MG in SODIUM CHLORIDE 0.9% 1,000 ML IRRIGATION ONE (17:28)
[2024-10-15] MEDS: ROPIVACAINE 5 MG/ML 30 ML VIAL MISCELLANE ONE ×2 (17:28→18:41)
[2024-10-15] MEDS: LACTATED RINGERS 1,000 ML IV ONE (17:39)
--- NOTE | 2024-10-15 18:11 | P.PN ---
Subjective Progress Note Date: 10/15/24 Patient a pleasant 74-year-old white male who had a slip and fall while shoveling snow he suffered a left femoral neck fracture and is currently awaiting surgery he had a preoperative clearance and evaluation by [facility] and also in my opinion patient is cleared for surgery he is get a sinus br adycardia on his EKG which is normal for him. He does suffer from Parkinson's so concerns about his rehab were discussed. He denies any nausea vomiting diarrhea constipation. He was quite healthy leading up to this unfortunate accident. Objective - Vital Signs Vital signs: Vital Signs Temp 97 F L 10/15/24 15:40 Pulse 44 L 10/15/24 16:08 Resp 17 10/15/24 16:08 BP 131/61 10/15/24 16:08 Pulse Ox 97 10/15/24 16:08 FiO2 Intake & Output 10/14/24 10/15/24 10/15/24 18:59 06:59 18:59 Intake Total 100 1051 Output Total 1400 825 Balance -1300 -825 1051 Weight 81.647 kg 81.647 kg Intake: IV 100 1051 Output: Urine 1400 825 Uretheral (Campbell) 200 Other: Voiding Method Indwelling Catheter - Exam GENERAL: This is a 74-year-old in acute distress at the time of examination. HEENT: Head is atraumatic, normocephalic. Pupils are equal, round, and reactive to light. RESPIRATORY: Clear to auscultation. No wheezes, rales, or rhonchi. No use of accessory muscles. Patient maintaining oxygen saturation greater than 92%. No chest wall tenderness is noted on palpation or with deep breathing. CARDIOVASCULAR: Regular rate and rhythm. S1 and S2 noted. No systolic or diastolic murmur auscultated. No JVD noted. No S3 or S4 noted. GASTROINTESTINAL: No distention noted. Abdomen soft and round. Normal active bowel sounds auscultated x 4 quadrants. No pain or tenderness noted upon palpation. INTEGUMENTARY: No cyanosis. No jaundice. No rashes noted. No cellulitis noted. EXTREMITIES: Right leg hip pain with shortening and external rotation. Pulses are intact of the distal extremities bilateral. NEUROLOGIC: Cranial nerves II-XII intact. PSYCHIATRIC: Awake, alert, and oriented X 3. Appropriate affect. Intact judgement and insight. - EENT ENT: Present: tonsillar swelling - Labs CBC & Chem 7: 10/15/24 04:44 10/15/24 04:44 Labs: Abnormal Lab Results - Last 24 Hours (Table) 10/15/24 10/15/24 Range/Units 04:44 04:44 RBC 4.38 L (4.40-5.60) X 10*6/uL Glucose 119 H (70-110) mg/dL Calcium 8.6 L (8.7-10.3) mg/dL Total Bilirubin 1.4 H (0.3-1.2) mg/dL Albumin/Globulin Ratio 1.50 L (1.60-3.17) Ratio Assessment and Plan (1) Fall Current Visit: Yes Status: Acute Code(s): W19.XXXA - UNSPECIFIED FALL, INITIAL ENCOUNTER SNOMED Code(s): 7935079 (2) Fracture of femoral neck, left Current Visit: Yes Status: Acute Code(s): S72.002A - FRACTURE OF UNSP PART OF NECK OF LEFT FEMUR, INIT SNOMED Code(s): 0891682 Plan: Patient is cleared for surgery continue to monitor patient's blood pressure and heart rate continued to administer pain control DVT prophylaxis postoperative rehab might be impeded by his overall Parkinson's condition.
--- NOTE | 2024-10-15 18:50 | P.OP ---
Date of Procedure: 10/15/24 Preoperative Diagnosis: Subcapital fracture left hip Postoperative Diagnosis: Subcapital fracture left hip Procedure(s) Performed: Left total hip arthroplasty with a direct anterior approach Implants: [employer] Polarstem standard size 3 with a collar [employer] R3, 3 hole hemispherical acetabular shell, 54 mm [employer] Reflection 6.5 mm cancellus screws, 25 mm 2 [employer] R3, XLPE 20 acetabular liner [employer] Oxinium femoral head 36 mm, +0 All components were press-fit. The articulation is Oxinium on polyethylene. Anesthesia: GETA Surgeon: Randy Lomax Bed Machine Operator #1: Michael Arambula Estimated Blood Loss (ml): 500 Pathology: none sent Condition: stable Disposition: PACU Indications for Procedure: This is a 74-year-old gentleman that slipped while shoveling snow yesterday. He sustained a subcapital fracture of his left hip. After discussing the surgical nonsurgical treatment options with her at length, I recommended a left total hip arthroplasty with a direct anterior approach. Informed consent was obtained. Operative Findings: The operative findings are consistent with a subcapital fracture of the left hip Description of Procedure: The patient was seen and evaluated in the preoperative area and the consent was reviewed. The operative site was marked with a skin marker. The patient verified the procedure and operative site. A MIKE block was placed by anesthesia in the preoperative area. The patient was then brought to the operating room and given preoperative antibiotics intravenously. 1 g of Tranexamic acid was also given intravenously. A spinal anesthetic was administered by the anesthesia department. The patient was then placed on the Westpoint table with the bony prominences well-padded. The hip area was then prepped with a ChloraPrep solution and draped in the usual sterile fashion. A universal timeout was then performed, which confirmed the patient's name, surgical site, ALLERGIES, and procedure being performed on the consent. Next the incision site was located at 1 cm distal and 4 cm lateral to the anterior superior iliac spine. The skin and subcutaneous tissues were sharply incised. Incision was carefully dissected down to the fascia overlying the tensor fascia sissy muscle. This fascia was then incised in line with the muscle fibers. Care was taken to stay laterally in order to avoid injuring the lateral femoral cutaneous nerve. Next, using blunt finger dissection, the tensor fascia sissy muscle was dissected off its investing fascia. The muscle was then carefully retracted laterally with a cobra retractor over the lateral neck of the femur. Next, the circumflex vessels were identified and cauterized using the Aquamantis device. The anterior hip capsule was then exposed. The capsule was then opened and an inverted T fashion. The subcapital fracture was readily visualized, and the fracture hematoma was evacuated. The retractors were then placed intracapsularly. The retractors were maintained intracapsular throughout the procedure. The proximal femur was then visualized. A small amount of traction was placed on the leg. The femoral neck was then osteotomized at the appropriate level above the lesser trochanter. A small wedge of bone was then removed from the remaining femoral head. Next, using a corkscrew the femoral head was removed from the acetabulum. The femoral head was then measured. Attention was then turned to the acetabulum. The acetabulum was exposed and any remaining labrum was excised. Sequential reaming of the acetabulum was performed using fluoroscopic guidance until there was a good bed of bleeding cancellus bone. When the appropriate size was reached, a trial was then placed. The position and fit of the trial was checked with fluoroscopy. The trial was then removed. Then, using fluoroscopic guidance, the final implant was impacted at 20 of anteversion and 40 of abduction, and fully seated in the acetabulum. 2 screws were then placed in the acetabulum. Again fluoroscopy was used to check position of the screws. Next, the liner was then impacted, with a 20 elevated liner located in the anterior superior quadrant. Component locking was confirmed. Attention was then directed to the femur. With the aid of the Westpoint table, the femur was externally rotated to approximately 130, extended, and adducted under the opposite leg. A side hook was then placed under the proximal femur, and the side hook elevator was used to elevate the proximal femur while releasing the capsule. Retractors were then placed. A capsular release was performed, as well as a release of the conjoined tendon, which afforded excellent visualization of the proximal femur. Next, a box osteotome was used to lateralize the proximal femur. A wharf hand was then used to locate the femoral canal. Sequential broaching was then performed with appropriate size which afforded excellent fixation in the proximal femur. A trial was then placed with appropriate head and neck, and the hip was gently reduced with the aid of the Westpoint table. Fluoroscopy was then used to check position of the components, as well as to evaluate the leg lengths and offset. The leg lengths and offset were measured as closely as possible to ensure stability of the hip. The hip was then gently dislocated and the trials were then removed. Final implants were then impacted and the hip was again reduced. Final fluoroscopic x-rays confirmed that the components were in anatomic position. The leg lengths and offset were measured and were found to coincide with the trial measurements. The hip was also taken through range of motion, and found to be stable. The hip was then copiously irrigated with antibiotic solution with pulsatile lavage. The hip was then irrigated with Irrisept solution. The soft tissues were then injected with a ropivacaine solution. A second dose of 1 g of Tranexamic acid was also given intravenously. The fascia was then closed with 2-0 strata fix suture. The subcutaneous tissue was closed with 3-0 Vicryl. The subcuticular tissue was closed with 3-0 moncryl suture. The skin was then closed with Exofin skin glue. After the glue and dried, and Optifoam silver impregnated dressing was applied. The patient was then transferred to the recovery room in stable condition. The kitchen assistant Michael Arambula MD was required due to the complexity of surgery, and the need for skilled surgical scrub technologist for positioning, draping, exposure, retraction, and closure of the wound.
[2024-10-15] MEDS: LACTATED RINGERS 1,000 ML IV SCH (19:19)
[2024-10-15] MEDS: HYDROmorphone 0.5 MG/0.5 ML SYRINGE IVP PRN (19:35)
[2024-10-15] MEDS: MEPERIDINE 25 MG/ML SYRINGE IVP STA (19:48)
[2024-10-15] MEDS: SENNOSIDES-DOCUSATE SODIUM 1 EACH TAB PO SCH (21:09)
[2024-10-15] MEDS: ASPIRIN 325 MG TAB PO SCH (21:09)
--- NOTE | 2024-10-15 22:07 | FL ---
Fluoroscopy INDICATION: Pain FINDINGS: Fluoroscopy time: 29.7 seconds. Total dose area product (DAP) in uGy*m?, mGy*cm? (or similar): 1.0726 Images obtained: 0. IMPRESSION: 1. Documentation of fluoroscopy. [facility], Workstation: [facility], 10/15/2024 10:05 PM
--- NOTE | 2024-10-15 23:21 | XR ---
EXAMINATION TYPE: XR Hip Limited LT DATE OF EXAM: 10/15/2024 7:38 PM COMPARISON: None. CLINICAL INDICATION: Male, 74 years old with history of Status post hip surgery, assess surgical luann rivera, pain TECHNIQUE: 1 view(s) obtained. FINDINGS: There is placement of a left hip prosthesis. The femur may have faint lucency within the greater troc hanter. Nondisplaced fracture not excluded. There is a fracture of the acetabulum spur near its super ior aspect. There is an acetabular component with screw and femoral prosthesis present. No additional areas suspi cious for acute fracture evident. IMPRESSION: 1. Nondisplaced fracture of the greater trochanter not excluded. Close follow-up recommended. 2. Fracture of the acetabular spur adjacent to the acetabular component of the prosthesis. [facility], Workstation: [facility], 10/15/2024 11:19 PM
--- NOTE | 2024-10-15 23:26 | XR ---
Fluoroscopy INDICATION: Pain FINDINGS: Fluoroscopy time: 29.7 seconds. Total dose area product (DAP) in uGy*m?, mGy*cm? (or similar): 1.0726 Images obtained: 3. Images document placement of a right hip prosthesis IMPRESSION: 1. Documentation of fluoroscopy. [facility], Workstation: [facility], 10/15/2024 11:24 PM
--- NOTE | 2024-10-16 08:05 | P.PN ---
Subjective Progress Note Date: 10/16/24 Principal diagnosis: Status post left total hip arthroplasty This is a 74 year-old male post left total hip arthroplasty. This is post-op day 1. The patient was evaluated at the bedside today. The patient denies nausea, vomiting, abdominal pain, shortness of breath, and chest pain this morning. He states his pain is controlled at this time. The patient has not been up with physical therapy. Objective - Vital Signs Vital signs: Vital Signs Temp 97.7 F 10/15/24 19:12 Pulse 68 10/15/24 21:59 Resp 16 10/15/24 20:15 BP 105/64 10/15/24 21:59 Pulse Ox 95 10/15/24 21:59 FiO2 Intake & Output 10/15/24 10/16/24 10/16/24 18:59 06:59 18:59 Intake Total 1751 150 Output Total 700 50 Balance 1051 100 Weight 81.647 kg Intake: IV 1751 150 Output: Urine 200 50 Estimated Blood Loss 500 Other: Voiding Method Indwelling Catheter - Exam The patient does not appear in acute distress. Alert and orientated x3. Dressing is clean dry and intact. Incision appears fine with no erythema or active drainage. Calf is soft and nontender. Good foot and ankle motion without difficulty. Sensation and circulatory status is intact. - Labs CBC & Chem 7: 10/15/24 04:44 10/15/24 04:44 Labs: Abnormal Lab Results - Last 24 Hours (Table) 10/15/24 10/15/24 Range/Units 04:44 04:44 RBC 4.38 L (4.40-5.60) X 10*6/uL Glucose 119 H (70-110) mg/dL Calcium 8.6 L (8.7-10.3) mg/dL Total Bilirubin 1.4 H (0.3-1.2) mg/dL Albumin/Globulin Ratio 1.50 L (1.60-3.17) Ratio Assessment and Plan (1) Status post left hip replacement Current Visit: Yes Status: Acute Code(s): Z96.642 - PRESENCE OF LEFT ARTIFICIAL HIP JOINT SNOMED Code(s): 620731830 (2) Fall Current Visit: Yes Status: Acute Code(s): W19.XXXA - UNSPECIFIED FALL, INITIAL ENCOUNTER SNOMED Code(s): 6338143 (3) Fracture of femoral neck, left Current Visit: Yes Status: Acute Code(s): S72.002A - FRACTURE OF UNSP PART OF NECK OF LEFT FEMUR, INIT SNOMED Code(s): 3393139 (4) Parkinsons disease Current Visit: No Status: Acute Code(s): G20 - PARKINSON'S DISEASE * DO NOT USE * SNOMED Code(s): 35909339 Plan: 1. Continue pain control 2. Anticoagulation with Aspirin 3. Start physical therapy and ambulation today, weightbearing as tolerated 4. Anticipate discharge home vs. skilled rehab depending on his course
[2024-10-16 09:47] LABS: Basophils # (A) 0.01 X 10*3/uL (0.00-0.10); Basophils % (A) 0.1 %; Eosinophils # (A) 0 X 10*3/uL (0.04-0.35); Eosinophils % (A) 0 %; HCT 33.9 % (39.6-50.0); HGB 11.1 g/dL (13.0-17.0); Lymphocytes # (A) 0.47 X 10*3/uL (0.90-5.00); MCH 29.6 pg (27.0-32.0); MCHC 32.7 g/dL (32.0-37.0); MCV 90.4 FL (80.0-97.0); Mean Platelet Volume 9.4 FL (9.5-12.2); Monocytes # (A) 0.58 X 10*3/uL (0.20-1.00); Monocytes % (A) 4.9 %; NRBC Per 100 WBC 0 X 10*3/uL (0.00-0.01); Neutrophils # (A) 10.72 X 10*3/uL (1.80-7.70); Neutrophils % (A) 90.6 %; Platelet Count 186 X 10*3/uL (140-440); RBC 3.75 X 10*6/uL (4.40-5.60); RDW 13.4 % (11.5-14.5); WBC 11.83 X 10*3/uL (4.50-10.00)
--- NOTE | 2024-10-16 13:25 | P.PN ---
Subjective Progress Note Date: 10/16/24 Interval History: Patient a pleasant 74-year-old white male who had a slip and fall while shoveling snow he suffered a left femoral neck fracture and is currently awaiting surgery he had a preoperative clearance and evaluation by [facility] and also in my opinion patient is cleared for surgery he is get a sinus bradycardia on his EKG which is normal for him. He does suffer from Parkinson's so concerns about his rehab were discussed. He denies any nausea vomiting diarrhea constipation. He was quite healthy leading up to this unfortunate accident. 10/16--patient was seen and examined today. No issues overnight. Pain is controlled. No bowel movement today. Passing flatus, no nausea or vomiting. Awaiting PT/OT evaluation. Assessment and plan: Fall: Left femoral neck fracture status post IMN Acute blood loss anemia: Postoperative Pain control, DVT prophylaxis per orthopedic Bowel/bladder protocol Fall precautions PT/OT consult Parkinson disease: History of GI bleed Hypertension Hyperlipidemia Monitor vital signs and labs Labs and medication were reviewed. Continue home meds. Continue same treatment. Further recommendations as per clinical course of the patient PHYSICAL EXAMINATION: GENERAL: The patient is A&O x3, NAD HEENT: EOMI, Sclerae anicteric, Moist Mucous membranes Neck: Supple, Non tender, No JVD PULMONARY: Equal breath souds B/L, No wheezing, No crackles. CARDIOVASCULAR: S1, S2 present. No murmurs, rubs, or gallops. ABDOMEN: Soft, nontender, nondistended, normoactive bowel sounds. No guarding or rebound tenderness. MUSCULOSKELETAL: No edema, No cyanosis. No clubbing. Normal ROM. Intact peripheral pulses. Left hip dressing intact. NEUROLOGICAL: CN 2-12 grossly intact. No FND Skin: No Rash REVIEW OF SYSTEMS: CONSTITUTIONAL: No fever or chills. CARDIOVASCULAR: No chest pain, palpitations or syncope. PULMONARY: No shortness of breath, no cough, sore throat. GASTROINTESTINAL: No nausea, vomiting, diarrhea, abdominal pain. : No Dysuria, urgency, frequency. Extremities: No edema. NEUROLOGICAL: No headaches, no weakness, or numbness Dictation was produced using [employer] dictation software. please excuse any grammatical, word or spelling errors. Objective - Vital Signs Vital signs: Vital Signs Temp 97.8 F 10/16/24 07:51 Pulse 89 10/16/24 08:00 Resp 16 10/16/24 08:00 BP 106/63 10/16/24 07:51 Pulse Ox 95 10/16/24 07:51 FiO2 Intake & Output 10/15/24 10/16/24 10/16/24 18:59 06:59 18:59 Intake Total 1751 150 Output Total 700 50 50 Balance 1051 100 -50 Weight 81.647 kg Intake: IV 1751 150 Output: Urine 200 50 50 Estimated Blood Loss 500 Other: Voiding Method Indwelling Catheter Indwelling Catheter - Labs CBC & Chem 7: 10/16/24 03:10 10/15/24 04:44 Labs: Abnormal Lab Results - Last 24 Hours (Table) 10/16/24 Range/Units 03:10 WBC 11.83 H (4.50-10.00) X 10*3/uL RBC 3.75 L (4.40-5.60) X 10*6/uL Hgb 11.1 L (13.0-17.0) g/dL Hct 33.9 L (39.6-50.0) % MPV 9.4 L (9.5-12.2) FL Immature Gran # 0.05 H (0.00-0.04) X 10*3/uL Neutrophils # 10.72 H (1.80-7.70) X 10*3/uL Lymphocytes # 0.47 L (0.90-5.00) X 10*3/uL Eosinophils # 0 L (0.04-0.35) X 10*3/uL
[2024-10-16] MEDS: SODIUM CHLORIDE 0.9% 1,000 ML IV ONE (15:20)
[2024-10-16] MEDS: MIDODRINE 5 MG TAB PO SCH (17:22)
--- NOTE | 2024-10-17 08:23 | P.PN ---
Subjective Progress Note Date: 10/17/24 Principal diagnosis: Status post left total hip arthroplasty This is a 74 year-old male post left total hip arthroplasty. This is post-op day 2. The patient was evaluated at the bedside today. The patient denies nausea, vomiting, abdominal pain, shortness of breath, and chest pain this morning. He states his pain is controlled at this time. The patient has been up with physical therapy and ambulated twice to the bathroom yesterday. He had a zacarias catheter re-inserted due to urinary retention. No new complaints. Objective - Vital Signs Vital signs: Vital Signs Temp 98.3 F 10/17/24 07:09 Pulse 72 10/17/24 07:09 Resp 17 10/17/24 07:09 BP 111/68 10/17/24 07:09 Pulse Ox 95 10/17/24 07:09 FiO2 Intake & Output 10/16/24 10/17/24 10/17/24 18:59 06:59 18:59 Intake Total 2050 Output Total 1325 1800 Balance 725 -1800 Intake: Intake, IV Titration 1400 Amount Lactated Ringers 1,000 ml 400 @ 50 mls/hr IV .Q20H FUNMILAYO Rx#:[id number] Sodium Chloride 0.9% 1, 1000 000 ml @ 999 mls/hr IV . Q1H1M ONE Rx#:[id number] Oral 650 Output: Urine 1325 1800 Uretheral (Zacarias) 625 1000 Other: Voiding Method Indwelling Catheter - Exam The patient does not appear in acute distress. Alert and orientated x3. Dressing is clean dry and intact. Incision appears fine with no erythema or active drainage. Calf is soft and nontender. Good foot and ankle motion without difficulty. Sensation and circulatory status is intact. - Labs CBC & Chem 7: 10/16/24 03:10 10/15/24 04:44 Labs: Abnormal Lab Results - Last 24 Hours (Table) 10/16/24 Range/Units 03:10 WBC 11.83 H (4.50-10.00) X 10*3/uL RBC 3.75 L (4.40-5.60) X 10*6/uL Hgb 11.1 L (13.0-17.0) g/dL Hct 33.9 L (39.6-50.0) % MPV 9.4 L (9.5-12.2) FL Immature Gran # 0.05 H (0.00-0.04) X 10*3/uL Neutrophils # 10.72 H (1.80-7.70) X 10*3/uL Lymphocytes # 0.47 L (0.90-5.00) X 10*3/uL Eosinophils # 0 L (0.04-0.35) X 10*3/uL Assessment and Plan (1) Status post left hip replacement Current Visit: Yes Status: Acute Code(s): Z96.642 - PRESENCE OF LEFT ARTIFICIAL HIP JOINT SNOMED Code(s): 055029192 (2) Fall Current Visit: Yes Status: Acute Code(s): W19.XXXA - UNSPECIFIED FALL, INITIAL ENCOUNTER SNOMED Code(s): 7683211 (3) Fracture of femoral neck, left Current Visit: Yes Status: Acute Code(s): S72.002A - FRACTURE OF UNSP PART OF NECK OF LEFT FEMUR, INIT SNOMED Code(s): 1205601 (4) Parkinsons disease Current Visit: No Status: Acute Code(s): G20 - PARKINSON'S DISEASE * DO NOT USE * SNOMED Code(s): 47329866 Plan: 1. Continue pain control 2. Anticoagulation with Aspirin 3. Continue physical therapy and ambulation today, weightbearing as tolerated 4. Anticipate discharge home vs. skilled rehab depending on his course
--- NOTE | 2024-10-17 14:57 | P.PN ---
Subjective Progress Note Date: 10/17/24 Interval History: Patient a pleasant 74-year-old white male who had a slip and fall while shoveling snow he suffered a left femoral neck fracture and is currently awaiting surgery he had a preoperative clearance and evaluation by [facility] and also in my opinion patient is cleared for surgery he is get a sinus bradycardia on his EKG which is normal for him. He does suffer from Parkinson's so concerns about his rehab were discussed. He denies any nausea vomiting diarrhea constipation. He was quite healthy leading up to this unfortunate accident. 10/16--patient was seen and examined today. No issues overnight. Pain is controlled. No bowel movement today. Passing flatus, no nausea or vomiting. Awaiting PT/OT evaluation. 10/17--patient was seen and examined today. No issues overnight. Pain is controlled. Has a Campbell's catheter reinserted due to urinary retention. Passing flatus. No bowel movement. Blood pressure is better today. Received 1 L fluid bolus yesterday. Increase midodrine to 5 mg 3 times daily yesterday. Awaiting placement to subacute rehab. Assessment and plan: Fall: Left femoral neck fracture status post left hip arthroplasty: Acute blood loss anemia: Postoperative Pain control, DVT prophylaxis per orthopedic Bowel/bladder protocol Fall precautions PT/OT consult Parkinson disease: History of GI bleed Hypertension Hyperlipidemia Continue home meds. Disposition: Subacute rehab Monitor vital signs and labs Labs and medication were reviewed. Continue home meds. Continue same treatment. Further recommendations as per clinical course of the patient PHYSICAL EXAMINATION: GENERAL: The patient is A&O x3, NAD HEENT: EOMI, Sclerae anicteric, Moist Mucous membranes Neck: Supple, Non tender, No JVD PULMONARY: Equal breath souds B/L, No wheezing, No crackles. CARDIOVASCULAR: S1, S2 present. No murmurs, rubs, or gallops. ABDOMEN: Soft, nontender, nondistended, normoactive bowel sounds. No guarding or rebound tenderness. MUSCULOSKELETAL: No edema, No cyanosis. No clubbing. Normal ROM. Intact peripheral pulses. Left hip dressing intact. NEUROLOGICAL: CN 2-12 grossly intact. No FND Skin: No Rash REVIEW OF SYSTEMS: CONSTITUTIONAL: No fever or chills. CARDIOVASCULAR: No chest pain, palpitations or syncope. PULMONARY: No shortness of breath, no cough, sore throat. GASTROINTESTINAL: No nausea, vomiting, diarrhea, abdominal pain. : No Dysuria, urgency, frequency. Extremities: No edema. NEUROLOGICAL: No headaches, no weakness, or numbness Dictation was produced using [employer] dictation software. please excuse any grammatical, word or spelling errors. Objective - Vital Signs Vital signs: Vital Signs Temp 97.8 F 10/17/24 13:22 Pulse 75 10/17/24 13:22 Resp 17 10/17/24 13:22 BP 102/54 10/17/24 13:22 Pulse Ox 95 10/17/24 13:22 FiO2 Intake & Output 10/16/24 10/17/24 10/17/24 18:59 06:59 18:59 Intake Total 2050 Output Total 1325 1800 Balance 725 -1800 Intake: Intake, IV Titration 1400 Amount Lactated Ringers 1,000 ml 400 @ 50 mls/hr IV .Q20H FUNMILAYO Rx#:[id number] Sodium Chloride 0.9% 1, 1000 000 ml @ 999 mls/hr IV . Q1H1M ONE Rx#:[id number] Oral 650 Output: Urine 1325 1800 Uretheral (Campbell) 625 1000 Other: Voiding Method Indwelling Catheter Indwelling Catheter - Labs CBC & Chem 7: 10/16/24 03:10 10/15/24 04:44
[2024-10-17] MEDS: MAGNESIUM HYDROXIDE 2,400 MG/30 ML CUP PO PRN (15:22)
--- NOTE | 2024-10-17 16:56 | P.ANPRN ---
Procedure Note - Anesthesia - Nerve Block Performed Left [place] Single Time Out Performed: Yes Date of Procedure: 10/15/24 Procedure Start Time: 16:00 Procedure Stop Time: 16:06 Location of Patient: PreOp Indication: Acute Post-Operative Pain, Requested by Surgeon Sedation Type: Sedate with meaningful contact maintained Preparation: Sterile Prep Position: Supine Catheter: Indwelling Needle Types: Pajunk Needle Gauge: 21 Ultrasound used to visualize needle placement: Yes Ultrasound used to observe medication spread: Yes Blood Aspirated: No Pain Paresthesia on Injection Noted: No Resistance on Injection: Normal Image Stored and Saved: Yes Events: Uneventful and Well Tolerated (Ropivacaine 0.5% 20 cc plus dexamethasone 4 mg)
--- NOTE | 2024-10-18 07:02 | P.PN ---
Subjective Progress Note Date: 10/18/24 This is a 74-year-old male who is status post left total hip arthroplasty with direct anterior approach. This is postoperative day #3 and patient is seen and evaluated at bedside today. Patient states that his pain is well-controlled, and he has walked only a short distance so far with assistance. Patient states that he is considering discharge to ECF. Objective - Vital Signs Vital signs: Vital Signs Temp 98.2 F 10/18/24 01:10 Pulse 80 10/18/24 01:10 Resp 20 10/18/24 01:10 BP 116/63 10/18/24 01:10 Pulse Ox 94 L 10/18/24 01:10 FiO2 Intake & Output 10/17/24 10/18/24 10/18/24 18:59 06:59 18:59 Intake Total 360 Output Total 2500 2200 Balance -2500 -1840 Intake: Oral 360 Output: Urine 2500 2200 Other: Voiding Method Indwelling Catheter Indwelling Catheter - Exam Vital signs are stable. Patient is in no acute distress and is alert and oriented 3. Calf is soft and nontender to palpation. Dressing is clean, dry, and intact. Patient has full foot and ankle motion without pain or difficulty. Sensation intact. Neurovascular status and circulatory status are intact. - Labs CBC & Chem 7: 10/16/24 03:10 10/15/24 04:44 Assessment and Plan (1) Fall Current Visit: Yes Status: Acute Code(s): W19.XXXA - UNSPECIFIED FALL, INITIAL ENCOUNTER SNOMED Code(s): 3654599 (2) Fracture of femoral neck, left Current Visit: Yes Status: Acute Code(s): S72.002A - FRACTURE OF UNSP PART OF NECK OF LEFT FEMUR, INIT SNOMED Code(s): 7235354 (3) Status post left hip replacement Current Visit: Yes Status: Acute Code(s): Z96.642 - PRESENCE OF LEFT ARTIFICIAL HIP JOINT SNOMED Code(s): 790604403 Plan: Continue routine postop care and pain control. Continue anticoagulation with aspirin. Weightbearing as tolerated with a walker. Leave dressing in place for 7 days. Appreciate input from internal medicine. Anticipate discharge to ECF in the next 24-48 hours.
[2024-10-18 07:50] VITALS: RESP 18
[2024-10-18 09:57] LABS: Basophils # (A) 0.05 X 10*3/uL (0.00-0.10); Basophils % (A) 0.7 %; Eosinophils # (A) 0.37 X 10*3/uL (0.04-0.35); HCT 32.1 % (39.6-50.0); HGB 10.3 g/dL (13.0-17.0); Lymphocytes # (A) 1.08 X 10*3/uL (0.90-5.00); Lymphocytes % (A) 14.5 %; MCH 29.9 pg (27.0-32.0); MCHC 32.1 g/dL (32.0-37.0); MCV 93.3 FL (80.0-97.0); Mean Platelet Volume 9.9 FL (9.5-12.2); Monocytes # (A) 0.73 X 10*3/uL (0.20-1.00); Monocytes % (A) 9.8 %; NRBC Per 100 WBC 0 X 10*3/uL (0.00-0.01); Neutrophils # (A) 5.21 X 10*3/uL (1.80-7.70); Neutrophils % (A) 69.7 %; Platelet Count 182 X 10*3/uL (140-440); RBC 3.44 X 10*6/uL (4.40-5.60); RDW 13.6 % (11.5-14.5); WBC 7.46 X 10*3/uL (4.50-10.00)
--- NOTE | 2024-10-18 14:07 | P.DS ---
Providers Date of admission: 10/14/24 14:28 Expected date of discharge: 10/18/24 Attending physician: Randy Lomax Consults: 10/14/24 20:09 Consult Physician Routine Consulting Provider: Rosales Genao Reason/Comments: medical management Do you want consulting provider notified?: Already Contacted Primary care physician: Rosales Genao - Discharge Diagnosis(es) (1) Fall Current Visit: Yes Status: Acute (2) Fracture of femoral neck, left Current Visit: Yes Status: Acute (3) Status post left hip replacement Current Visit: Yes Status: Acute Hospital Course: This is a 74 year-old male who sustained a fracture of his left hip after a fall at home on 10/14/2024. The patient presented for evaluation in the emergency room where x-rays revealed left subcapital hip fracture. After discussion and consideration patient elects to proceed with left total hip arthroplasty. The patient is seen preoperatively by Dr. Lomax and medically cleared for surgery by internal medicine. Patient is admitted to [facility] on 10/14/2024 and left total hip arthroplasty is performed on 10/15/2024. The procedure is performed without complication or sequelae. The patient is doing well postoperatively. Labs and vital signs are stable on day of discharge. Patient has a zacarias catheter placed for urinary retention and will be followed as an outpatient. On day of discharge patient's hip incision is healing well. There is minimal erythema. There is no drainage noted at this time. There is minimal soft tissue swelling to the hip and thigh. Patient has full foot and ankle motion without difficulty or pain. Calf is soft and nontender to palpation. Neurovascular status to the left lower extremity is intact. Patient is discharged to rehab in good condition. Please see med rec for accurate list of home medications. Patient Condition at Discharge: Fair Plan - Discharge Summary Discharge Rx Participant: No New Discharge Prescriptions: New Sennosides [Senokot] 2 tab PO DAILY PRN #60 tablet PRN Reason: Constipation Aspirin 325 mg PO BID #60 tab HYDROcodone/APAP 5-325MG [[place] 5-325] 1 - 2 tab PO Q6HR PRN #32 tab PRN Reason: Pain Acetaminophen Tab [Tylenol] 650 mg PO Q6HR PRN tab PRN Reason: Mild Pain Or Fever > 100.5 Continue Simvastatin [Zocor] 40 mg PO HS Carbidopa-Levodopa 25-100 mg [Sinemet 25-100 mg] 3 tab PO BID@0800,1200 Carbidopa-Levodopa 25-100 mg [Sinemet 25-100 mg] 2 tab PO BID@1599,1999 Midodrine HCl [ProAmantine] 2.5 mg PO TID Escitalopram [Lexapro] 5 mg PO HS clonazePAM [KlonoPIN] 1 mg PO HS #3 tab Tamsulosin [Flomax] 0.4 mg PO HS Doxylamine Succinate [Unisom] 25 mg PO HS Discharge Medication List Carbidopa-Levodopa 25-100 mg [Sinemet 25-100 mg] 3 tab PO BID@0800,1200 10/14/19 [History] Simvastatin [Zocor] 40 mg PO HS 10/14/19 [History] Carbidopa-Levodopa 25-100 mg [Sinemet 25-100 mg] 2 tab PO BID@1600,2000 10/17/23 [History] Escitalopram [Lexapro] 5 mg PO HS 10/17/23 [History] Midodrine HCl [ProAmantine] 2.5 mg PO TID 10/17/23 [History] Doxylamine Succinate [Unisom] 25 mg PO HS 10/14/24 [History] Tamsulosin [Flomax] 0.4 mg PO HS 10/14/24 [History] Acetaminophen Tab [Tylenol] 650 mg PO Q6HR PRN tab 10/18/24 [Rx] Aspirin 325 mg PO BID #60 tab 10/18/24 [Rx] HYDROcodone/APAP 5-325MG [[place] 5-325] 1 - 2 tab PO Q6HR PRN #32 tab 10/18/24 [Rx] Sennosides [Senokot] 2 tab PO DAILY PRN #60 tablet 10/18/24 [Rx] clonazePAM [KlonoPIN] 1 mg PO HS #3 tab 10/18/24 [Rx] Follow up Appointment(s)/Referral(s): Rosales Genao DO [Primary Care Provider] - 1 Week (After DC from subacute rehab) [facility], [NON-STAFF] - As Needed Randy Lomax DO [Doctor of Osteopathic Medicine] - 2 Weeks Activity/Diet/Wound Care/Special Instructions: Weightbearing as tolerated with walker. Leave dressing intact. Dressing may be removed by home care nurse or by patient in 7 days. Then change dressing twice daily until follow up. May shower with initial dressing intact and after removal. If dressing become saturated, please remove. Please take aspirin 325mg twice daily for 30 days to prevent blood clots. Recommend use of compression stockings daily until follow up to help prevent swelling and blood clots. May remove at night before sleeping. Please follow-up with [facility] in 2 weeks and call with any questions or concerns, . Incentive spirometer every hour x 10 while awake Discharge Disposition: TRANSFER TO SNF/ECF
[2024-10-18 14:26] VITALS: BP 99/52; PULSE 74; TEMP 97.6
--- NOTE | 2024-10-18 16:02 | P.PN ---
Subjective Progress Note Date: 10/18/24 10/15/2024 Patient a pleasant 74-year-old white male who had a slip and fall while shoveling snow he suffered a left femoral neck fracture and is currently awaiting surgery he had a preoperative clearance and evaluation by [facility] and also in my opinion patient is cleared for surgery he is get a sinus bradycardia on his EKG which is normal for him. He does suffer from Parkinson's so concerns about his rehab were discussed. He denies any nausea vomiting diarrhea constipation. He was quite healthy leading up to this unfortunate accident. 10/18/2024 status post left total hip arthroplasty with direct anterior approach on 10/15/2024. Tolerated procedure well. Good diet intake, denies nausea vomiting, consuming 75 to 100%. Passing flatus. Campbell catheter for urinary retention. Afebrile, normal WBC. Hemoglobin 10.3, platelets 182 pain controlled on current regimen. Denies chest pain, palpitations or shortness of breath. Maintaining O2 sats in the mid 90s on room air. Denies l ightheadedness, dizziness or focal deficits. Objective - Vital Signs Vital signs: Vital Signs Temp 98.4 F 10/18/24 07:25 Pulse 79 10/18/24 07:25 Resp 18 10/18/24 07:25 BP 102/64 10/18/24 07:25 Pulse Ox 94 L 10/18/24 07:25 FiO2 Intake & Output 10/17/24 10/18/24 10/18/24 18:59 06:59 18:59 Intake Total 360 Output Total 2500 2200 Balance -2500 -1840 Intake: Oral 360 Output: Urine 2500 2200 Other: Voiding Method Indwelling Catheter Indwelling Catheter - Exam GENERAL: Alert and oriented x3, sitting up in chair ,NAD. HEENT: Normocephalic, atraumatic ,pupils are round and equal, conjunctiva normal CARDIOVASCULAR: S1 and S2 present. No murmurs, rubs, or gallops. PULMONARY: Chest is clear to auscultation, no wheezing or crackles. ABDOMEN: Soft, nontender, nondistended, normoactive bowel sounds. Campbell catheter present. EXTREMITIES: Left lower extremity dressing clean dry and intact minimal edema ,no cyanosis, clubbing, or pedal edema. No calf tenderness. Positive DP pulse. NEUROLOGICAL: Cranial nerves II through XII grossly intact. Parkinson's tremors. SKIN: No rashes, warm and dry. - Labs CBC & Chem 7: 10/18/24 02:47 10/15/24 04:44 Assessment and Plan Assessment: Fracture of left femoral neck status post fall, status post left total hip arthroplasty-anterior Acute urinary retention, Campbell catheter, spontaneous voiding trial pending BPH Postoperative atelectasis, expected outcome History of DVT Osteoarthritis Parkinson's disease Hypertension Hyperlipidemia History of iron deficient anemia Moderate to large hiatal hernia Diverticulosis History of melanoma 30 years ago Plan: Continue on current medication regimen ,monitoring and symptomatic treatment aggressive pulmonary toileting. Pain management, DVT prophylaxis as per primary. PT/OT. Spontaneous voiding trial pending. Aggressive pulmonary toileting with incentive spirometer reinforced. discharge planning in progress as per orthopedic surgery to subacute rehab. Follow-up with PCP in 1 week after discharge from subacute rehab. The impression and plan of care has been dictated as directed. : I performed a history and examination of this patient, discussed the same with the dictator. I agree with the dictator's note ,documented as a scribe. Any additional findings or plans will be noted.
== END 2024-10-18 16:35 | DRG 522 ==
LOC: EC 13:07 → 4SSUR 14:28
PROVIDERS: ADMIT Orthopaedic Surgery; ATTEND Orthopaedic Surgery
PROC: 3E0T3BZ Introduction of Anesthetic Agent into Peripheral Nerves and Plexi, Percutaneous Approach (ICD-10-PCS; 2024-10-15)
PROC: 8E0YXBF Computer Assisted Procedure of Lower Extremity, With Fluoroscopy (ICD-10-PCS; 2024-10-15)
PROC: 0SRB06A Replacement of Left Hip Joint with Oxidized Zirconium on Polyethylene Synthetic Substitute, Uncemented, Open Approach (ICD-10-PCS; principal; 2024-10-15 07:30)
DX: S72.012A Unspecified intracapsular fracture of left femur, initial encounter for closed fracture (principal); D62 Acute posthemorrhagic anemia; G20.A1 Parkinson's disease without dyskinesia, without mention of fluctuations; I10 Essential (primary) hypertension; D50.9 Iron deficiency anemia, unspecified; J98.11 Atelectasis; W00.0XXA Fall on same level due to ice and snow, initial encounter; E78.5 Hyperlipidemia, unspecified; I44.0 Atrioventricular block, first degree; Z85.828 Personal history of other malignant neoplasm of skin; R33.8 Other retention of urine; K44.9 Diaphragmatic hernia without obstruction or gangrene; R00.1 Bradycardia, unspecified; K57.30 Diverticulosis of large intestine without perforation or abscess without bleeding; M19.90 Unspecified osteoarthritis, unspecified site; Z86.718 Personal history of other venous thrombosis and embolism; Z85.820 Personal history of malignant melanoma of skin; Z96.1 Presence of intraocular lens; Z98.42 Cataract extraction status, left eye; Z98.41 Cataract extraction status, right eye; Z87.19 Personal history of other diseases of the digestive system; Y92.008 Other place in unspecified non-institutional (private) residence as the place of occurrence of the external cause
CPT/HCPCS: 36415; 51702; 64999; 71045; 73501; 73502; 80053; 83735; 85025; 85027; 85610; 85730; 93005; 96374; 99285

== ENCOUNTER 2025-01-07 20:32 | Emergency (ER) | payer MEDICARE, OTHER ==
[2025-01-07 20:38] VITALS: RESP 17; TEMP 98.4
[2025-01-07 22:31] LABS: Appearance,Urine Turbid (Clear); Bacteria,Urine Many /hpf; Bilirubin,Urine Negative (Negative); Blood,Urine Large (Negative); Budding Yeast,Urine Many /hpf; Calcium Oxalate Crystals,Urine Many /hpf; Color,Urine Dark Brown; Glucose,Urine (UA) Negative (Negative); Hyaline Casts,Urine 326 /lpf (0-2); Ketones,Urine 1+ (Negative); Leukocyte Esterase,Urine Large (Negative); Mucus,Urine Many /hpf; Nitrite,Urine Positive (Negative); Protein,Urine 2+ (Negative); RBC,Urine >182 /hpf (0-5); Specific Gravity,Urine 1.021 (1.001-1.035); WBC,Urine >182 /hpf (0-5)
--- NOTE | 2025-01-07 22:39 | ED ---
Male Urogenital HPI - General Chief complaint: Urogenital Stated complaint: Urogenital Time Seen by Provider: 01/07/25 22:34 Source: patient, EMS, RN notes reviewed Mode of arrival: EMS Limitations: no limitations - History of Present Illness Initial comments: 74-year-old male presenting for Campbell catheter issue. States he had his Campbell catheter changed today by his urologist. He does admit some tension was placed on the Campbell when the nursing staff was shifting him in the stretcher. States when he got home he noticed there was a small amount of blood on his brief that he believes came from the insertion site of the Campbell. Denies burning, fevers, or itchiness. Denies blood thinners. States he has the Campbell for urinary retention. Campbell continues to drain appropriately. Denies any abdominal or flank pain. - Related Data Home Medications Medication Instructions Recorded Confirmed Carbidopa-Levodopa 25-100 mg 3 tab PO BID@0800,1200 10/14/19 10/14/24 [Sinemet 25-100 mg] Simvastatin [Zocor] 40 mg PO HS 10/14/19 10/14/24 Carbidopa-Levodopa 25-100 mg 2 tab PO BID@1600,2000 10/17/23 10/14/24 [Sinemet 25-100 mg] Escitalopram [Lexapro] 5 mg PO HS 10/17/23 10/14/24 Midodrine HCl [ProAmantine] 2.5 mg PO TID 10/17/23 10/14/24 Doxylamine Succinate [Unisom] 25 mg PO HS 10/14/24 10/14/24 Tamsulosin [Flomax] 0.4 mg PO HS 10/14/24 10/14/24 Previous Rx's Medication Instructions Recorded Acetaminophen Tab [Tylenol] 650 mg PO Q6HR PRN tab 10/18/24 Aspirin 325 mg PO BID #60 tab 10/18/24 HYDROcodone/APAP 5-325MG [[place] 1 - 2 tab PO Q6HR PRN #32 tab 10/18/24 5-325] Sennosides [Senokot] 2 tab PO DAILY PRN #60 tablet 10/18/24 clonazePAM [KlonoPIN] 1 mg PO HS #3 tab 10/18/24 Cephalexin [Keflex] 500 mg PO Q12H 7 Days #14 cap 01/07/25 Allergies Allergy/AdvReac Type Severity Reaction Status Date / Time No Known Allergies Allergy Verified 01/07/25 20:38 Review of Systems ROS Statement: Those systems with pertinent positive or pertinent negative responses have been documented in the HPI. ROS Other: All systems not noted in ROS Statement are negative. Past Medical History Past Medical History: Cancer, Eye Disorder, GI Bleed, Hyperlipidemia, Hypertension, Neurologic Disorder, Osteoarthritis (OA) Additional Past Medical History / Comment(s): Melanoma, bilateral glaucoma, Parkinson's disease, hand tremors, chronic anemia, diverticular disease, rectal bleed in past. History of Any Multi-Drug Resistant Organisms: None Reported Past Surgical History: Hernia Repair, Orthopedic Surgery Additional Past Surgical History / Comment(s): Bilateral inguinal hernia repairs, bilateral rotator cuff surgery, ORIF L ankle, L knee arthroscopy, colonoscopies, bilateral cataract removals/lens implants, skin cancer removal on back. Past Anesthesia/Blood Transfusion Reactions: No Reported Reaction Past Psychological History: No Psychological Hx Reported Smoking Status: Never smoker Past Alcohol Use History: None Reported Past Drug Use History: None Reported - Past Family History Father Family Medical History: Cancer Additional Family Medical History / Comment(s): Lung cancer. Father was a smoker. Mother Family Medical History: Neurologic Disorder Additional Family Medical History / Comment(s): Polio General Exam Limitations: no limitations General appearance: alert, in no apparent distress Head exam: Present: atraumatic, normocephalic, normal inspection GI/Abdominal exam: Present: soft, normal bowel sounds. Absent: distended, tenderness, guarding, rebound, rigid exam: Absent: normal inspection (Indwelling Campbell catheter present. Campbell appears to be draining appropriately. There is a mild amount of dried blood surrounding the tip of the penis and Campbell. Urine light yellow in Campbell bag.), testicular tenderness, urethral discharge, scrotal swelling Back exam: Absent: CVA tenderness (R), CVA tenderness (L) Neurological exam: Present: alert, oriented X3 Psychiatric exam: Present: normal affect, normal mood Skin exam: Present: warm, dry, intact, normal color. Absent: rash Course Vital Signs 01/07/25 20:36 Temperature 98.4 F Pulse Rate 63 Respiratory 17 Rate Blood Pressure 122/67 O2 Sat by Pulse 99 Oximetry Medical Decision Making - Medical Decision Making Was pt. sent in by a medical professional or institution (LENKA Maynard, EDGER SAW OPERATOR, urgent care, hospital, or shelter...) When possible be specific @ -No Did you speak to anyone other than the patient for history (EMS, parent, family, police, friend...)? What history was obtained from this source @ -No Did you review nursing and triage notes (agree or disagree)? Why? @ -I reviewed and agree with nursing and triage notes Were old charts reviewed (outside hosp., previous admission, EMS record, old EKG, old radiological studies, urgent care reports/EKG's, shelter records)? Report findings @ -No old charts were reviewed Differential Diagnosis (chest pain, altered mental status, abdominal pain women, abdominal pain men, vaginal bleeding, weakness, fever, dyspnea, syncope, headache, dizziness, GI bleed, back pain, seizure, CVA, palpatations, mental health, musculoskeletal)? @ -Campbell catheter issue, urinary tract infection, kidney stones, bladder carcinoma EKG interpreted by me (3pts min.). @ -None X-rays interpreted by me (1pt min.). @ -None done CT interpreted by me (1pt min.). @ -None done U/S interpreted by me (1pt. min.). @ -None done What testing was considered but not performed or refused? (CT, X-rays, U/S, labs)? Why? @ -None What meds were considered but not given or refused? Why? @ -None Did you discuss the management of the patient with other professionals (professionals i.e. LENKA Maynard, EDGER SAW OPERATOR, lab, RT, psych nurse, nephrology social worker, label press operator, teacher, eeo officer, patient case coordinator)? Give summary @ -No Was smoking cessation discussed for >3mins.? @ -No Was critical care preformed (if so, how long)? @ -No Were there social determinants of health that impacted care today? How? (Homelessness, low income, unemployed, alcoholism, drug addiction, transportation, low edu. Level, literacy, decrease access to med. care, care home, rehab)? @ -No Was there de-escalation of care discussed even if they declined (Discuss DNR or withdrawal of care, Hospice)? DNR status @ -No What co-morbidities impacted this encounter? (DM, HTN, Smoking, COPD, CAD, Cancer, CVA, ARF, Chemo, Hep., AIDS, mental health diagnosis, sleep apnea, morbid obesity)? @ -None Was patient admitted / discharged? Hospital course, mention meds given and route, prescriptions, significant lab abnormalities, going to OR and other pertinent info. @ -Discharge. 74-year-old male presenting for blood on tip of penis/Campbell catheter status post Campbell catheter change this morning. Patient is currently asymptomatic. Denies abdominal pain, flank pain, or burning. Patient is afebrile with no CVA tenderness. Urinalysis reveals large amount of white blood cells and red blood cells. Patient can be safely discharged home with outpatient antibiotics for urinary tract infection. Patient is agreeable this plan. Advised close follow-up with urology. Appropriate return precautions discussed. Case was discussed with my ED attending Dr. Olmos Undiagnosed new problem with uncertain prognosis? @ -No Drug Therapy requiring intensive monitoring for toxicity (Heparin, Nitro, Insulin, Cardizem)? @ -No Were any procedures done? @ -No Diagnosis/symptom? @ -Urinary tract infection Acute, or Chronic, or Acute on Chronic? @ -Acute Uncomplicated (without systemic symptoms) or Complicated (systemic symptoms)? @ -Uncomplicated Side effects of treatment? @ -No Exacerbation, Progression, or Severe Exacerbation? @ -No Poses a threat to life or bodily function? How? (Chest pain, [place], [place], pneumonia, PE, COPD, DKA, ARF, appy, cholecystitis, CVA, Diverticulitis, Homicidal, Suicidal, threat to staff... and all critical care pts) @ -No - Lab Data Lab Results 01/07/25 Range/Units 21:35 Urine Color Dark Brown Urine Appearance Turbid (Clear) Urine pH 6.0 (5.0-8.0) Ur Specific [place] 1.021 (1.001-1.035) Urine Protein 2+ H (Negative) Urine Glucose (UA) Negative (Negative) Urine Ketones 1+ H (Negative) Urine Blood Large H (Negative) Urine Nitrite Positive (Negative) Urine Bilirubin Negative (Negative) Urine Urobilinogen 2.0 (<2.0) mg/dL Ur Leukocyte Esterase Large H (Negative) Urine RBC >182 H (0-5) /hpf Urine WBC >182 H (0-5) /hpf Urine WBC Clumps Many H (None) /hpf Calcium Oxalate Crystal Many H (None) /hpf Urine Bacteria Many H (None) /hpf Hyaline Casts 326 H (0-2) /lpf Urine Mucus Many H (None) /hpf Urine Yeast (Budding) Many H (None) /hpf Disposition Clinical Impression: Urinary tract infection Disposition: HOME SELF-CARE Condition: Stable Instructions (If sedation given, give patient instructions): Urinary Tract Infection in Men (ED) Additional Instructions: Take Keflex as prescribed for urinary tract infection. Follow-up with urology on Friday. Please return to the Emergency Department if symptoms worsen or any other concerns. Prescriptions: Cephalexin [Keflex] 500 mg PO Q12H 7 Days #14 cap Is patient prescribed a controlled substance at d/c from ED?: No Referrals: Rosales Genao DO [Primary Care Provider] - 1-2 days Time of Disposition: 23:05
[2025-01-07 23:21] VITALS: BP 128/70; PULSE 65
== END 2025-01-07 23:21 | disposition home or self-care (01) ==
LOC: EC 20:32
DX: N39.0 Urinary tract infection, site not specified (principal); B96.89 Other specified bacterial agents as the cause of diseases classified elsewhere
CPT/HCPCS: 81001; 87077; 87086; 87186; 99283

== ENCOUNTER 2025-01-09 09:24 | Emergency (ER) | payer MEDICARE, OTHER ==
[2025-01-09 09:51] VITALS: TEMP 98
[2025-01-09 10:30] VITALS: PULSE 75
--- NOTE | 2025-01-09 10:48 | ED ---
General Adult HPI - General Chief complaint: Urogenital Stated complaint: catheter pulled out Time Seen by Provider: 01/09/25 09:27 Source: patient, RN notes reviewed Mode of arrival: wheelchair - History of Present Illness Initial comments: 74-year-old male presents emergency department chief complaint of Campbell catheter fell out. Patient states he woke up this morning states that his catheter is out he has had a catheter since September secondary to urinary retention after surgery. Patient states he has no abdominal discomfort at this time. - Related Data Home Medications Medication Instructions Recorded Confirmed Carbidopa-Levodopa 25-100 mg 3 tab PO BID@0800,1200 10/14/19 10/14/24 [Sinemet 25-100 mg] Simvastatin [Zocor] 40 mg PO HS 10/14/19 10/14/24 Carbidopa-Levodopa 25-100 mg 2 tab PO BID@1600,2000 10/17/23 10/14/24 [Sinemet 25-100 mg] Escitalopram [Lexapro] 5 mg PO HS 10/17/23 10/14/24 Midodrine HCl [ProAmantine] 2.5 mg PO TID 10/17/23 10/14/24 Doxylamine Succinate [Unisom] 25 mg PO HS 10/14/24 10/14/24 Tamsulosin [Flomax] 0.4 mg PO HS 10/14/24 10/14/24 Previous Rx's Medication Instructions Recorded Acetaminophen Tab [Tylenol] 650 mg PO Q6HR PRN tab 10/18/24 Aspirin 325 mg PO BID #60 tab 10/18/24 HYDROcodone/APAP 5-325MG [[place] 1 - 2 tab PO Q6HR PRN #32 tab 10/18/24 5-325] Sennosides [Senokot] 2 tab PO DAILY PRN #60 tablet 10/18/24 clonazePAM [KlonoPIN] 1 mg PO HS #3 tab 10/18/24 Cephalexin [Keflex] 500 mg PO Q12H 7 Days #14 cap 01/07/25 Allergies Allergy/AdvReac Type Severity Reaction Status Date / Time No Known Allergies Allergy Verified 01/09/25 09:37 Review of Systems ROS Statement: Those systems with pertinent positive or pertinent negative responses have been documented in the HPI. ROS Other: All systems not noted in ROS Statement are negative. Past Medical History Past Medical History: Cancer, Eye Disorder, GI Bleed, Hyperlipidemia, Hypertension, Neurologic Disorder, Osteoarthritis (OA) Additional Past Medical History / Comment(s): Melanoma, bilateral glaucoma, Parkinson's disease, hand tremors, chronic anemia, diverticular disease, rectal bleed in past. Campbell catheter 2024 History of Any Multi-Drug Resistant Organisms: None Reported Past Surgical History: Hernia Repair, Orthopedic Surgery Additional Past Surgical History / Comment(s): Bilateral inguinal hernia repairs, bilateral rotator cuff surgery, ORIF L ankle, L knee arthroscopy, colonoscopies, bilateral cataract removals/lens implants, skin cancer removal on back. Past Anesthesia/Blood Transfusion Reactions: No Reported Reaction Past Psychological History: No Psychological Hx Reported Smoking Status: Never smoker Past Alcohol Use History: Rare Past Drug Use History: None Reported - Past Family History Father Family Medical History: Cancer Additional Family Medical History / Comment(s): Lung cancer. Father was a smoker. Mother Family Medical History: Neurologic Disorder Additional Family Medical History / Comment(s): Polio General Exam Limitations: no limitations General appearance: alert, in no apparent distress Head exam: Present: atraumatic, normocephalic, normal inspection Eye exam: Present: normal appearance, PERRL, EOMI. Absent: scleral icterus, conjunctival injection, periorbital swelling ENT exam: Present: normal exam, normal oropharynx, mucous membranes moist Neck exam: Present: normal inspection, full ROM. Absent: tenderness, meningismus, lymphadenopathy Respiratory exam: Present: normal lung sounds bilaterally. Absent: respiratory distress, wheezes, rales, rhonchi, stridor Cardiovascular Exam: Present: regular rate, normal rhythm, normal heart sounds. Absent: systolic murmur, diastolic murmur, rubs, gallop, clicks GI/Abdominal exam: Present: soft, normal bowel sounds. Absent: distended, tenderness, guarding, rebound, rigid Course Vital Signs 01/09/25 01/09/25 01/09/25 09:31 09:49 10:23 Temperature 97.9 F 98.0 F Pulse Rate 71 76 75 Respiratory 18 18 16 Rate Blood Pressure 81/38 111/79 107/79 O2 Sat by Pulse 98 99 98 Oximetry 01/09/25 11:13 Temperature 98.0 F Pulse Rate 75 Respiratory 18 Rate Blood Pressure 108/88 O2 Sat by Pulse 96 Oximetry Medical Decision Making - Medical Decision Making Was pt. sent in by a medical professional or institution (LENKA Maynard, MANAGER OPERATIONS AND PROCUREMENT, urgent care, hospital, or group home...) When possible be specific @ -No Did you speak to anyone other than the patient for history (EMS, parent, family, police, friend...)? What history was obtained from this source @ -No Did you review nursing and triage notes (agree or disagree)? Why? @ -I reviewed and agree with nursing and triage notes Were old charts reviewed (outside hosp., previous admission, EMS record, old EKG, old radiological studies, urgent care reports/EKG's, group home records)? Report findings @ -No old charts were reviewed Differential Diagnosis (chest pain, altered mental status, abdominal pain women, abdominal pain men, vaginal bleeding, weakness, fever, dyspnea, syncope, headache, dizziness, GI bleed, back pain, seizure, CVA, palpatations, mental health, musculoskeletal)? @ -Urinary retention, dislodged Campbell catheter EKG interpreted by me (3pts min.). @ -None X-rays interpreted by me (1pt min.). @ -None done CT interpreted by me (1pt min.). @ -None done U/S interpreted by me (1pt. min.). @ -None done What testing was considered but not performed or refused? (CT, X-rays, U/S, labs)? Why? @ -None What meds were considered but not given or refused? Why? @ -None Did you discuss the management of the patient with other professionals (professionals i.e. LENKA Maynard, MANAGER OPERATIONS AND PROCUREMENT, lab, RT, psych nurse, social service director, unit aid, teacher, aoc plans intelligence officer, cyanide case hardener)? Give summary @ -No Was smoking cessation discussed for >3mins.? @ -No Was critical care preformed (if so, how long)? @ -No Were there social determinants of health that impacted care today? How? (Homelessness, low income, unemployed, alcoholism, drug addiction, transportation, low edu. Level, literacy, decrease access to med. care, long term, rehab)? @ -No Was there de-escalation of care discussed even if they declined (Discuss DNR or withdrawal of care, Hospice)? DNR status @ -No What co-morbidities impacted this encounter? (DM, HTN, Smoking, COPD, CAD, Cancer, CVA, ARF, Chemo, Hep., AIDS, mental health diagnosis, sleep apnea, morbid obesity)? @ -None Was patient admitted / discharged? Hospital course, mention meds given and route, prescriptions, significant lab abnormalities, going to OR and other pertinent info. @ -Discharge patient presented after dislodged Campbell catheter new catheter was placed without complications by RN. Patient discharged in stable condition with treatment as discussed. Undiagnosed new problem with uncertain prognosis? @ -No Drug Therapy requiring intensive monitoring for toxicity (Heparin, Nitro, Insulin, Cardizem)? @ -No Were any procedures done? @ -No Diagnosis/symptom? @ -Urinary retention, dislodged Campbell catheter Acute, or Chronic, or Acute on Chronic? @ -Acute Uncomplicated (without systemic symptoms) or Complicated (systemic symptoms)? @ -Uncomplicated Side effects of treatment? @ -No Exacerbation, Progression, or Severe Exacerbation? @ -No Poses a threat to life or bodily function? How? (Chest pain, [place], [place], pneumonia, PE, COPD, DKA, ARF, appy, cholecystitis, CVA, Diverticulitis, Homicidal, Suicidal, threat to staff... and all critical care pts) @ -No Disposition Clinical Impression: Urinary retention, Dislodged Campbell catheter Disposition: HOME SELF-CARE Condition: Stable Instructions (If sedation given, give patient instructions): Campbell Catheter Placement and Care (ED) Additional Instructions: Please return to the Emergency Department if symptoms worsen or any other concerns. Is patient prescribed a controlled substance at d/c from ED?: No Referrals: Rosales Genao DO [Primary Care Provider] - 1-2 days Time of Disposition: 11:02
[2025-01-09 11:15] VITALS: BP 108/88; RESP 18
== END 2025-01-09 11:18 | disposition home or self-care (01) ==
LOC: EC 09:24
DX: R33.9 Retention of urine, unspecified (principal); T83.028A Displacement of other urinary catheter, initial encounter
CPT/HCPCS: 51702; 99283

== ENCOUNTER → 2025-01-25 | Outpatient (CLI) | payer MEDICARE, OTHER ==
[2025-01-25 15:09] LABS: ALT 8 U/L (10-49); AST 20 U/L (14-35); Albumin 3.8 g/dL (3.8-4.9); Albumin/Globulin Ratio 1.41 Ratio (1.60-3.17); Alkaline Phosphatase 71 U/L (41-126); Blood Urea Nitrogen 18.8 mg/dL (9.0-27.0); Calcium 9.2 mg/dL (8.7-10.3); Carbon Dioxide 21.7 mmol/L (21.6-31.8); Chloride 107 mmol/L (96-109); Chol/HDL Ratio 2.54 Ratio; Globulin 2.7 g/dL (1.6-3.3); Glucose 84 mg/dL (70-110); LDL Cholesterol,Calculated 53.1 mg/dL (0.0-131.0); Potassium 4.5 mmol/L (3.5-5.5); Prostate Specific Antigen 1.38 ng/mL (0.000-6.500); Sodium 142 mmol/L (135-145); T4, Free (Free Thyroxine) 1.14 ng/dL (0.80-1.80); Total Bilirubin 0.6 mg/dL (0.3-1.2); Total Protein 6.5 g/dL (6.2-8.2)
[2025-01-25 15:10] LABS: Basophils # (A) 0.07 X 10*3/uL (0.00-0.10); Basophils % (A) 1.5 %; Eosinophils % (A) 4.4 %; HCT 36.4 % (39.6-50.0); HGB 10.7 g/dL (13.0-17.0); Lymphocytes # (A) 1.01 X 10*3/uL (0.90-5.00); Lymphocytes % (A) 22.1 %; MCH 24.8 pg (27.0-32.0); MCHC 29.4 g/dL (32.0-37.0); MCV 84.3 FL (80.0-97.0); Mean Platelet Volume 9.4 FL (9.5-12.2); Monocytes # (A) 0.44 X 10*3/uL (0.20-1.00); Monocytes % (A) 9.6 %; NRBC Per 100 WBC 0 X 10*3/uL (0.00-0.01); Neutrophils # (A) 2.85 X 10*3/uL (1.80-7.70); Neutrophils % (A) 62.2 %; Platelet Count 339 X 10*3/uL (140-440); RBC 4.32 X 10*6/uL (4.40-5.60); RDW 21.6 % (11.5-14.5); WBC 4.58 X 10*3/uL (4.50-10.00)
[2025-01-26 19:29] LABS: Appearance,Urine Clear (Clear); Bilirubin,Urine Negative (Negative); Blood,Urine Negative (Negative); Color,Urine Dark Yellow (Yellow); Ketones,Urine Trace (Negative); Nitrite,Urine Negative (Negative); Specific Gravity,Urine 1.016 (1.001-1.030)
[2025-01-26 20:00] LABS: Bacteria,Urine None Seen (None Seen); Calcium Oxalate Crystals,Urine Present (None Seen)
== END | disposition home or self-care (01) ==
LOC: LABWHC1 10:24
PROVIDERS: ATTEND Family Medicine
DX: Z00.00 Encounter for general adult medical examination without abnormal findings (principal); Z12.5 Encounter for screening for malignant neoplasm of prostate; N39.0 Urinary tract infection, site not specified; G20.A1 Parkinson's disease without dyskinesia, without mention of fluctuations; E78.5 Hyperlipidemia, unspecified; E11.9 Type 2 diabetes mellitus without complications
CPT/HCPCS: 36415; 80053; 80061; 81001; 83036; 84153; 84439; 84443; 85025; 87086

== ENCOUNTER 2025-02-04 18:53 | Inpatient (IN) | payer MEDICARE, OTHER ==
--- NOTE | 2025-02-04 19:48 | ED ---
General Adult HPI - General Chief complaint: Dizziness Stated complaint: dizziness hypotensive Time Seen by Provider: 02/04/25 18:54 Source: patient Mode of arrival: EMS Limitations: no limitations - History of Present Illness Initial comments: 74-year-old male with past medical history of Parkinson's, chronic indwelling Zacarias, orthostatic hypotension who presents to the emergency department with near syncope. Patient states that he has a home care nurse that came to see him today. He was reporting that he felt extremely lightheaded like he was going to pass out. She took his blood pressure and found that it was low. He is on midodrine and states that he did take it as directed. He is due for 1 more dose today. Typically he states when he takes his medication he feels better but that was not the case today. He denies any chest pain or shortness of breath. No abdominal pain. No nausea or vomiting. Not currently on any antibiotics but states that he does get frequent urinary tract infections due to his indwelling Zacarias. No fevers. Denies any decreased oral intake. No other alleviating, precipitating or modifying factors - Related Data Home Medications Medication Instructions Recorded Confirmed Carbidopa-Levodopa 25-100 mg 3 tab PO BID@0800,1200 10/14/19 02/05/25 [Sinemet 25-100 mg] Simvastatin [Zocor] 40 mg PO HS 10/14/19 02/05/25 Carbidopa-Levodopa 25-100 mg 2 tab PO BID@1600,2000 10/17/23 02/05/25 [Sinemet 25-100 mg] Escitalopram [Lexapro] 5 mg PO HS 10/17/23 02/05/25 Midodrine HCl [ProAmantine] 2.5 mg PO TID 10/17/23 02/05/25 Tamsulosin [Flomax] 0.4 mg PO BID 10/14/24 02/05/25 Dakins 0.25% Solution 1 applic TOPICAL DIRECTED PRN 02/05/25 02/05/25 Ferrous Sulfate [Feosol] 325 mg PO DAILY 02/05/25 02/05/25 HYDROcodone/APAP 5-325MG [[place] 0.5 tab PO Q6H PRN 02/05/25 02/05/25 5-325] HYDROcodone/APAP 5-325MG [[place] 1 tab PO BID PRN 02/05/25 02/05/25 5-325] Lactulose 20 gm PO DAILY 02/05/25 02/05/25 Sodium Chloride [Saline Wound Wash] 1 dose TOPICAL DIRECTED PRN 02/05/25 02/05/25 Spironolactone [Aldactone] 12.5 mg PO DAILY 02/05/25 02/05/25 clonazePAM [KlonoPIN] 1 mg PO DAILY PRN 02/05/25 02/05/25 polyethylene glycoL 3350 [Miralax] 17 gm PO DAILY 02/05/25 02/05/25 Previous Rx's Medication Instructions Recorded Acetaminophen Tab [Tylenol] 650 mg PO Q6HR PRN tab 10/18/24 Aspirin 325 mg PO BID #60 tab 10/18/24 Allergies Allergy/AdvReac Type Severity Reaction Status Date / Time No Known Allergies Allergy Verified 02/05/25 09:06 Review of Systems ROS Statement: Those systems with pertinent positive or pertinent negative responses have been documented in the HPI. ROS Other: All systems not noted in ROS Statement are negative. Past Medical History Past Medical History: Cancer, Eye Disorder, GI Bleed, Hyperlipidemia, Hypertension, Neurologic Disorder, Osteoarthritis (OA) Additional Past Medical History / Comment(s): Melanoma, bilateral glaucoma, Parkinson's disease, hand tremors, chronic anemia, diverticular disease, rectal bleed in past. Zacarias catheter 2024 History of Any Multi-Drug Resistant Organisms: None Reported Past Surgical History: Hernia Repair, Orthopedic Surgery Additional Past Surgical History / Comment(s): Bilateral inguinal hernia repairs, bilateral rotator cuff surgery, ORIF L ankle, L knee arthroscopy, colonoscopies, bilateral cataract removals/lens implants, skin cancer removal on back. Past Anesthesia/Blood Transfusion Reactions: No Reported Reaction Past Psychological History: No Psychological Hx Reported Smoking Status: Never smoker Past Alcohol Use History: Rare Past Drug Use History: None Reported - Past Family History Father Family Medical History: Cancer Additional Family Medical History / Comment(s): Lung cancer. Father was a smoker. Mother Family Medical History: Neurologic Disorder Additional Family Medical History / Comment(s): Polio General Exam Limitations: no limitations General appearance: alert, other (tremor) Head exam: Present: atraumatic, normocephalic, normal inspection Eye exam: Present: normal appearance, PERRL, EOMI. Absent: scleral icterus, conjunctival injection, periorbital swelling ENT exam: Present: normal exam, mucous membranes moist Neck exam: Present: normal inspection. Absent: tenderness, meningismus, lymp hadenopathy Respiratory exam: Present: normal lung sounds bilaterally. Absent: respiratory distress, wheezes, rales, rhonchi, stridor Cardiovascular Exam: Present: regular rate, normal rhythm, normal heart sounds. Absent: systolic murmur, diastolic murmur, rubs, gallop, clicks GI/Abdominal exam: Present: soft, normal bowel sounds. Absent: distended, tenderness, guarding, rebound, rigid Extremities exam: Present: normal inspection, full ROM, normal capillary refill. Absent: tenderness, pedal edema, joint swelling, calf tenderness Back exam: Present: normal inspection Neurological exam: Present: alert, oriented X3, CN II-XII intact Psychiatric exam: Present: normal affect, normal mood Skin exam: Present: warm, dry, intact, normal color. Absent: rash Course Vital Signs 02/04/25 02/04/25 02/04/25 18:55 21:26 21:55 Temperature 97.9 F Pulse Rate 63 53 L Pulse Rate [ 59 L Sitting] Pulse Rate [ 57 L Standing] Pulse Rate [ 54 L Supine] Respiratory 16 17 Rate Blood Pressure 129/73 132/69 Blood Pressure 148/80 [Sitting] Blood Pressure 82/52 [Standing] Blood Pressure 132/70 [Supine] O2 Sat by Pulse 99 99 Oximetry 02/04/25 02/05/25 02/05/25 22:31 01:00 04:00 Temperature Pulse Rate 58 L 60 58 L Pulse Rate [ Sitting] Pulse Rate [ Standing] Pulse Rate [ Supine] Respiratory 18 16 16 Rate Blood Pressure 105/66 124/76 123/76 Blood Pressure [Sitting] Blood Pressure [Standing] Blood Pressure [Supine] O2 Sat by Pulse 98 98 96 Oximetry 02/05/25 02/05/25 02/05/25 06:14 07:00 08:00 Temperature Pulse Rate 59 L 55 L 70 Pulse Rate [ Sitting] Pulse Rate [ Standing] Pulse Rate [ Supine] Respiratory 16 18 18 Rate Blood Pressure 116/66 121/68 121/81 Blood Pressure [Sitting] Blood Pressure [Standing] Blood Pressure [Supine] O2 Sat by Pulse 98 97 97 Oximetry 02/05/25 02/05/25 02/05/25 09:00 11:30 11:34 Temperature Pulse Rate 75 Pulse Rate [ 72 Sitting] Pulse Rate [ Standing] Pulse Rate [ 61 Supine] Respiratory 17 Rate Blood Pressure 100/65 Blood Pressure 103/65 [Sitting] Blood Pressure [Standing] Blood Pressure 108/69 [Supine] O2 Sat by Pulse 98 Oximetry 02/05/25 02/05/25 02/05/25 11:36 11:51 15:39 Temperature 97.8 F Pulse Rate 61 70 Pulse Rate [ Sitting] Pulse Rate [ 73 Standing] Pulse Rate [ Supine] Respiratory 20 18 Rate Blood Pressure 116/76 139/81 Blood Pressure [Sitting] Blood Pressure 75/52 [Standing] Blood Pressure [Supine] O2 Sat by Pulse 97 98 Oximetry Medical Decision Making - Medical Decision Making Was pt. sent in by a medical professional or institution (, PA, IMPREGNATOR HELPER, urgent care, hospital, or [facility]...) When possible be specific @ -No Did you speak to anyone other than the patient for history (EMS, parent, family, police, friend...)? What history was obtained from this source @ -spoke with ems and daughter for history Did you review nursing and triage notes (agree or disagree)? Why? @ -I reviewed and agree with nursing and triage notes Were old charts reviewed (outside hosp., previous admission, EMS record, old EKG, old radiological studies, urgent care reports/EKG's, [facility] records)? Report findings @ -No old charts were reviewed Differential Diagnosis (chest pain, altered mental status, abdominal pain women, abdominal pain men, vaginal bleeding, weakness, fever, dyspnea, syncope, headache, dizziness, GI bleed, back pain, seizure, CVA, palpatations, mental health, musculoskeletal)? @ -Differential Dizziness: Benign paroxysmal positional Vertigo, Meniere's disease, otitis media, acoustic neuroma, vertebrobasilar insufficiency, cerebellar stroke, encephalitis, hypovolemic, arrhythmia, coronary artery syndrome, anemia, this is not meant to be an all-inclusive list EKG interpreted by me (3pts min.). @ -Yes and demonstrates sinus bradycardia with occasional PACs. Rate of 53. TN interval 163. QRS 93. QTc of 396. No acute ST segment elevations or depressions X-rays interpreted by me (1pt min.). @ -Yes and demonstrates no acute process CT interpreted by me (1pt min.). @ -None done U/S interpreted by me (1pt. min.). @ -None done What testing was considered but not performed or refused? (CT, X-rays, U/S, labs)? Why? @ -None What meds were considered but not given or refused? Why? @ -None Did you discuss the management of the patient with other professionals (professionals i.e. DrMary, PA, IMPREGNATOR HELPER, lab, RT, psych nurse, certified social workers in health care, turn out worker, teacher, president and chief operating officer, counter caser)? Give summary @ -Spoke with Dr. Zuniga for admission Was smoking cessation discussed for >3mins.? @ -No Was critical care preformed (if so, how long)? @ -No Were there social determinants of health that impacted care today? How? (Homelessness, low income, unemployed, alcoholism, drug addiction, transportation, low edu. Level, literacy, decrease access to med. care, correction, rehab)? @ -No Was there de-escalation of care discussed even if they declined (Discuss DNR or withdrawal of care, Hospice)? DNR status @ -No What co-morbidities impacted this encounter? (DM, HTN, Smoking, COPD, CAD, Cancer, CVA, ARF, Chemo, Hep., AIDS, mental health diagnosis, sleep apnea, morbid obesity)? @ -parkinsons, orthostatic hypotension Was patient admitted / discharged? Hospital course, mention meds given and route, prescriptions, significant lab abnormalities, going to OR and other pertinent info. @ -Upon arrival patient seen and evaluated in bed trauma 1. Thorough history and physical exam was performed. IV access was established. Patient was given a 500 cc bolus. Laboratory studies are conducted. Urinalysis was sent which demonstrates abnormal UA. Patient initiated on antibiotics. He was given his midodrine. He does have stable blood pressures in the emergency department. I recommended admission for which he was agreeable. Spoke with Dr. Zuniga for the admission Undiagnosed new problem with uncertain prognosis? @ -No Drug Therapy requiring intensive monitoring for toxicity (Heparin, Nitro, Insulin, Cardizem)? @ -No Were any procedures done? @ -No Diagnosis/symptom? @ -acute hypotension, hx orthostatic hypotension, abn ua, chronic indwelling zacarias Acute, or Chronic, or Acute on Chronic? @ -Acute on chronic Uncomplicated (without systemic symptoms) or Complicated (systemic symptoms)? @ -Complicated Side effects of treatment? @ -No Exacerbation, Progression, or Severe Exacerbation? @ -No Poses a threat to life or bodily function? How? (Chest pain, [place], [place], pneumonia, PE, COPD, DKA, ARF, appy, cholecystitis, CVA, Diverticulitis, Homicidal, Suicidal, threat to staff... and all critical care pts) @ -No - Lab Data Result diagrams: 02/05/25 07:24 02/05/25 07:24 Lab Results 02/04/25 02/04/25 02/04/25 Range/Units 19:46 19:46 19:46 WBC 4.18 L (4.50-10.00) 10*3/uL RBC 4.43 (4.40-5.60) 10*6/uL Hgb 11.4 L (13.0-17.0) g/dL Hct 35.8 L (39.6-50.0) % MCV 80.8 (80.0-97.0) fL MCH 25.7 L (27.0-32.0) pg MCHC 31.8 L (32.0-37.0) g/dL Plt Count 284 (140-440) 10*3/uL MPV 8.9 L (9.5-12.2) fL Immature Gran % (Auto) 0.2 % Neutrophils % 57.3 % Lymphocytes % 25.8 % Monocytes % 11.2 % Eosinophils % 3.8 % Basophils % 1.7 % Immature Gran # 0.01 (0.00-0.04) 10*3/uL Neutrophils # 2.39 (1.80-7.70) 10*3/uL Lymphocytes # 1.08 (0.90-5.00) 10*3/uL Monocytes # 0.47 (0.20-1.00) 10*3/uL Eosinophils # 0.16 (0.04-0.35) 10*3/uL Basophils # 0.07 (0.00-0.10) 10*3/uL Sodium 140 (137-145) mmol/L Potassium 4.7 (3.5-5.1) mmol/L Chloride 105 (98-107) mmol/L Carbon Dioxide 26 (22-30) mmol/L Anion Gap 9 mmol/L BUN 18 (9-20) mg/dL Creatinine 0.79 (0.66-1.25) mg/dL Est GFR (CKD-EPI)AfAm >90 (>60 ml/min/1.73 sqM) Est GFR (CKD-EPI)NonAf 88 (>60 ml/min/1.73 sqM) Glucose 84 (74-99) mg/dL Plasma Lactic Acid Chris 1.1 (0.7-2.0) mmol/L Calcium 9.1 (8.4-10.2) mg/dL Magnesium 2.1 (1.6-2.3) mg/dL Total Bilirubin 0.8 (0.2-1.3) mg/dL AST 25 (17-59) U/L ALT 7 (4-49) U/L Alkaline Phosphatase 59 (38-126) U/L Troponin I (0.000-0.034) ng/mL NT-Pro-B Natriuret Pep 953 pg/mL Total Protein 7.1 (6.3-8.2) g/dL Albumin 3.9 (3.5-5.0) g/dL Urine Color Urine Appearance (Clear) Urine pH (5.0-8.0) Ur Specific [place] (1.001-1.035) Urine Protein (Negative) Urine Glucose (UA) (Negative) Urine Ketones (Negative) Urine Blood (Negative) Urine Nitrite (Negative) Urine Bilirubin (Negative) Urine Urobilinogen (<2.0) mg/dL Ur Leukocyte Esterase (Negative) Urine RBC (0-5) /hpf Urine WBC (0-5) /hpf Urine Bacteria (None) /hpf Urine Mucus (None) /hpf 02/04/25 02/04/25 Range/Units 19:46 20:07 WBC (4.50-10.00) 10*3/uL RBC (4.40-5.60) 10*6/uL Hgb (13.0-17.0) g/dL Hct (39.6-50.0) % MCV (80.0-97.0) fL MCH (27.0-32.0) pg MCHC (32.0-37.0) g/dL Plt Count (140-440) 10*3/uL MPV (9.5-12.2) fL Immature Gran % (Auto) % Neutrophils % % Lymphocytes % % Monocytes % % Eosinophils % % Basophils % % Immature Gran # (0.00-0.04) 10*3/uL Neutrophils # (1.80-7.70) 10*3/uL Lymphocytes # (0.90-5.00) 10*3/uL Monocytes # (0.20-1.00) 10*3/uL Eosinophils # (0.04-0.35) 10*3/uL Basophils # (0.00-0.10) 10*3/uL Sodium (137-145) mmol/L Potassium (3.5-5.1) mmol/L Chloride (98-107) mmol/L Carbon Dioxide (22-30) mmol/L Anion Gap mmol/L BUN (9-20) mg/dL Creatinine (0.66-1.25) mg/dL Est GFR (CKD-EPI)AfAm (>60 ml/min/1.73 sqM) Est GFR (CKD-EPI)NonAf (>60 ml/min/1.73 sqM) Glucose (74-99) mg/dL Plasma Lactic Acid Chris (0.7-2.0) mmol/L Calcium (8.4-10.2) mg/dL Magnesium (1.6-2.3) mg/dL Total Bilirubin (0.2-1.3) mg/dL AST (17-59) U/L ALT (4-49) U/L Alkaline Phosphatase (38-126) U/L Troponin I <0.012 (0.000-0.034) ng/mL NT-Pro-B Natriuret Pep pg/mL Total Protein (6.3-8.2) g/dL Albumin (3.5-5.0) g/dL Urine Color Yellow Urine Appearance Cloudy (Clear) Urine pH 6.5 (5.0-8.0) Ur Specific [place] 1.018 (1.001-1.035) Urine Protein 1+ H (Negative) Urine Glucose (UA) Negative (Negative) Urine Ketones Trace H (Negative) Urine Blood Small H (Negative) Urine Nitrite Positive (Negative) Urine Bilirubin Negative (Negative) Urine Urobilinogen 2.0 (<2.0) mg/dL Ur Leukocyte Esterase Large H (Negative) Urine RBC 14 H (0-5) /hpf Urine WBC >182 H (0-5) /hpf Urine Bacteria Moderate H (None) /hpf Urine Mucus Rare H (None) /hpf Disposition Clinical Impression: Orthostatic hypotension, Abnormal urinalysis Disposition: ADMITTED IP TO THIS [facility] Condition: Stable Is patient prescribed a controlled substance at d/c from ED?: No Time of Disposition: 22:56 Decision to Admit Reason: Admit from EC Decision Date: 02/04/25 Decision Time: 22:56
[2025-02-04 19:53] LABS: Basophils # (A) 0.07 10*3/uL (0.00-0.10); Basophils % (A) 1.7 %; Eosinophils # (A) 0.16 10*3/uL (0.04-0.35); Eosinophils % (A) 3.8 %; HCT 35.8 % (39.6-50.0); HGB 11.4 g/dL (13.0-17.0); Lymphocytes # (A) 1.08 10*3/uL (0.90-5.00); Lymphocytes % (A) 25.8 %; MCH 25.7 pg (27.0-32.0); MCHC 31.8 g/dL (32.0-37.0); MCV 80.8 fL (80.0-97.0); Mean Platelet Volume 8.9 fL (9.5-12.2); Monocytes # (A) 0.47 10*3/uL (0.20-1.00); Monocytes % (A) 11.2 %; Neutrophils # (A) 2.39 10*3/uL (1.80-7.70); Neutrophils % (A) 57.3 %; Platelet Count 284 10*3/uL (140-440); RBC 4.43 10*6/uL (4.40-5.60); RDW 21.2 % (11.5-14.5); WBC 4.18 10*3/uL (4.50-10.00)
[2025-02-04 20:07] LABS: ALT 7 U/L (4-49); AST 25 U/L (17-59); African American GFR (CKD) >90 (>60 ml/min/1.73 sqM); Albumin 3.9 g/dL (3.5-5.0); Alkaline Phosphatase 59 U/L (38-126); Anion Gap 9 mmol/L; Blood Urea Nitrogen 18 mg/dL (9-20); Calcium 9.1 mg/dL (8.4-10.2); Carbon Dioxide 26 mmol/L (22-30); Chloride 105 mmol/L (98-107); Glucose 84 mg/dL (74-99); Magnesium 2.1 mg/dL (1.6-2.3); Non-African American GFR(CKD) 88 (>60 ml/min/1.73 sqM); Potassium 4.7 mmol/L (3.5-5.1); Sodium 140 mmol/L (137-145); Total Bilirubin 0.8 mg/dL (0.2-1.3); Total Protein 7.1 g/dL (6.3-8.2)
--- NOTE | 2025-02-04 20:14 | XR ---
EXAMINATION TYPE: XR chest 2V DATE OF EXAM: 02/04/2025 8:01 PM COMPARISON: Previous chest radiograph 10/14/2024. CLINICAL INDICATION: Male, 74 years old with history of Weakness; [facility] TECHNIQUE: XR chest 2V Frontal and lateral views of the chest. FINDINGS: Cardiac silhouette is stable. No acute focal consolidation. No pleural effusion. Asymmetric elevation of the right hemidiaphragm. No pneumothorax. No acute osseous abnormality. IMPRESSION: No acute cardiopulmonary disease/process. [facility], , 02/04/2025 8:11 PM
[2025-02-04 20:15] LABS: NT-Pro-B-Type Natriuretic Pept 953 pg/mL
[2025-02-04] MEDS: LACTATED RINGERS 500 ML IV ONE (20:22)
[2025-02-04 20:51] LABS: Appearance,Urine Cloudy (Clear); Bacteria,Urine Moderate /hpf; Bilirubin,Urine Negative (Negative); Blood,Urine Small (Negative); Color,Urine Yellow; Glucose,Urine (UA) Negative (Negative); Ketones,Urine Trace (Negative); Leukocyte Esterase,Urine Large (Negative); Mucus,Urine Rare /hpf; Nitrite,Urine Positive (Negative); PH, Urine 6.5 (5.0-8.0); Protein,Urine 1+ (Negative); RBC,Urine 14 /hpf (0-5); Specific Gravity,Urine 1.018 (1.001-1.035); WBC,Urine >182 /hpf (0-5)
[2025-02-04] MEDS ORDERED: ACETAMINOPHEN TAB 325 MG TAB PO PRN (22:00)
[2025-02-04] MEDS ORDERED: NON FORMULARY DRUG (Doxylamine Succinate [Unisom] 25 MG Tablet) PO SCH (22:15)
[2025-02-04] MEDS: TAMSULOSIN 0.4 MG CAP.ER.24H PO SCH (22:24)
[2025-02-04] MEDS: CARBIDOPA-LEVODOPA 25-100 MG 1 EACH TAB PO STA (22:24)
[2025-02-04] MEDS: HYDROcodone/APAP 5-325MG 1 EACH TAB PO STA (22:25)
[2025-02-04] MEDS: ATORVASTATIN 20 MG TAB PO SCH (22:25)
[2025-02-04] MEDS: clonazePAM 1 MG TAB PO SCH (22:25)
[2025-02-04] MEDS: MIDODRINE 5 MG TAB PO STA (22:26)
[2025-02-04] MEDS: ESCITALOPRAM 5 MG TAB PO SCH (22:26)
[2025-02-04] MEDS: ASPIRIN 325 MG TAB PO SCH (22:27)
[2025-02-04] MEDS ORDERED: NALOXONE 0.4 MG/ML 1 ML VIAL IV PRN (23:00)
[2025-02-05] MEDS: SODIUM CHLORIDE 0.9% 1,000 ML IV SCH (01:37)
[2025-02-05] MEDS: cefTRIAXone IN SWFI 1,000 MG/10 ML SYRINGE IVP STA (01:39)
[2025-02-05 07:44] LABS: Basophils # (A) 0.07 10*3/uL (0.00-0.10); Basophils % (A) 2.2 %; Eosinophils # (A) 0.22 10*3/uL (0.04-0.35); Eosinophils % (A) 6.9 %; HCT 32.6 % (39.6-50.0); HGB 10.2 g/dL (13.0-17.0); Lymphocytes # (A) 1.03 10*3/uL (0.90-5.00); Lymphocytes % (A) 32.5 %; MCH 25.5 pg (27.0-32.0); MCHC 31.3 g/dL (32.0-37.0); MCV 81.5 fL (80.0-97.0); Mean Platelet Volume 8.7 fL (9.5-12.2); Monocytes # (A) 0.45 10*3/uL (0.20-1.00); Monocytes % (A) 14.2 %; Neutrophils % (A) 44.2 %; Platelet Count 249 10*3/uL (140-440); RDW 21.3 % (11.5-14.5); WBC 3.17 10*3/uL (4.50-10.00)
[2025-02-05 07:59] LABS: African American GFR (CKD) >90 (>60 ml/min/1.73 sqM); Anion Gap 5 mmol/L; Blood Urea Nitrogen 12 mg/dL (9-20); Calcium 8.7 mg/dL (8.4-10.2); Carbon Dioxide 26 mmol/L (22-30); Chloride 107 mmol/L (98-107); Glucose 87 mg/dL (74-99); Non-African American GFR(CKD) >90 (>60 ml/min/1.73 sqM); Potassium 3.9 mmol/L (3.5-5.1); Sodium 138 mmol/L (137-145)
[2025-02-05] MEDS ORDERED: HYDROcodone/APAP 5-325MG 1 EACH TAB PO PRN (10:01)
[2025-02-05] MEDS: FERROUS SULFATE 325 MG TAB PO SCH (11:38)
--- NOTE | 2025-02-05 12:23 | P.HPIM ---
History of Present Illness H&P Date: 02/05/25 History of present illness; patient is 75-year-old gentleman with past medical history significant for parkinsonism, orthostatic hypotension who presented to the ER because of a near syncopal episode. Patient is resident of [facility] and was sent in for dizziness and a near syncopal episode. Patient was complaining of dizziness yesterday, patient has a home care nurse that normally follows up on him. Yesterday when she took his blood pressure it was found to be low. Patient is chronically on midodrine. Patient denies any fever or chills. Patient has been complaining of the lethargy and weakness. There is no complaint of chest pain. There is no complaint of palpitation. There is no complaint orthopnea or PND. Patient has a chronic Campbell because of this dizziness patient came to the ER Initial lab work done in the ER showed WBC 4.18, hemoglobin 11.4, platelet count 284, sodium 140, potassium 4.7, BUN 18, creatinine 0.79, glucose 84, lactate 1.1, bilirubin 0.8, AST 25, ALT 27, troponin 0.012 UA done showed urine nitrite positive, large amount of leukocyte Estrace, urine WBCs 182 EKG done in the ER showed heart rate of 53, no ST segment elevation or depression seen, no T-wave inversions seen. Chest x-ray done in the ER showed no acute cardiopulmonary process Patient admitted to internal medicine service REVIEW OF SYSTEMS: CONSTITUTIONAL: No fever, no malaise, no fatigue. HEENT: No recent visual problems or hearing problems. Denied any sore throat. CARDIOVASCULAR: As mentioned above PULMONARY: As mentioned above GASTROINTESTINAL: No diarrhea, no nausea, no vomiting, no abdominal pain. NEUROLOGICAL: No headaches, no weakness, no numbness. HEMATOLOGICAL: Denies any bleeding or petechiae. GENITOURINARY: Denies any burning micturition, frequency, or urgency. MUSCULOSKELETAL/RHEUMATOLOGICAL: Denies any joint pain, swelling, or any muscle pain. ENDOCRINE: Denies any polyuria or polydipsia. The rest of the 14-point review of systems is negative. PHYSICAL EXAMINATION: GENERAL: The patient is alert and oriented x3, not in any acute distress. Well developed, well nourished. HEENT: Pupils are round and equally reacting to light. EOMI. No scleral icterus. No conjunctival pallor. Normocephalic, atraumatic. No pharyngeal erythema. No thyromegaly. CARDIOVASCULAR: S1 and S2 present. No murmurs, rubs, or gallops. PULMONARY: Chest is clear to auscultation, no wheezing or crackles. ABDOMEN: Soft, nontender, nondistended, normoactive bowel sounds. No palpable organomegaly. MUSCULOSKELETAL: No joint swelling or deformity. EXTREMITIES: No cyanosis, clubbing, or pedal edema. NEUROLOGICAL: Gross neurological examination did not reveal any focal deficits. SKIN: No rashes. Assessment and plan UTI Near syncope History of parkinsonism History of hypertension history of hyperlipidemia History of BPH Monitor vital signs Monitor CBC Monitor CMP Continue telemetry monitoring Trend troponin Check orthostatic Ordered D-dimer Order urine cultures Start IV Rocephin Continue IV hydration Resume home meds Consult ID Labs and medication were reviewed.. Continue same treatment. Continue with symptomatic treatment. Resume home medication. Monitor labs and vitals. DVT and GI prophylaxis. Further recommendations as per clinical course of the patient Dictation was produced using [employer] dictation software. please excuse any grammatical, word or spelling errors. Past Medical History Past Medical History: Cancer, Eye Disorder, GI Bleed, Hyperlipidemia, Hypertension, Neurologic Disorder, Osteoarthritis (OA) Additional Past Medical History / Comment(s): Melanoma, bilateral glaucoma, Parkinson's disease, hand tremors, chronic anemia, diverticular disease, rectal bleed in past. Campbell catheter 2024 History of Any Multi-Drug Resistant Organisms: None Reported Past Surgical History: Hernia Repair, Orthopedic Surgery Additional Past Surgical History / Comment(s): Bilateral inguinal hernia repa irs, bilateral rotator cuff surgery, ORIF L ankle, L knee arthroscopy, colonoscopies, bilateral cataract removals/lens implants, skin cancer removal on back. Past Anesthesia/Blood Transfusion Reactions: No Reported Reaction Past Psychological History: No Psychological Hx Reported Smoking Status: Never smoker Past Alcohol Use History: Rare Past Drug Use History: None Reported - Past Family History Father Family Medical History: Cancer Additional Family Medical History / Comment(s): Lung cancer. Father was a smoker. Mother Family Medical History: Neurologic Disorder Additional Family Medical History / Comment(s): Polio Medications and Allergies Home Medications Medication Instructions Recorded Confirmed Type Carbidopa-Levodopa 25-100 mg 3 tab PO BID@0800,1200 10/14/19 02/05/25 History [Sinemet 25-100 mg] Simvastatin [Zocor] 40 mg PO HS 10/14/19 02/05/25 History Carbidopa-Levodopa 25-100 mg 2 tab PO BID@1600,2000 10/17/23 02/05/25 History [Sinemet 25-100 mg] Escitalopram [Lexapro] 5 mg PO HS 10/17/23 02/05/25 History Midodrine HCl [ProAmantine] 2.5 mg PO TID 10/17/23 02/05/25 History Tamsulosin [Flomax] 0.4 mg PO BID 10/14/24 02/05/25 History Acetaminophen Tab [Tylenol] 650 mg PO Q6HR PRN tab 10/18/24 02/05/25 Rx Aspirin 325 mg PO BID #60 tab 10/18/24 02/05/25 Rx Dakins 0.25% Solution 1 applic TOPICAL DIRECTED PRN 02/05/25 02/05/25 History Ferrous Sulfate [Feosol] 325 mg PO DAILY 02/05/25 02/05/25 History HYDROcodone/APAP 5-325MG [[place] 0.5 tab PO Q6H PRN 02/05/25 02/05/25 History 5-325] HYDROcodone/APAP 5-325MG [[place] 1 tab PO BID PRN 02/05/25 02/05/25 History 5-325] Lactulose 20 gm PO DAILY 02/05/25 02/05/25 History Sodium Chloride [Saline Wound Wash] 1 dose TOPICAL DIRECTED PRN 02/05/25 02/05/25 History Spironolactone [Aldactone] 12.5 mg PO DAILY 02/05/25 02/05/25 History clonazePAM [KlonoPIN] 1 mg PO DAILY PRN 02/05/25 02/05/25 History polyethylene glycoL 3350 [Miralax] 17 gm PO DAILY 02/05/25 02/05/25 History Allergies Allergy/AdvReac Type Severity Reaction Status Date / Time No Known Allergies Allergy Verified 02/05/25 09:06 Physical Exam Vitals: Vital Signs Temp Pulse Pulse Pulse Pulse Resp BP 02/05/25 06:14 59 L 16 116/66 02/05/25 04:00 58 L 16 123/76 02/05/25 01:00 60 16 124/76 02/04/25 22:31 58 L 18 105/66 02/04/25 21:55 53 L 17 132/69 02/04/25 21:26 59 L 57 L 54 L 02/04/25 18:55 97.9 F 63 16 129/73 BP BP BP Pulse Ox 02/05/25 06:14 98 02/05/25 04:00 96 02/05/25 01:00 98 02/04/25 22:31 98 02/04/25 21:55 99 02/04/25 21:26 148/80 82/52 132/70 02/04/25 18:55 99 Intake and Output 02/04/25 02/05/25 02/05/25 22:59 06:59 14:59 Output Total 1300 Balance -1300 Output: Urine 1300 Other: Weight 79.379 kg Results CBC & Chem 7: 02/05/25 07:24 02/05/25 07:24 Labs: Abnormal Lab Results - Last 24 Hours (Table) 02/04/25 02/04/25 02/05/25 Range/Units 19:46 20:07 07:24 WBC 4.18 L 3.17 L (4.50-10.00) 10*3/uL RBC 4.00 L (4.40-5.60) 10*6/uL Hgb 11.4 L 10.2 L (13.0-17.0) g/dL Hct 35.8 L 32.6 L (39.6-50.0) % MCH 25.7 L 25.5 L (27.0-32.0) pg MCHC 31.8 L 31.3 L (32.0-37.0) g/dL MPV 8.9 L 8.7 L (9.5-12.2) fL Neutrophils # 1.40 L (1.80-7.70) 10*3/uL Creatinine (0.66-1.25) mg/dL Urine Protein 1+ H (Negative) Urine Ketones Trace H (Negative) Urine Blood Small H (Negative) Ur Leukocyte Esterase Large H (Negative) Urine RBC 14 H (0-5) /hpf Urine WBC >182 H (0-5) /hpf Urine Bacteria Moderate H (None) /hpf Urine Mucus Rare H (None) /hpf 02/05/25 Range/Units 07:24 WBC (4.50-10.00) 10*3/uL RBC (4.40-5.60) 10*6/uL Hgb (13.0-17.0) g/dL Hct (39.6-50.0) % MCH (27.0-32.0) pg MCHC (32.0-37.0) g/dL MPV (9.5-12.2) fL Neutrophils # (1.80-7.70) 10*3/uL Creatinine 0.60 L (0.66-1.25) mg/dL Urine Protein (Negative) Urine Ketones (Negative) Urine Blood (Negative) Ur Leukocyte Esterase (Negative) Urine RBC (0-5) /hpf Urine WBC (0-5) /hpf Urine Bacteria (None) /hpf Urine Mucus (None) /hpf
--- NOTE | 2025-02-05 12:30 | CT ---
EXAMINATION TYPE: CT chest angio for PE DATE OF EXAM: 02/05/2025 COMPARISON: None CLINICAL INDICATION: Male, 75 years old with history of Elevated Dimer; PHH, Elevated D-dimer., SOB o r PAIN TECHNIQUE: Ct angiogram of the chest performed with with IV Contrast, patient injected with 100 ml mL of Isovue 370. MIP images are created and reviewed. CT DLP: 442.[address] CTDI: mGy Automated exposure control for dose reduction was used. FINDINGS: The great vessels of the chest are normal. There are no filling defects within the pulmonary arterial circulation to suggest pulmonary embolism. No mediastinal, hilar or axillary adenopathy. There is an intrathoracic stomach. There is no suspicious lung mass or nodule. There is no airspace consolidation There are scattered mild interstitial densities primarily in the lower lobe. There is a localized are a of mild pleural thickening in the right lung base laterally. There is mild right lower lobe bronchi ectasis0. Limited scanning through the upper abdomen shows no gross anomaly. There are no focal osseous lesions. IMPRESSION: 1. No evidence of pulmonary embolism. 2. No acute cardiopulmonary disease. 3. Mild chronic lung changes within the lung bases described above. 4. intrathoracic stomach [facility], , 02/05/2025 12:27 PM
[2025-02-06] MEDS: ASPIRIN 325 MG TAB PO SCH (09:34)
[2025-02-06] MEDS: LACTULOSE 20 GM/30 ML CUP PO SCH (09:34)
--- NOTE | 2025-02-06 10:47 | P.CONS ---
History of Present Illness - Reason for Consult Consult date: 02/05/25 Catheter associated UTI Requesting physician: Joel Quiles - Chief Complaint Weakness x 1 day - History of Present Illness Patient is a 75-year-old male with a past medical history significant for hypertension hyperlipidemia osteoarthritis Parkinson disease did have urinary retention requiring indwelling Campbell catheter presenting to the hospital with weakness and near syncopal episode patient was noticed to be extremely lightheaded and was about to pass out as reported by the home care nurse and was noticed to have a low blood pressure with the patient was advised to go to the hospital patient denies high-grade fever or any chills denies any headache or URI symptoms no chest pain no shortness with occasional cough, some suprapubic discomfort but no flank pain no diarrhea on presentation to the hospital patient was afebrile no fever have recorded subsequently patient was not tachycardic hypotensive or hypoxic did have a white count of 3.17 with a left shift creatinine has been normal urine has been positive with concern for possible catheter associated UTI patient was started on ceftriaxone infectious disease was consulted for further management of antibiotic therapy Review of Systems Positive point and negatives has been mentioned in the HPI, complete review of systems was performed and all other systems are negative Past Medical History Past Medical History: Cancer, Eye Disorder, GI Bleed, Hyperlipidemia, Hypertension, Neurologic Disorder, Osteoarthritis (OA) Additional Past Medical History / Comment(s): Melanoma, bilateral glaucoma, Parkinson's disease, hand tremors, chronic anemia, diverticular disease, rectal bleed in past. Campbell catheter 2024 History of Any Multi-Drug Resistant Organisms: None Reported Past Surgical History: Hernia Repair, Orthopedic Surgery Additional Past Surgical History / Comment(s): Bilateral inguinal hernia repairs, bilateral rotator cuff surgery, ORIF L ankle, L knee arthroscopy, colonoscopies, bilateral cataract removals/lens implants, skin cancer removal on back. Past Anesthesia/Blood Transfusion Reactions: No Reported Reaction Past Psychological History: No Psychological Hx Reported Smoking Status: Never smoker Past Alcohol Use History: Rare Past Drug Use History: None Reported - Past Family History Father Family Medical History: Cancer Additional Family Medical History / Comment(s): Lung cancer. Father was a smoker. Mother Family Medical History: Neurologic Disorder Additional Family Medical History / Comment(s): Polio Medications and Allergies Home Medications Medication Instructions Recorded Confirmed Type Carbidopa-Levodopa 25-100 mg 3 tab PO BID@0800,1200 10/14/19 02/05/25 History [Sinemet 25-100 mg] Simvastatin [Zocor] 40 mg PO HS 10/14/19 02/05/25 History Carbidopa-Levodopa 25-100 mg 2 tab PO BID@1600,2000 10/17/23 02/05/25 History [Sinemet 25-100 mg] Escitalopram [Lexapro] 5 mg PO HS 10/17/23 02/05/25 History Midodrine HCl [ProAmantine] 2.5 mg PO TID 10/17/23 02/05/25 History Tamsulosin [Flomax] 0.4 mg PO BID 10/14/24 02/05/25 History Acetaminophen Tab [Tylenol] 650 mg PO Q6HR PRN tab 10/18/24 02/05/25 Rx Aspirin 325 mg PO BID #60 tab 10/18/24 02/05/25 Rx Dakins 0.25% Solution 1 applic TOPICAL DIRECTED PRN 02/05/25 02/05/25 History Ferrous Sulfate [Feosol] 325 mg PO DAILY 02/05/25 02/05/25 History HYDROcodone/APAP 5-325MG [Dobson 0.5 tab PO Q6H PRN 02/05/25 02/05/25 History 5-325] HYDROcodone/APAP 5-325MG [Dobson 1 tab PO BID PRN 02/05/25 02/05/25 History 5-325] Lactulose 20 gm PO DAILY 02/05/25 02/05/25 History Sodium Chloride [Saline Wound Wash] 1 dose TOPICAL DIRECTED PRN 02/05/25 02/05/25 History Spironolactone [Aldactone] 12.5 mg PO DAILY 02/05/25 02/05/25 History clonazePAM [KlonoPIN] 1 mg PO DAILY PRN 02/05/25 02/05/25 History polyethylene glycoL 3350 [Miralax] 17 gm PO DAILY 02/05/25 02/05/25 History Allergies Allergy/AdvReac Type Severity Reaction Status Date / Time No Known Allergies Allergy Verified 02/05/25 09:06 Physical Exam Vitals: Vital Signs Temp Pulse Pulse Pulse Pulse Resp BP 02/05/25 11:51 61 20 116/76 02/05/25 11:36 73 02/05/25 11:34 72 02/05/25 11:30 61 02/05/25 09:00 75 17 100/65 02/05/25 08:00 70 18 121/81 02/05/25 07:00 55 L 18 121/68 02/05/25 06:14 59 L 16 116/66 02/05/25 04:00 58 L 16 123/76 02/05/25 01:00 60 16 124/76 02/04/25 22:31 58 L 18 105/66 02/04/25 21:55 53 L 17 132/69 02/04/25 21:26 59 L 57 L 54 L 02/04/25 18:55 97.9 F 63 16 129/73 BP BP BP Pulse Ox 02/05/25 11:51 97 02/05/25 11:36 75/52 02/05/25 11:34 103/65 02/05/25 11:30 108/69 02/05/25 09:00 98 02/05/25 08:00 97 02/05/25 07:00 97 02/05/25 06:14 98 02/05/25 04:00 96 02/05/25 01:00 98 02/04/25 22:31 98 02/04/25 21:55 99 02/04/25 21:26 148/80 82/52 132/70 02/04/25 18:55 99 Intake and Output 02/04/25 02/05/25 02/05/25 22:59 06:59 14:59 Output Total 1300 Balance -1300 Output: Urine 1300 Other: Weight 79.379 kg GENERAL DESCRIPTION: Elderly male lying in bed, no distress. No tachypnea or accessory muscle of respiration use. HEENT: Shows Pallor , no scleral icterus. Oral mucous membrane is dry. NECK: Trachea central, no thyromegaly. LUNGS: Unlabored breathing. Clear to auscultation anteriorly. No wheeze or crack le. HEART: S1, S2, regular rate and rhythm. No loud murmur ABDOMEN: Soft, no tenderness , guarding or rigidity, no organomegaly EXTREMITIES: No edema of feet. SKIN: No rash, no masses palpable. NEUROLOGICAL: The patient is awake, alert, mood and affect normal. Results CBC & Chem 7: 02/05/25 07:24 02/05/25 07:24 Labs: Abnormal Lab Results - Last 24 Hours (Table) 02/04/25 02/04/25 02/05/25 Range/Units 19:46 20:07 07:24 WBC 4.18 L 3.17 L (4.50-10.00) 10*3/uL RBC 4.00 L (4.40-5.60) 10*6/uL Hgb 11.4 L 10.2 L (13.0-17.0) g/dL Hct 35.8 L 32.6 L (39.6-50.0) % MCH 25.7 L 25.5 L (27.0-32.0) pg MCHC 31.8 L 31.3 L (32.0-37.0) g/dL MPV 8.9 L 8.7 L (9.5-12.2) fL Neutrophils # 1.40 L (1.80-7.70) 10*3/uL D-Dimer (<0.60) mg/L FEU Creatinine (0.66-1.25) mg/dL Urine Protein 1+ H (Negative) Urine Ketones Trace H (Negative) Urine Blood Small H (Negative) Ur Leukocyte Esterase Large H (Negative) Urine RBC 14 H (0-5) /hpf Urine WBC >182 H (0-5) /hpf Urine Bacteria Moderate H (None) /hpf Urine Mucus Rare H (None) /hpf 02/05/25 02/05/25 Range/Units 07:24 10:40 WBC (4.50-10.00) 10*3/uL RBC (4.40-5.60) 10*6/uL Hgb (13.0-17.0) g/dL Hct (39.6-50.0) % MCH (27.0-32.0) pg MCHC (32.0-37.0) g/dL MPV (9.5-12.2) fL Neutrophils # (1.80-7.70) 10*3/uL D-Dimer 1.65 H (<0.60) mg/L FEU Creatinine 0.60 L (0.66-1.25) mg/dL Urine Protein (Negative) Urine Ketones (Negative) Urine Blood (Negative) Ur Leukocyte Esterase (Negative) Urine RBC (0-5) /hpf Urine WBC (0-5) /hpf Urine Bacteria (None) /hpf Urine Mucus (None) /hpf Assessment and Plan (1) Urinary tract infection Current Visit: No Status: Acute Code(s): N39.0 - URINARY TRACT INFECTION, SITE NOT SPECIFIED SNOMED Code(s): 22371083 Plan: 1patient presented because of generalized weakness with near syncope patient did have a chronic indwelling Campbell catheter with significantly positive UA some suprapubic pain and discomfort concerning for catheter associated UTI likely from enteric gram-negative pathogen 2-we will recommend change of his Campbell catheter obtain urine culture from the new Campbell 3-patient will be treated with Rocephin while waiting for the culture to finalize We will follow on clinical condition and cultures to further adjust medication if needed Thank you for this consultation we will follow the patient along with you Dictation was produced using [employer] dictation software. please excuse any grammatical, word or spelling errors. Time with Patient: Greater than 30
--- NOTE | 2025-02-06 13:33 | P.PN ---
Subjective Progress Note Date: 02/06/25 patient is 75-year-old gentleman with past medical history significant for parkinsonism, orthostatic hypotension who presented to the ER because of a near syncopal episode. Patient is resident of [facility] and was sent in for dizziness and a near syncopal episode. Patient was complaining of dizziness yesterday, patient has a home care nurse that normally follows up on him. Yesterday when she took his blood pressure it was found to be low. Patient is chronically on midodrine. Patient denies any fever or chills. Patient has been complaining of the lethargy and weakness. There is no complaint of chest pain. There is no complaint of palpitation. There is no complaint orthopnea or PND. Patient has a chronic Campbell because of this dizziness patient came to the ER Initial lab work done in the ER showed WBC 4.18, hemoglobin 11.4, platelet count 284, sodium 140, potassium 4.7, BUN 18, creatinine 0.79, glucose 84, lactate 1.1, bilirubin 0.8, AST 25, ALT 27, troponin 0.012 UA done showed urine nitrite positive, large amount of leukocyte Estrace, urine WBCs 182 EKG done in the ER showed heart rate of 53, no ST segment elevation or depression seen, no T-wave inversions seen. Chest x-ray done in the ER showed no acute cardiopulmonary process Patient admitted to internal medicine service 02/06. Patient seen examined. CTA chest done showed no PE, no acute cardiopulmonary process. Patient stated dizziness has improved. REVIEW OF SYSTEMS: CONSTITUTIONAL: No fever, no malaise,. CARDIOVASCULAR: No chest pain, no palpitations, no syncope. PULMONARY: No shortness of breath, no cough, GASTROINTESTINAL: No diarrhea, no nausea, no vomiting, no abdominal pain. NEUROLOGICAL: No headaches, no weakness, PHYSICAL EXAMINATION: GENERAL: The patient is alert and oriented x3, ill looking HEENT: Pupils are round and equally reacting to light. EOMI. No scleral icterus. No conjunctival pallor. Normocephalic, atraumatic. No pharyngeal erythema. No thyromegaly. CARDIOVASCULAR: S1 and S2 present. No murmurs, rubs, or gallops. PULMONARY: Chest is clear to auscultation, no wheezing or crackles. ABDOMEN: Soft, nontender, nondistended, normoactive bowel sounds. No palpable organomegaly. MUSCULOSKELETAL: No joint swelling or deformity. EXTREMITIES: No cyanosis, clubbing, or pedal edema. NEUROLOGICAL: Gross neurological examination did not reveal any focal deficits. SKIN: No rashes. Assessment and plan UTI Near syncope History of parkinsonism History of hypertension history of hyperlipidemia History of BPH Monitor vital signs Monitor CBC Monitor CMP Follow-up on urine cultures Continue IV Rocephin Continue IV hydration Continue aspirin, Lipitor Continue Flomax ID following, the recommendation noted from 02/05 Labs and medication were reviewed.. Continue same treatment. Continue with symptomatic treatment. Resume home medication. Monitor labs and vitals. DVT and GI prophylaxis. Further recommendations as per clinical course of the patient Dictation was produced using [employer] dictation software. please excuse any grammatical, word or spelling errors. Objective - Vital Signs Vital signs: Vital Signs Temp 98.0 F 02/06/25 07:00 Pulse 65 02/06/25 07:00 Resp 16 02/06/25 07:00 BP 93/3 02/06/25 07:00 Pulse Ox 96 02/06/25 07:00 FiO2 Intake & Output 02/05/25 02/06/25 02/06/25 18:59 06:59 18:59 Intake Total 118 Balance 118 Weight 79.379 kg Intake: Oral 118 Other: Voiding Method Indwelling Catheter - Labs CBC & Chem 7: 02/05/25 07:24 02/05/25 07:24 Labs: Microbiology - Last 24 Hours (Table) 02/05/25 04:24 Urine Culture - Preliminary Urine,Catheterized
--- NOTE | 2025-02-06 16:07 | P.PN ---
Subjective Progress Note Date: 02/06/25 Principal diagnosis: Reason for follow-up is catheter associated UTI Patient is a 75-year-old male with a past medical history significant for hypertension hyperlipidemia osteoarthritis Parkinson disease did have urinary retention requiring indwelling Campbell catheter presenting to the hospital with weakness and near syncopal episode, did have a positive UA suprapubic discomfort concerning for catheter associated UTI. On today's evaluation that is 02/06/2025,the patient remains to be afebrile, patient is on room air not requiring supplemental oxygen and denies any shortness of breath no chest pain or cough.Patient denies having any nausea or vomiting, no abdominal pain and no diarrhea has been reported. No new lab has been obtained today urine culture is currently pending Objective - Vital Signs Vital signs: Vital Signs Temp 97.5 F L 02/06/25 15:00 Pulse 66 02/06/25 15:00 Resp 18 02/06/25 15:00 BP 110/63 02/06/25 15:00 Pulse Ox 99 02/06/25 15:00 FiO2 Intake & Output 02/05/25 02/06/25 02/06/25 18:59 06:59 18:59 Intake Total 118 Balance 118 Weight 79.379 kg Intake: Oral 118 Other: Voiding Method Indwelling Catheter Indwelling Catheter - Exam GENERAL DESCRIPTION: An elderly male lying in bed in no distress RESPIRATORY SYSTEM: Unlabored breathing , decreased breath sounds at bases HEART: S1 S2 regular rate and rhythm , ABDOMEN: Soft , no tenderness EXTREMITIES: Left heel stage III pressure ulcer but no cellulitis - Labs CBC & Chem 7: 02/05/25 07:24 02/05/25 07:24 Labs: Microbiology - Last 24 Hours (Table) 02/05/25 04:24 Urine Culture - Preliminary Urine,Catheterized Assessment and Plan (1) Urinary tract infection Current Visit: No Status: Acute Code(s): N39.0 - URINARY TRACT INFECTION, SITE NOT SPECIFIED SNOMED Code(s): 98026940 (2) Decubitus ulcer of left heel, stage 3 Current Visit: Yes Status: Acute Code(s): L89.623 - PRESSURE ULCER OF LEFT HEEL, STAGE 3 SNOMED Code(s): 80963049653486 Plan: 1patient presented because of generalized weakness with near syncope patient did have a chronic indwelling Campbell catheter with significantly positive UA some suprapubic pain and discomfort concerning for catheter associated UTI likely from enteric gram-negative pathogen 2-patient also have a left heel stage III pressure ulcer recommended: Care with the [facility] and keep the area of the pressure 3-patient currently being treated Rocephin while waiting for the culture to finalize Dictation was produced using [employer] dictation software. please excuse any grammatical, word or spelling errors. Time with Patient: Less than 30
[2025-02-07] MEDS: MIDODRINE 5 MG TAB PO SCH (12:02)
[2025-02-07] MEDS: CARBIDOPA-LEVODOPA 25-100 MG 1 EACH TAB PO SCH (12:02)
--- NOTE | 2025-02-07 17:30 | P.PN ---
Subjective Progress Note Date: 02/07/25 This is a 75-year-old gentleman admitted with generalized weakness, near syncope , symptomatic acute UTI secondary to chronic indwelling Campbell catheter, left heel pressure ulcer stage III, orthostatic hypotension, recent left hip replacement status post fall 10/16 and multiple other medical issues maintained on IV fluid hydration, ceftriaxone. Sinemet and midodrine resumed.Patient has been on midodrine noted since September 2024. Positive orthostatic hypotension. Urine culture finalized with Enterococcus faecalis. Denies chest pain, palpitations or shortness of breath. Hemoglobin 10.2 ,platelets 249. Objective - Vital Signs Vital signs: Vital Signs Temp 98.1 F 02/07/25 12:30 Pulse 65 02/07/25 12:30 Resp 17 02/07/25 07:16 BP 118/75 02/07/25 12:30 Pulse Ox 98 02/07/25 07:20 FiO2 Intake & Output 02/06/25 02/07/25 02/07/25 18:59 06:59 18:59 Intake Total 540 Output Total 900 600 Balance -900 540 -600 Intake: Oral 540 Output: Urine 900 600 Other: Voiding Method Indwelling Catheter Indwelling Catheter Indwelling Catheter - Exam GENERAL:alert and oriented x3, NAD HEENT: Normocephalic, atraumatic ,pupils are round and equally reacting to light. EOMI. No scleral icterus. No conjunctival pallor. CARDIOVASCULAR: S1 and S2 present. No murmurs, rubs, or gallops. Neck supple, no JVD. PULMONARY: Unlabored, equal air entry, chest is clear to auscultation, no wheezing or crackles. ABDOMEN: Soft, nontender, nondistended, normoactive bowel sounds. No palpable organomegaly. EXTREMITIES: Left heel ulcer, stage III, no cyanosis, clubbing, or pedal edema. Peripheral pulses intact. NEUROLOGICAL: Gross neurological examination did not reveal any focal deficits. SKIN: No rashes. Microbiology 02/05/25 04:24 Urine,Catheterized Urine Culture - Final Enterococcus faecalis - Labs CBC & Chem 7: 02/05/25 07:24 02/05/25 07:24 Labs: Microbiology - Last 24 Hours (Table) 02/05/25 04:24 Urine Culture - Final Urine,Catheterized Enterococcus faecalis Assessment and Plan Assessment: Acute UTI with Enterococcus faecalis Orthostatic hypotension, patient has been on midodrine for nearly 6 mths Near syncope secondary to the above Recent left hip replacement secondary to femoral neck fracture, related to fall 10/16 Chronic iron deficient anemia Moderate to large hiatal hernia Extensive diverticulosis Decubitus ulcer left heel, stage III Parkinson's disease Hypertension Hyperlipidemia BPH Plan: Continue on current medication regimen ,monitoring and symptomatic treatment. IV fluids at 100 mLhr. Midodrine and Parkinson's regimen resumed .TORIE hose/compression sleeves ordered. Diet changed to regular .echo, EKG ordered. IV antibiotics /local wound care as per infectious disease. Ferrous sulfate/stool softener. PT/OT. The impression and plan of care has been dictated as directed. : I performed a history and examination of this patient, discussed the same with the dictator. I agree with the dictator's note ,documented as a scribe. Any additional findings or plans will be noted.
[2025-02-07] MEDS: AMPICILLIN-SULBACTAM 3 GM in SODIUM CHLORIDE 0.9% 100 ML IVPB SCH (17:52)
[2025-02-08 08:07] LABS: Basophils # (A) 0.08 X 10*3/uL (0.00-0.10); Basophils % (A) 1.7 %; Eosinophils # (A) 0.37 X 10*3/uL (0.04-0.35); Eosinophils % (A) 7.6 %; HCT 36.4 % (39.6-50.0); HGB 11.2 g/dL (13.0-17.0); Lymphocytes # (A) 1.24 X 10*3/uL (0.90-5.00); Lymphocytes % (A) 25.6 %; MCH 25.6 pg (27.0-32.0); MCHC 30.8 g/dL (32.0-37.0); MCV 83.1 FL (80.0-97.0); Mean Platelet Volume 9.4 FL (9.5-12.2); Monocytes # (A) 0.51 X 10*3/uL (0.20-1.00); Monocytes % (A) 10.5 %; NRBC Per 100 WBC 0 X 10*3/uL (0.00-0.01); Neutrophils # (A) 2.63 X 10*3/uL (1.80-7.70); Neutrophils % (A) 54.4 %; Platelet Count 284 X 10*3/uL (140-440); RBC 4.38 X 10*6/uL (4.40-5.60); RDW 21.5 % (11.5-14.5); WBC 4.84 X 10*3/uL (4.50-10.00)
[2025-02-08 08:21] LABS: BUN/Creat Ratio 13.83 Ratio (12.00-20.00); Blood Urea Nitrogen 8.3 mg/dL (9.0-27.0); Calcium 8.4 mg/dL (8.7-10.3); Chloride 108 mmol/L (96-109); Glucose 88 mg/dL (70-110); Potassium 4.1 mmol/L (3.5-5.5); Sodium 141 mmol/L (135-145)
--- NOTE | 2025-02-08 09:42 | CA ---
Transthoracic Echo Report Name: Derrek Rushing Age: 75 Gender: M : 1950 Exam Date: 02/07/2025 17:55 Exam Location: [facility] Ht (in): 74 Wt (lb): 175 Ordering Physician: Johana Torrez Attending/Referring Phys: Disability Attorney Jessica Lopez RDCS Procedure CPT: Indications: orthostatic hypotension Cardiac Hx: Technical Quality: Fair Contrast 1: Total Dose (mL): Contrast 2: Total Dose (mL): MEASUREMENTS (Male / Female) Normal Values 2D ECHO LV Diastolic Diameter PLAX 4.0 cm 4.2 - 5.9 / 3.9 - 5.3 cm LV Systolic Diameter PLAX 2.6 cm IVS Diastolic Thickness 1.0 cm 0.6 - 1.0 / 0.6 - 0.9 cm LVPW Diastolic Thickness 1.0 cm 0.6 - 1.0 / 0.6 - 0.9 cm LV Relative Wall Thickness 0.5 RV Internal Dim ED PLAX 3.4 cm LA Systolic Diameter LX 4.1 cm 3.0 - 4.0 / 2.7 - 3.8 cm LV Diastolic Volume MOD BP 111.1 cm??? 67 - 155 / 56 - 104 cm??? LV Systolic Volume MOD BP 41.4 cm??? 22 - 58 / 19 - 49 cm??? LV Ejection Fraction MOD BP 62.7 % >= 55 % LV Cardiac Index MOD BP 2194.1 cm???/min???m??? LV Diastolic Volume MOD 4C 125.8 cm??? LV Systolic Volume MOD 4C 47.5 cm??? LV Ejection Fraction MOD 4C 62.2 % LV Cardiac Index MOD 4C 2464.9 cm???/min???m??? LV Diastolic Length 4C 8.7 cm LV Systolic Length 4C 6.8 cm LV Diastolic Volume MOD 2C 97.9 cm??? LV Systolic Volume MOD 2C 34.7 cm??? LV Ejection Fraction MOD 2C 64.6 % LV Cardiac Index MOD 2C 1992.0 cm???/min???m??? LV Diastolic Length 2C 8.5 cm LV Systolic Length 2C 7.4 cm M-MODE Aortic Root Diameter MM 3.4 cm AV Cusp Separation MM 2.3 cm DOPPLER AV Peak Velocity 163.8 cm/s AV Peak Gradient 10.7 mmHg MV Area PHT 2.7 cm??? FINDINGS Left Ventricle Left ventricular ejection fraction is estimated at 55-60 %. Left ventricular cavity size normal. Left ventricular wall thickness normal. Normal left ventricular wall motion. Right Ventricle Mild right ventricular dilatation. Unable to estimate the right ventricular systolic pressure. Right Atrium Normal right atrial size. No right atrial thrombus or mass seen. Left Atrium Normal left atrial size. No left atrial thrombus or mass present. Mitral Valve Structurally normal mitral valve. No mitral stenosis, regurgitation or prolapse. Mitral annular calcification. Aortic Valve Trileaflet aortic valve. Aortic valve sclerosis. No aortic valve stenosis or regurgitation. Tricuspid Valve Structurally normal tricuspid valve. No tricuspid stenosis, regurgitation or prolapse. Pulmonic Valve Pulmonic valve not well visualized. No pulmonic regurgitation. Pericardium No pericardial effusion. Aorta Normal size aortic root and proximal ascending aorta. CONCLUSIONS Reason: Syncope/near syncope Normal LV size and function No significant valvular abnormalities No pericardial effusion Previewed by: Dr. Thierry Hinton MD (Electronically Signed) Final Date: 08 Feb 2025 09:41
[2025-02-08 10:04] VITALS: RESP 16
--- NOTE | 2025-02-08 13:55 | P.PN ---
Subjective Progress Note Date: 02/07/25 Principal diagnosis: Reason for follow-up is catheter associated UTI Patient is a 75-year-old male with a past medical history significant for hypertension hyperlipidemia osteoarthritis Parkinson disease did have urinary retention requiring indwelling Campbell catheter presenting to the hospital with weakness and near syncopal episode, did have a positive UA suprapubic discomfort concerning for catheter associated UTI. On today's evaluation that is 02/07/2025, the patient continues to be afebrile, the patient is on room air and breathing comfortably, the Pt denies having any chest pain or cough, the patient denies having any abdominal pain no vomiting or any diarrhea. Patient urine cultures gram-positive with Enterococcus faecalis no CBC was done today Objective - Vital Signs Vital signs: Vital Signs Temp 97.6 F 02/07/25 07:16 Pulse 58 L 02/07/25 07:20 Resp 17 02/07/25 07:16 BP 88/58 02/07/25 07:20 Pulse Ox 98 02/07/25 07:20 FiO2 Intake & Output 02/06/25 02/07/25 02/07/25 18:59 06:59 18:59 Intake Total 540 Output Total 900 Balance -900 540 Intake: Oral 540 Output: Urine 900 Other: Voiding Method Indwelling Catheter Indwelling Catheter Indwelling Catheter - Exam GENERAL DESCRIPTION: An elderly male lying in bed in no distress RESPIRATORY SYSTEM: Unlabored breathing , decreased breath sounds at bases HEART: S1 S2 regular rate and rhythm , ABDOMEN: Soft , no tenderness EXTREMITIES: Left heel stage III pressure ulcer but no cellulitis - Labs CBC & Chem 7: 02/08/25 05:22 02/08/25 05:22 Labs: Microbiology - Last 24 Hours (Table) 02/05/25 04:24 Urine Culture - Preliminary Urine,Catheterized Assessment and Plan (1) Decubitus ulcer of left heel, stage 3 Current Visit: Yes Status: Acute Code(s): L89.623 - PRESSURE ULCER OF LEFT HEEL, STAGE 3 SNOMED Code(s): 21170611788867 (2) Enterococcus UTI Current Visit: Yes Status: Acute Code(s): N39.0 - URINARY TRACT INFECTION, SITE NOT SPECIFIED; B95.2 - ENTEROCOCCUS THE CAUSE OF DISEASES CLASSIFIED ELSEWHERE SNOMED Code(s): 898942204919776 Plan: 1patient presented because of generalized weakness with near syncope patient did have a chronic indwelling Campbell catheter with significantly positive UA some suprapubic pain and discomfort concerning for catheter associated UTI likely from enteric gram-negative pathogen 2-patient also have a left heel stage III pressure ulcer recommended:, Local wound care with the Medihoney and keep the area of the pressure 3-patient urine has been finalized with Enterococcus faecalis discontinue Rocephin start the patient on Unasyn Dictation was produced using [employer] dictation software. please excuse any grammatical, word or spelling errors. Time with Patient: Less than 30
--- NOTE | 2025-02-08 13:56 | P.PN ---
Subjective Progress Note Date: 02/08/25 Principal diagnosis: Reason for follow-up is catheter associated UTI Patient is a 75-year-old male with a past medical history significant for hypertension hyperlipidemia osteoarthritis Parkinson disease did have urinary retention requiring indwelling Campbell catheter presenting to the hospital with weakness and near syncopal episode, did have a positive UA suprapubic discomfort concerning for catheter associated UTI. On today's evaluation that is 02/08/2025, Patient is afebrile patient is currently on room air and denies having any shortness of breath, the patient denies any chest pain or cough, the patient denies any nausea vomiting did not have any abdominal pain and no diarrhea complaining of some weakness. Patient white count normalized to 4.84 creatinine 0.6 Objective - Vital Signs Vital signs: Vital Signs Temp 98.1 F 02/08/25 07:55 Pulse 63 02/08/25 07:55 Resp 16 02/08/25 07:55 BP 141/73 02/08/25 07:55 Pulse Ox 97 02/08/25 07:55 FiO2 Intake & Output 02/07/25 02/08/25 02/08/25 18:59 06:59 18:59 Intake Total 120 Output Total 600 Balance -480 Intake: Oral 120 Output: Urine 600 Other: Voiding Method Indwelling Catheter Indwelling Catheter Indwelling Catheter - Exam GENERAL DESCRIPTION: An elderly male lying in bed in no distress RESPIRATORY SYSTEM: Unlabored breathing , decreased breath sounds at bases HEART: S1 S2 regular rate and rhythm , ABDOMEN: Soft , no tenderness EXTREMITIES: Left heel stage III pressure ulcer but no cellulitis - Labs CBC & Chem 7: 02/08/25 05:22 02/08/25 05:22 Labs: Abnormal Lab Results - Last 24 Hours (Table) 02/08/25 02/08/25 Range/Units 05:22 05:22 RBC 4.38 L (4.40-5.60) X 10*6/uL Hgb 11.2 L (13.0-17.0) g/dL Hct 36.4 L (39.6-50.0) % MCH 25.6 L (27.0-32.0) pg MCHC 30.8 L (32.0-37.0) g/dL RDW 21.5 H (11.5-14.5) % MPV 9.4 L (9.5-12.2) FL Eosinophils # 0.37 H (0.04-0.35) X 10*3/uL BUN 8.3 L (9.0-27.0) mg/dL Calcium 8.4 L (8.7-10.3) mg/dL Microbiology - Last 24 Hours (Table) 02/05/25 04:24 Urine Culture - Final Urine,Catheterized Enterococcus faecalis Assessment and Plan (1) Decubitus ulcer of left heel, stage 3 Current Visit: Yes Status: Acute Code(s): L89.623 - PRESSURE ULCER OF LEFT HEEL, STAGE 3 SNOMED Code(s): 59809459367173 (2) Enterococcus UTI Current Visit: Yes Status: Acute Code(s): N39.0 - URINARY TRACT INFECTION, SITE NOT SPECIFIED; B95.2 - ENTEROCOCCUS THE CAUSE OF DISEASES CLASSIFIED ELSEWHERE SNOMED Code(s): 278158234828791 Plan: 1patient presented because of generalized weakness with near syncope patient did have a chronic indwelling Campbell catheter with significantly positive UA some suprapubic pain and discomfort concerning for catheter associated UTI likely from enteric gram-negative pathogen 2-patient also have a left heel stage III pressure ulcer recommended:, Local wound care with the Medihoney and keep the area of the pressure 3-patient urine has been finalized with Enterococcus faecalis, plan is to finish therapy with oral Augmentin prescription sent to pharmacy discussed with LABORATORY TESTER for admitting team working on discharge Dictation was produced using [employer] dictation software. please excuse any grammatical, word or spelling errors. Time with Patient: Less than 30
[2025-02-08 15:53] VITALS: BP 100/57; PULSE 61; TEMP 97.9
--- NOTE | 2025-02-10 09:32 | P.DS ---
Providers Date of admission: 02/07/25 09:28 Expected date of discharge: 02/08/25 Attending physician: Rosales Genao Consults: 02/04/25 23:00 Consult Physician Routine Consulting Provider: Checo Pena Consult Reason/Comments: possible uti, zacarias catheter Do you want consulting provider notified?: Yes Primary care physician: Rosales Genao Hospital Course: Final Diagnoses: Acute UTI with Enterococcus faecalis Orthostatic hypotension, patient has been on midodrine for nearly 6 mths Near syncope secondary to the above Recent left hip replacement secondary to femoral neck fracture, related to fall 10/16 Chronic iron deficient anemia Moderate to large hiatal hernia Extensive diverticulosis Decubitus ulcer left heel, stage III Parkinson's disease Hypertension Hyperlipidemia BPH Hospital course:This is a 75-year-old gentleman admitted with generalized weakness, near syncope , symptomatic acute UTI secondary to chronic indwelling Zacarias catheter, left heel pressure ulcer stage III, orthostatic hypotension, recent left hip replacement status post fall 10/16 and multiple other medical issues maintained on IV fluid hydration, ceftriaxone. Sinemet and midodrine resumed.Patient has been on midodrine noted since September 2024. Positive orthostatic hypotension. Urine culture finalized with Enterococcus faecalis. Denies chest pain, palpitations or shortness of breath. Hemoglobin 10.2 ,platelets 249. IV fluids at 100 mLhr. Midodrine and Parkinson's regimen resumed .TORIE hose/compression sleeves ordered. Diet changed to regular .echo, EKG ordered. IV antibiotics /local wound care as per infectious disease. Ferrous sulfate/stool softener. PT/OT. 02/08/2025 afebrile, normal WBC. Hemoglobin 11.2. Blood pressure significantly improved, MAP of 71-95. denies chest pain, palpitations or shortness of breath. Denies lightheadedness, dizziness or focal deficits. Maintaining O2 sats in the high 90s on room air. Echo reported normal LV size and function, no significant valvular abnormalities, no pericardial effusion. Maintained on IV antibiotics as per infectious disease. Denies nausea vomiting or diarrhea. Denies abdominal pain. Infectious disease has cleared patient for discharge and recommending Augmentin to finish therapy, local wound care with Medihoney and keeping the area off pressure.. patient will be discharged home today in a stable condition with guarded prognosis. The impression and plan of care has been dictated as directed. : I performed a history and examination of this patient, discussed the same with the dictator. I agree with the dictator's note ,documented as a scribe. Any additional findings or plans will be noted. Patient Condition at Discharge: Stable Plan - Discharge Summary Discharge Rx Participant: No New Discharge Prescriptions: New Aspirin EC [Ecotrin Low Dose] 81 mg PO DAILY #1 tab Amoxic-Pot Clav 875-125Mg [Augmentin 875-125] 1 tab PO BID 5 Days #10 tab Continue Simvastatin [Zocor] 40 mg PO HS Carbidopa-Levodopa 25-100 mg [Sinemet 25-100 mg] 3 tab PO BID@0800,1200 Carbidopa-Levodopa 25-100 mg [Sinemet 25-100 mg] 2 tab PO BID@1599,1999 Midodrine HCl [ProAmantine] 2.5 mg PO TID Escitalopram [Lexapro] 5 mg PO HS clonazePAM [KlonoPIN] 1 mg PO DAILY PRN PRN Reason: Anxiety Ferrous Sulfate [Iron (65 MG Elemental)] 325 mg PO DAILY HYDROcodone/APAP 5-325MG [[place] 5-325] 0.5 tab PO Q6H PRN PRN Reason: Pain HYDROcodone/APAP 5-325MG [[place] 5-325] 1 tab PO BID PRN PRN Reason: Pain Sodium Chloride [Saline Wound Wash] 1 dose TOPICAL DIRECTED PRN PRN Reason: wound care Spironolactone [Aldactone] 12.5 mg PO DAILY Tamsulosin [Flomax] 0.4 mg PO BID Acetaminophen Tab [Tylenol] 650 mg PO Q6HR PRN tab PRN Reason: Mild Pain Or Fever > 100.5 Dakins 0.25% Solution 1 applic TOPICAL DIRECTED PRN PRN Reason: wound care Lactulose 20 gm PO DAILY polyethylene glycoL 3350 [Miralax] 17 gm PO DAILY Discontinued Aspirin 325 mg PO BID #60 tab Discharge Medication List Carbidopa-Levodopa 25-100 mg [Sinemet 25-100 mg] 3 tab PO BID@0800,1200 10/14/19 [History] Simvastatin [Zocor] 40 mg PO HS 10/14/19 [History] Carbidopa-Levodopa 25-100 mg [Sinemet 25-100 mg] 2 tab PO BID@1600,199910/17/23 [History] Escitalopram [Lexapro] 5 mg PO HS 10/17/23 [History] Midodrine HCl [ProAmantine] 2.5 mg PO TID 10/17/23 [History] Tamsulosin [Flomax] 0.4 mg PO BID 10/14/24 [History] Acetaminophen Tab [Tylenol] 650 mg PO Q6HR PRN tab 10/18/24 [Rx] Dakins 0.25% Solution 1 applic TOPICAL DIRECTED PRN 02/05/25 [History] Ferrous Sulfate [Iron (65 MG Elemental)] 325 mg PO DAILY 02/05/25 [History] HYDROcodone/APAP 5-325MG [[place] 5-325] 0.5 tab PO Q6H PRN 02/05/25 [History] HYDROcodone/APAP 5-325MG [[place] 5-325] 1 tab PO BID PRN 02/05/25 [History] Lactulose 20 gm PO DAILY 02/05/25 [History] Sodium Chloride [Saline Wound Wash] 1 dose TOPICAL DIRECTED PRN 02/05/25 [History] Spironolactone [Aldactone] 12.5 mg PO DAILY 02/05/25 [History] clonazePAM [KlonoPIN] 1 mg PO DAILY PRN 02/05/25 [History] polyethylene glycoL 3350 [Miralax] 17 gm PO DAILY 02/05/25 [History] Amoxic-Pot Clav 875-125Mg [Augmentin 875-125] 1 tab PO BID 5 Days #10 tab [Rx] Aspirin EC [Ecotrin Low Dose] 81 mg PO DAILY #1 tab 02/08/25 [Rx] Follow up Appointment(s)/Referral(s): Rosales Genao DO [Primary Care Provider] - 3 Days Medical Team,The [NON-STAFF] - As Needed Patient Instructions/Handouts: Syncope (DC), Hypotension (DC) Activity/Diet/Wound Care/Special Instructions: Send Steve gamino home with patient continue local wound care with medihoney and keep off pressure as prev. advised. Discharge Disposition: HOME WITH HOME HEALTH SERVICES
== END 2025-02-08 17:25 | disposition home health service (06) | DRG 698 ==
LOC: EC 18:53 → 6NMEDSUR 23:01 → OBSVTOIN 02-07 09:28
PROVIDERS: ADMIT Family Medicine; ATTEND Family Medicine
DX: T83.518A Infection and inflammatory reaction due to other urinary catheter, initial encounter (principal); L89.623 Pressure ulcer of left heel, stage 3; G20.A1 Parkinson's disease without dyskinesia, without mention of fluctuations; I10 Essential (primary) hypertension; D50.9 Iron deficiency anemia, unspecified; N39.0 Urinary tract infection, site not specified; N40.0 Benign prostatic hyperplasia without lower urinary tract symptoms; Z79.82 Long term (current) use of aspirin; Y84.6 Urinary catheterization as the cause of abnormal reaction of the patient, or of later complication, without mention of misadventure at the time of the procedure; Z79.899 Other long term (current) drug therapy; Z85.820 Personal history of malignant melanoma of skin; Z85.828 Personal history of other malignant neoplasm of skin; Z80.1 Family history of malignant neoplasm of trachea, bronchus and lung; Z87.440 Personal history of urinary (tract) infections; Z96.1 Presence of intraocular lens; Z96.642 Presence of left artificial hip joint; K57.30 Diverticulosis of large intestine without perforation or abscess without bleeding; K44.9 Diaphragmatic hernia without obstruction or gangrene; I95.1 Orthostatic hypotension; E78.5 Hyperlipidemia, unspecified; B95.2 Enterococcus as the cause of diseases classified elsewhere; Z87.19 Personal history of other diseases of the digestive system; Z98.42 Cataract extraction status, left eye; Z98.41 Cataract extraction status, right eye
CPT/HCPCS: 36415; 71046; 71275; 80048; 80053; 81001; 83605; 83735; 83880; 84484; 85025; 85379; 87077; 87086; 87186; 93005; 93306; 96361; 96365; 96375; 99285

== ENCOUNTER 2025-03-31 19:13 | Emergency (ER) | payer MEDICARE, OTHER ==
[2025-03-31 19:25] VITALS: RESP 16
--- NOTE | 2025-03-31 20:14 | ED ---
Male Urogenital HPI - General Chief complaint: Urogenital Stated complaint: cath issue Time Seen by Provider: 03/31/25 19:36 Source: patient, EMS Mode of arrival: EMS Limitations: no limitations - History of Present Illness Initial comments: 75-year-old male presenting with chief complaint of bleeding from the tip of his penis. Patient currently has a Campbell catheter in. He was getting a shower tonight and they noted some blood on the shower chair. He was sent here for further evaluation. He is having some tenderness near the tip of his penis. Th inks that the Campbell could have gotten pulled while he was getting ready to shower, however he does not know for sure. The bleeding has slowed down. He initially had a little bit of blood in side of the bag but there is now only urine in the bag. No abdominal pain, fever, chills, nausea, vomiting. - Related Data Home Medications Medication Instructions Recorded Confirmed Carbidopa-Levodopa 25-100 mg 3 tab PO BID@0800,1200 10/14/19 02/05/25 [Sinemet 25-100 mg] Simvastatin [Zocor] 40 mg PO HS 10/14/19 02/05/25 Carbidopa-Levodopa 25-100 mg 2 tab PO BID@1600,2000 10/17/23 02/05/25 [Sinemet 25-100 mg] Escitalopram [Lexapro] 5 mg PO HS 10/17/23 02/05/25 Midodrine HCl [ProAmantine] 2.5 mg PO TID 10/17/23 02/05/25 Tamsulosin [Flomax] 0.4 mg PO BID 10/14/24 02/05/25 Dakins 0.25% Solution 1 applic TOPICAL DIRECTED PRN 02/05/25 02/05/25 Ferrous Sulfate [Iron (65 MG 325 mg PO DAILY 02/05/25 02/05/25 Elemental)] HYDROcodone/APAP 5-325MG [[place] 0.5 tab PO Q6H PRN 02/05/25 02/05/25 5-325] HYDROcodone/APAP 5-325MG [[place] 1 tab PO BID PRN 02/05/25 02/05/25 5-325] Lactulose 20 gm PO DAILY 02/05/25 02/05/25 Sodium Chloride [Saline Wound Wash] 1 dose TOPICAL DIRECTED PRN 02/05/25 02/05/25 Spironolactone [Aldactone] 12.5 mg PO DAILY 02/05/25 02/05/25 clonazePAM [KlonoPIN] 1 mg PO DAILY PRN 02/05/25 02/05/25 polyethylene glycoL 3350 [Miralax] 17 gm PO DAILY 02/05/25 02/05/25 Previous Rx's Medication Instructions Recorded Acetaminophen Tab [Tylenol] 650 mg PO Q6HR PRN tab 10/18/24 Amoxic-Pot Clav 875-125Mg 1 tab PO BID 5 Days #10 tab 02/08/25 [Augmentin 875-125] Aspirin EC [Ecotrin Low Dose] 81 mg PO DAILY #1 tab 02/08/25 Allergies Allergy/AdvReac Type Severity Reaction Status Date / Time No Known Allergies Allergy Verified 03/31/25 19:25 Review of Systems ROS Statement: Those systems with pertinent positive or pertinent negative responses have been documented in the HPI. ROS Other: All systems not noted in ROS Statement are negative. Past Medical History Past Medical History: Cancer, Eye Disorder, GI Bleed, Hyperlipidemia, Hypertension, Neurologic Disorder, Osteoarthritis (OA) Additional Past Medical History / Comment(s): Melanoma, bilateral glaucoma, Parkinson's disease, hand tremors, chronic anemia, diverticular disease, rectal bleed in past. Campbell catheter 2024 History of Any Multi-Drug Resistant Organisms: None Reported Past Surgical History: Hernia Repair, Orthopedic Surgery Additional Past Surgical History / Comment(s): Bilateral inguinal hernia repairs, bilateral rotator cuff surgery, ORIF L ankle, L knee arthroscopy, colonoscopies, bilateral cataract removals/lens implants, skin cancer removal on back. Past Anesthesia/Blood Transfusion Reactions: No Reported Reaction Past Psychological History: No Psychological Hx Reported Smoking Status: Never smoker Past Alcohol Use History: Rare Past Drug Use History: None Reported - Past Family History Father Family Medical History: Cancer Additional Family Medical History / Comment(s): Lung cancer. Father was a smoker. Mother Family Medical History: Neurologic Disorder Additional Family Medical History / Comment(s): Polio General Exam Limitations: no limitations General appearance: alert, in no apparent distress Head exam: Present: atraumatic, normocephalic, normal inspection Eye exam: Present: normal appearance, EOMI Neck exam: Present: normal inspection. Absent: meningismus Respiratory exam: Absent: respiratory distress exam: Present: other (Small amount of dried blood near the tip of the penis and in the brief, no active bleeding seen on exam) Neurological exam: Present: alert, oriented X3 Psychiatric exam: Present: normal affect, normal mood Skin exam: Present: warm, dry, normal color Course Vital Signs 03/31/25 19:23 Temperature 98.2 F Pulse Rate 56 L Respiratory 16 Rate Blood Pressure 120/72 O2 Sat by Pulse 99 Oximetry Medical Decision Making - Medical Decision Making Was pt. sent in by a medical professional or institution (, [facility], DETECTOR CAR OPERATOR, urgent care, hospital, or [facility]...) When possible be specific @ -No Did you speak to anyone other than the patient for history (EMS, parent, family, police, friend...)? What history was obtained from this source @ -No Did you review nursing and triage notes (agree or disagree)? Why? @ -I reviewed and agree with nursing and triage notes Were old charts reviewed (outside hosp., previous admission, EMS record, old EKG, old radiological studies, urgent care reports/EKG's, [facility] records)? Report findings @ -No old charts were reviewed Differential Diagnosis (chest pain, altered mental status, abdominal pain women, abdominal pain men, vaginal bleeding, weakness, fever, dyspnea, syncope, headache, dizziness, GI bleed, back pain, seizure, CVA, palpatations, mental health, musculoskeletal)? @ -Differential includes trauma, kidney stone, UTI, not an all-inclusive list EKG interpreted by me (3pts min.). @ -As above X-rays interpreted by me (1pt min.). @ -None done CT interpreted by me (1pt min.). @ -None done U/S interpreted by me (1pt. min.). @ -None done What testing was considered but not performed or refused? (CT, X-rays, U/S, labs)? Why? @ -None What meds were considered but not given or refused? Why? @ -None Did you discuss the management of the patient with other professionals (professionals i.e. , LENKA, DETECTOR CAR OPERATOR, lab, RT, psych nurse, social service assistant, pattern and chain maker, teacher, command center officer, rehabilitation case coordinator)? Give summary @ -No Was smoking cessation discussed for >3mins.? @ -No Was critical care preformed (if so, how long)? @ -No Were there social determinants of health that impacted care today? How? (Homelessness, low income, unemployed, alcoholism, drug addiction, transportation, low edu. Level, literacy, decrease access to med. care, alf, rehab)? @ -No Was there de-escalation of care discussed even if they declined (Discuss DNR or withdrawal of care, Hospice)? DNR status @ -No What co-morbidities impacted this encounter? (DM, HTN, Smoking, COPD, CAD, Cancer, CVA, ARF, Chemo, Hep., AIDS, mental health diagnosis, sleep apnea, morbid obesity)? @ -None Was patient admitted / discharged? Hospital course, mention meds given and route, prescriptions, significant lab abnormalities, going to OR and other pertinent info. @ -75-year-old male who was having some bleeding from the tip of his penis around his Campbell catheter. This started when he was getting a shower this evening. Thinks that there may have been some trauma but is not completely sure. On examination there is a small amount of dried blood at the tip of the penis and in the brief. There is no active bleeding at this time. He has some mild discomfort near the tip of the penis. Was likely due to some trauma. Patient is doing well at this time and will be discharged back to his facility. Follow-up with PCP. Report back to ER with any new or worsening symptoms. Discussed return parameters and answered all questions. Patient conveyed verbal understanding and agreed to the plan. I discussed this case in detail with my attending Dr. Tijerina Undiagnosed new problem with uncertain prognosis? @ -No Drug Therapy requiring intensive monitoring for toxicity (Heparin, Nitro, Insulin, Cardizem)? @ -No Were any procedures done? @ -No Diagnosis/symptom? @ -Urethral trauma Acute, or Chronic, or Acute on Chronic? @ -Acute Uncomplicated (without systemic symptoms) or Complicated (systemic symptoms)? @ -Uncomplicated Side effects of treatment? @ -No Exacerbation, Progression, or Severe Exacerbation? @ -No Poses a threat to life or bodily function? How? (Chest pain, [place], NC, pneumonia, PE, COPD, DKA, ARF, appy, cholecystitis, CVA, Diverticulitis, Homicidal, Suicidal, threat to staff... and all critical care pts) @ -Unlikely Disposition Clinical Impression: Urethral trauma Disposition: HOME SELF-CARE Condition: Good Additional Instructions: Follow-up with your PCP and urologist. Report back to ER with any new or worsening symptoms. Is patient prescribed a controlled substance at d/c from ED?: No Referrals: Rosales Gneao DO [Primary Care Provider] - 1-2 days Deon Rangel MD [STAFF PHYSICIAN] - 1-2 days Time of Disposition: 20:14
[2025-03-31 21:13] VITALS: BP 134/72; PULSE 56; TEMP 98.1
== END 2025-03-31 21:12 | disposition home or self-care (01) ==
LOC: EC 19:13
DX: S37.30XA Unspecified injury of urethra, initial encounter (principal); W18.2XXA Fall in (into) shower or empty bathtub, initial encounter; Y84.6 Urinary catheterization as the cause of abnormal reaction of the patient, or of later complication, without mention of misadventure at the time of the procedure
CPT/HCPCS: 99283